=== PATIENT | female | born 1925 | race Caucasian/White ===

== ENCOUNTER 2016-09-08 17:18 | Inpatient (IN) | payer OTHER ==
[~2016-09-08] VITALS: Ht 149.9 cm; Wt 59.0 kg
[2016-09-08] MEDS ORDERED: SODIUM CHLORIDE 0.9% 1000ML 1,000 ML IV ONE (17:34)
--- NOTE | 2016-09-08 17:42 | EMERGENCY ROOM VISIT NOTE ---
History Report prepared by [place]: Karlo Alfonso Under the Supervision of: Dr. Bruce Min D.O. First contact with patient: 17:26 Chief Complaint: HYPOTENSION Stated Complaint: LOW BP, FEVER- PHYSICIAN REFERRED History of Present Illness The patient is an 89 year old female who presents to the Emergency Room with complaints of persistent hypotension that was detected prior to arrival today. She states that she saw her primary care physician prior to arrival today, and she was found to have a fever of 102 in addition to the hypotension. She was then referred here for evaluation. For the past few weeks, the patient states that she has had multiple episodes at night where she gets very cold and needs more covers. She then wakes up in the middle of the night, hot and diaphoretic. She says that she has never had anything like that before. The patient notes that she has had a mild headache recently as well as low left-sided back pain. She has been feeling nauseous and had dry heaves occasionally. She denies vomiting, urinary symptoms, or leg swelling. The patient sees a oracle database manager regularly. She is an ex-smoker and does not drink alcohol. Her medical problems include hypertension and acid reflux. She takes medication for her hypertension and acid reflux. She also takes a baby aspirin regularly. The patient has had a hysterectomy. Source of History: patient, family Onset: Detected prior to arrival today Position: other (global - hypotension) Timing: other (persistent) Associated Symptoms: + back pain, + diaphoresis, + fevers, + headache, + nausea, No urinary symptoms, No vomiting Note: Associated symptoms: Episodes of being cold at night. Denies leg swelling. Review of Systems See HPI for pertinent positives & negatives. A total of 10 systems reviewed and were otherwise negative. Past Medical & Surgical Medical Problems: (1) Acid reflux (2) Complicated UTI (urinary tract infection) (3) HTN (hypertension) Surgical Problems: (1) History of hysterectomy Family History Family history omitted secondary to advanced age. Social History Smoking Status: Former Smoker Alcohol Use: none Marital Status: Occupation Status: retired Current/Historical Medications Scheduled Aspirin (Aspirin Chewable), 81 MG PO DAILY Furosemide (Lasix), 20 MG PO DAILY Lisinopril (Zestril), 40 MG PO DAILY Multiple Vitamins W/ Minerals (Centrum Silver Adult 50+), 1 TAB PO DAILY Omeprazole (Prilosec), 20 MG PO DAILY Potassium Chloride (Klor-Con M20), 20 MEQ PO DAILY Allergies Coded Allergies: Aspirin (Unverified Allergy, Unknown, unknown, 09/08/16) Codeine (Unverified Allergy, Unknown, unknown, 09/08/16) Physical Exam Vital Signs Date Time Temp Pulse Resp B/P Pulse Ox O2 Delivery O2 Flow Rate FiO2 09/08/16 19:31 77 20 122/55 97 Room Air 09/08/16 17:44 97 Room Air 09/08/16 17:34 90 09/08/16 17:21 37.4 93 18 113/62 97 Room Air Physical Exam GENERAL: Patient is awake, alert, and in no acute distress. Patient is resting comfortably and showing no signs of anxiety EYES: The conjunctivae are clear. The pupils are round and reactive. EARS, NOSE, MOUTH AND THROAT: The nose is without any evidence of any deformity. Mucous membranes are dry tongue is midline NECK: The neck is nontender and supple. RESPIRATORY: Lung sounds diminished at both bases, faint rales noted at both bases. CARDIOVASCULAR: Regular rate and rhythm noted there no murmurs rubs or gallops normal S1 normal S2 GASTROINTESTINAL: The abdomen is mildly distended but soft, no specific tenderness, guarding, or rigidity noted. BACK: No midline tenderness or or step-off noted range of motion in flexion extension as well as rotation no signs of muscle spasm noted MUSCULOSKELETAL/EXTREMITIES: There is no evidence of gross deformity full range of motion is noted in the hips and shoulders SKIN: There is no obvious evidence of any rash. There are no petechiae, pallor or cyanosis noted. NEUROLOGIC: Patient is awake alert and oriented x3. Medical Decision & Procedures ER Provider Diagnostic Interpretation: Radiology results as stated below per my review and radiologist interpretation: CHEST ONE VIEW PORTABLE CLINICAL HISTORY: Sepsis fever COMPARISON STUDY: None FINDINGS: Moderate cardiomegaly. Infiltrate left base. Lungs otherwise appear clear. IMPRESSION: Infiltrate left base. Moderate cardiomegaly. Electronically signed by: Neal Obrien M.D. 09/08/2016 6:20 PM Dictated Date/Time: 09/08/2016 6:19 PM ABDOMEN AND PELVIS CT WITHOUT CONTRAST CT DOSE: 273.63 mGy.cm HISTORY: Flank pain left flank pain TECHNIQUE: Multiaxial CT images of the abdomen and pelvis were performed without contrast. COMPARISON STUDY: None. FINDINGS: Focal infiltrate left base. Small left effusion. Small fixed hernia. Right base is clear. Moderate cortical scarring right kidney. Liver is unremarkable. Left renal hydronephrosis. Mild left renal perinephric fat stranding. 5 mm obstructing calculus distal left ureter. Bladder is midline. Chronic colonic diverticulosis. Nonobstructive bowel pattern. IMPRESSION: 1. 5 mm obstructing calculus distal left ureter. 2. Left renal hydroureteronephrosis. 3. Small parenchymal infiltrate left base combined with a small left effusion. Electronically signed by: Neal Obrien M.D. 09/08/2016 6:29 PM Dictated Date/Time: 09/08/2016 6:27 PM Laboratory Results Test 09/08/16 00:00 09/08/16 17:39 09/08/16 17:44 09/08/16 19:15 Stool Occult Blood NEGATIVE (NEGATIVE) Erythrocyte Sedimentation Rate > 90 mm/hr (0-21) Prothrombin Time 11.6 SECONDS (9.0-12.0) Prothromb Time International Ratio 1.1 (0.9-1.1) Activated Partial Thromboplast Time 27.3 SECONDS (21.0-31.0) Partial Thromboplastin Ratio 1.1 Magnesium Level 2.2 mg/dl (1.8-2.4) Total Bilirubin 0.6 mg/dl (0.2-1) Aspartate Amino Transf (AST/SGOT) 28 U/L (15-37) Alanine Aminotransferase (ALT/SGPT) 35 U/L (12-78) Alkaline Phosphatase 76 U/L (45-117) Total Creatine Kinase 74 U/L (26-192) Creatine Kinase MB < 0.5 ng/ml (0.5-3.6) Creatine Kinase MB Ratio (0-3.0) Troponin I < 0.015 ng/ml (0-0.045) C-Reactive Protein 21.50 mg/dl (0-0.29) Pro-B-Type Natriuretic Peptide 1417 pg/ml (0-1800) Total Protein 7.3 gm/dl (6.4-8.2) Albumin 2.5 gm/dl (3.4-5.0) Globulin 4.8 gm/dl (2.5-4.0) Albumin/Globulin Ratio 0.5 (0.9-2) Lipase 129 U/L (73-393) Thyroid Stimulating Hormone (TSH) 1.510 uIu/ml (0.300-4.500) Bedside Lactic Acid Venous 1.11 mmol/L (0.90-1.70) Urine Color DK YELLOW Urine Appearance CLOUDY (CLEAR) Urine pH 5.0 (4.5-7.5) Urine Specific [place] 1.016 (1.000-1.030) Urine Protein 2+ (NEG) Urine Glucose (UA) NEG (NEG) Urine Ketones NEG (NEG) Urine Occult Blood 1+ (NEG) Urine Nitrite NEG (NEG) Urine Bilirubin NEG (NEG) Urine Urobilinogen NEG (NEG) Urine Leukocyte Esterase LARGE (NEG) Urine WBC (Auto) >30 /hpf (0-5) Urine RBC (Auto) 0-4 /hpf (0-4) Urine Hyaline Casts (Auto) 1-5 /lpf (0-5) Urine Epithelial Cells (Auto) 0-5 /lpf (0-5) Urine Bacteria (Auto) 4+ (NEG) Date/Time Source Procedure Growth Status 09/08/16 00:00 Stool C.difficile Toxin B Gene (PCR) - Final No C. difficile toxin B gene detected Complete Laboratory results per my review. Medications Administered Medications (Trade) Dose Ordered Sig/Rissa Route Start Time Stop Time Status Last Admin Dose Admin Sodium Chloride (Nss 1000ml) 1,000 ml @ 999 mls/hr Q1H1M ONCE IV 09/08/16 17:34 09/08/16 18:34 DC 09/08/16 17:58 999 MLS/HR Acetaminophen (Tylenol Tab) 650 mg ONE ONCE PO 09/08/16 17:45 09/08/16 17:46 DC 09/08/16 17:59 650 MG Levofloxacin (Levaquin / D5W) 750 mg NOW STAT IV 09/08/16 18:46 09/08/16 18:47 DC 09/08/16 20:11 750 MG Piperacillin Sod/ Tazobactam Sod 3.375 gm 3.375 gm NOW STAT IV 09/08/16 18:46 09/08/16 18:47 DC 09/08/16 18:46 3.375 GM Sodium Chloride (Nss 1000ml) 1,000 ml @ 250 mls/hr Q4H STAT IV 4/19/17 19:16 09/08/16 21:42 DC 09/08/16 19:29 250 MLS/HR Tamsulosin HCl (Flomax Cap) 0.4 mg NOW STAT PO 09/08/16 20:00 09/08/16 20:01 DC 09/08/16 20:00 0.4 MG ECG Indication: nausea Rate (beats per minute): 83 Rhythm: normal sinus Findings: no ectopy, other (no acute ST segment abnormalities) Comparison ECG Date: no prior available ED Course 172: The patient was evaluated in room B2. A complete history and physical examination were performed. 173: Ordered NSS 1000 ml @ 999 mls/hr IV. 174: Ordered Tylenol Tab 650 mg PO. 1849: I reevaluated the patient and she is resting comfortably. The patient verbally expressed understanding and agreement with the treatment plan. The patient will be evaluated for further treatment. 1915: Ordered NSS 1000 ml @ 250 mls/hr IV. 1916: I discussed the patient with Dr. Jazz Macias inspector bullet slugs. He will evaluate the patient for further treatment. Medical Decision Triage Nursing notes reviewed. Additional history obtained from family. Differential diagnosis: Etiologies such as viral syndrome, otitis, pharyngitis, pneumonia, influenza, meningitis, urinary tract infection, sepsis, bacteremia, as well as others were entertained. The patient is an 89-year-old female who presented to the emergency department for fever and weakness. The patient was seen her primary care physician's office and was sent to the emergency department for hypotension and fever. The patient also had left flank pain. I was unsure if her symptoms were secondary to pyelonephritis but degree of pain prompting a CAT scan the abdomen and pelvis. This did reveal signs of a distal left ureteral calculus with hydronephrosis. Her urinalysis appeared to be consistent with urinary tract infection. The patient was given IV fluids and IV antibiotics in the emergency department. She was reevaluated multiple times. I discussed the patient's laboratory and radiographic studies with her and her family members. I also discussed his case with the on-call [facility] hospitalist. They've agreed to evaluate the patient in the emergency department for further management and disposition. Consults Time Called: 1914 Consulting Physician: Dr. Jazz Macias inspector [employer] Returned Call: 1916 I discussed the patient with Dr. Jazz Macias inspector bullet slugs. He will evaluate the patient for further treatment. Impression Primary Impression: Pneumonia involving left lung Additional Impressions: Left ureteral calculus Hydronephrosis, left Pyelonephritis Scribe Attestation The scribe's documentation has been prepared under my direction and personally reviewed by me in its entirety. I confirm that the note above accurately reflects all work, treatment, procedures, and medical decision making performed by me. Departure Information Dispostion Being Evaluated By Hospitalist Vira Casey M.D. (PCP) Patient Instructions My [facility] Problem Qualifiers Primary Impression: Pneumonia involving left lung Pneumonia type: due to unspecified organism Lung location: lower lobe of lung Qualified Codes: J18.1 - Lobar pneumonia, unspecified organism
[2016-09-08] MEDS ORDERED: ACETAMINOPHEN 325 MG TAB PO ONE (17:45)
[2016-09-08 18:04] LABS: MEAN CELL VOLUME 88.7 fL (80-100); MEAN CORPUSCULAR HEMOGLOBIN 30.1 pg (25-34); MEAN CORPUSCULAR HGB CONC 33.9 g/dl (32-36); PLATELET COUNT 373 K/uL (130-400); RED BLOOD COUNT 3.72 M/uL (4.2-5.4); WHITE BLOOD COUNT 14.57 K/uL (4.8-10.8)
[2016-09-08] MEDS ORDERED: MCRK20 PO (18:08)
[2016-09-08] MEDS ORDERED: ASPCH81X PO (18:08)
[2016-09-08] MEDS ORDERED: PRLSR20 PO (18:08)
[2016-09-08] MEDS ORDERED: MULT-845 PO (18:08)
[2016-09-08] MEDS ORDERED: FURO-85 PO (18:08)
[2016-09-08] MEDS ORDERED: LISI40TA PO (18:08)
[2016-09-08 18:15] LABS: INR 1.1 (0.9-1.1); PARTIAL THROMBOPLASTIN RATIO 1.1; PROTHROMBIN TIME (PATIENT) 11.6 SECONDS (9.0-12.0)
--- NOTE | 2016-09-08 18:22 | DIAGNOSTIC IMAGING REPORT ---
CHEST ONE VIEW PORTABLE CLINICAL HISTORY: Sepsis fever COMPARISON STUDY: None FINDINGS: Moderate cardiomegaly. Infiltrate left base. Lungs otherwise appear clear. IMPRESSION: Infiltrate left base. Moderate cardiomegaly. Electronically signed by: Neal Obrien M.D. 09/08/2016 6:20 PM Dictated Date/Time: 09/08/2016 6:19 PM
[2016-09-08 18:23] LABS: ALT/SGPT 35 U/L (12-78); AST/SGOT 28 U/L (15-37); BLOOD UREA NITROGEN 35 mg/dl (7-18); BUN/CREATININE RATIO 17.5 (10-20); CALCIUM 8.4 mg/dl (8.5-10.1); CARBON DIOXIDE 21 mmol/L (21-32); CHLORIDE 102 mmol/L (98-107); GLUCOSE 128 mg/dl (70-99); MAGNESIUM 2.2 mg/dl (1.8-2.4); POTASSIUM 4.3 mmol/L (3.5-5.1); SODIUM 133 mmol/L (136-145)
[2016-09-08 18:28] LABS: BASO % 0.1 %; BASO ABS # 0.02 K/uL (0-0.2); COMPLETE YES; EOS % 0.1 %; IG% 0.2 %; LYMPH % 6.5 %; LYMPH ABS # 0.94 K/uL (1.2-3.4); MONO % 5.3 %; NEUT % 87.8 %
[2016-09-08 18:32] LABS: ALB/GLOB RATIO 0.5 (0.9-2); ALKALINE PHOSPHATASE 76 U/L (45-117); PHOSPHORUS 2.4 mg/dl (2.5-4.9)
--- NOTE | 2016-09-08 18:32 | DIAGNOSTIC IMAGING REPORT ---
ABDOMEN AND PELVIS CT WITHOUT CONTRAST CT DOSE: 273.63 mGy.cm HISTORY: Flank pain left flank pain TECHNIQUE: Multiaxial CT images of the abdomen and pelvis were performed without contrast. COMPARISON STUDY: None. FINDINGS: Focal infiltrate left base. Small left effusion. Small fixed hernia. Right base is clear. Moderate cortical scarring right kidney. Liver is unremarkable. Left renal hydronephrosis. Mild left renal perinephric fat stranding. 5 mm obstructing calculus distal left ureter. Bladder is midline. Chronic colonic diverticulosis. Nonobstructive bowel pattern. IMPRESSION: 1. 5 mm obstructing calculus distal left ureter. 2. Left renal hydroureteronephrosis. 3. Small parenchymal infiltrate left base combined with a small left effusion. Electronically signed by: Neal Obrien M.D. 09/08/2016 6:29 PM Dictated Date/Time: 09/08/2016 6:27 PM
[2016-09-08] MEDS ORDERED: LEVAQUIN 750MG / 150ML D5W IV STA (18:46)
[2016-09-08] MEDS ORDERED: PIPERACILLIN/TAZOBACTAM 3.375 GM/100ML D5W IV STA (18:46)
[2016-09-08] MEDS ORDERED: SODIUM CHLORIDE 0.9% 1000ML 1,000 ML IV STA (19:16)
[2016-09-08 19:47] LABS: URINE APPEARANCE CLOUDY (CLEAR); URINE BILIRUBIN NEG (NEG); URINE COLOR DK YELLOW; URINE EPITHELIAL CELL AUTO 0-5 /lpf (0-5); URINE NITRITE NEG (NEG); URINE SPECIFIC GRAVITY 1.016 (1.000-1.030); UROBILINOGEN NEG (NEG); ZZURINE CULT IF INDIC CATH YES
[2016-09-08 19:53] LABS: MANUAL MICROSCOPIC REQUIRED? NO; REVIEW REQ? NO
[2016-09-08] MEDS ORDERED: TAMSULOSIN HCL 0.4 MG CAP PO STA (20:00)
[2016-09-08] MEDS ORDERED: ACETAMINOPHEN 325 MG TAB PO PRN (20:30)
[2016-09-08] MEDS ORDERED: ONDANSETRON INJ 2 MG/ML 2 ML VIAL IV PRN (20:30)
[2016-09-08] MEDS ORDERED: SODIUM PHOSPHATE 3 MMOL/1 ML INFUSION IV ONE (20:30)
[2016-09-08] MEDS ORDERED: TRAMADOL HCL 50 MG TAB PO PRN (20:30)
[2016-09-08] MEDS ORDERED: HYDROmorphone INJ 0.5 MG/0.5 ML SYR IV PRN (20:30)
[2016-09-08] MEDS ORDERED: SODIUM PHOSPHATE INJ 15 MMOL in SODIUM CHLORIDE 0.9% 250ML 250 ML IV STA (21:21)
[2016-09-08] MEDS: SODIUM CHLORIDE 0.9% 1000ML 1,000 ML IV SCH (21:55)
[2016-09-08 22:04] VITALS: BP 148/74; PULSE 82; TEMP 36.4; O2SAT 98; Ht 149.9 cm; Wt 59.0 kg
--- NOTE | 2016-09-08 22:16 | HISTORY & PHYSICAL EXAMINATION ---
DATE OF ADMISSION: 09/08/2016 PRIMARY CARE PHYSICIAN: Dr. Norah Betts obtained from px and records. CHIEF COMPLAINT: Left flank pain, low blood pressure. HISTORY OF PRESENT ILLNESS: Medical history significant for hypertension, past tobacco abuse, chronic renal insufficiency (baseline creatinine of 1.3-1.5), hx mixed urinary incontinence as per records. hx GERD, diverticulosis, colonic polyps, internal hemorrhoids, Hypothyroidism. Few days' history of achy left flank pain. No chest pain, no shortness of breath. Denies cough, aspiration. Fever 102 at home, chills. Diarrhea, which she has from time to time. non-bloody. No recent antibiotics. No known sick contacts. Patient seen at PCP's office. Blood pressure noted to be on the low side, 100s. Patient sent to the Emergency Room. Given Levaquin and Zosyn for possible UTI. MEDICAL HISTORY: As above. Colonoscopy in 2011 showed polyps, diverticulosis, internal hemorrhoids. SURGICAL HISTORY: She has had hysterectomy, cholecystectomy, cystoscopy, gynecologic procedures. HOME MEDICATIONS: Include lisinopril, furosemide, omeprazole, potassium chloride, aspirin, multivitamins. ALLERGIES: CODEINE, NSAIDS. FAMILY HISTORY: Heart disease, liver cancer. PERSONAL AND SOCIAL HISTORY: Past tobacco abuse. No chronic intake of alcoholic beverages. Retired from factory work. REVIEW OF SYSTEMS: As per HPI. All other ROS negative. PHYSICAL EXAMINATION: VITAL SIGNS: Blood pressure was noted to be 113/62, pulse rate 92, RR 18 T 36.6 , sats 98 on room air. GENERAL: Noted to be comfortable. Looks younger for stated age. SKIN: Pallor. HEENT: Pale palpebral conjunctivae. Dry mucosa. NECK: Short. LUNGS: Decreased breath sounds. HEART: Regular rate and rhythm. ABDOMEN: Left abdominal tenderness. EXTREMITIES: No edema. no tenderness NEUROLOGIC: No gross focality. LABORATORY DATA: Hemoglobin was noted to be 11.3, hematocrit 30, white count 14.5, platelets 373. Sodium 133, potassium 4.3, chloride 102, BUN 35, creatinine 2, glucose of 128. Chest x-ray, infiltrate in the left base, moderate cardiomegaly. CT abdomen and pelvis, a 5-mm obstructing calculus, distal left ureter, left renal hydronephrosis. UA, WBC esterase positive, occult blood. ASSESSMENT: 1. Complicated urinary tract infection possible sepsis. 2. Hypertension, stable 3. ARF on CRI poss from obstructive uropathy. 4. Diarrhea, possible irritable bowel syndrome, seems to be chronic. 5. Anemia. Hemoglobin drop from patient's baseline this month possibly from microscopic hematuria, renal disease ro occult GI bleed 6. hx past tobacco abuse. PLAN: GMF Cultures, IV Ceftriaxone monitor crea response to IV fluids. Hold home diuretics, MADISYN inhibitor until creatinine at baseline strain urine, Flomax trial. Urology consult RE obstructive uropathy. Anemia workup. DVT prophylaxis SCDs RE anemia. Full code. MTDD
[2016-09-08 23:20] VITALS: BP 159/77; PULSE 79; TEMP 36.6; O2SAT 99
[2016-09-09] MEDS ORDERED: LOPERAMIDE HCL 2 MG CAP PO PRN (01:15)
[2016-09-09] MEDS ORDERED: LORAZEPAM 0.5 MG TAB PO STA (03:09)
[2016-09-09 05:41] LABS: HEMATOCRIT 27.1 % (37-47); MEAN CELL VOLUME 88.9 fL (80-100); MEAN CORPUSCULAR HEMOGLOBIN 30.5 pg (25-34); MEAN CORPUSCULAR HGB CONC 34.3 g/dl (32-36); MEAN PLATELET VOLUME 8.3 fL (7.4-10.4); PLATELET COUNT 270 K/uL (130-400); RED BLOOD COUNT 3.05 M/uL (4.2-5.4); WHITE BLOOD COUNT 11.61 K/uL (4.8-10.8)
[2016-09-09 06:03] LABS: BASO % 0.2 %; BASO ABS # 0.02 K/uL (0-0.2); COMPLETE YES; ECHINOCYTES 1+; EOS % 0.4 %; IG% 0.4 %; LYMPH % 6.4 %; LYMPH ABS # 0.74 K/uL (1.2-3.4); MONO % 5.1 %; NEUT % 87.5 %
[2016-09-09 06:20] LABS: BUN/CREATININE RATIO 16.2 (10-20); CREATININE 1.8 mg/dl (0.60-1.20); FERRITIN 495.5 ng/ml (8.0-388.0); PHOSPHORUS 4.1 mg/dl (2.5-4.9); POTASSIUM 3.6 mmol/L (3.5-5.1)
[2016-09-09 07:16] VITALS: BP 125/73; PULSE 87; TEMP 36.7; O2SAT 94
[2016-09-09] MEDS: TAMSULOSIN HCL 0.4 MG CAP PO SCH (07:47)
[2016-09-09] MEDS: PANTOprazole SOD 40 MG TAB PO SCH (07:48)
[2016-09-09] MEDS: CEROVITE ADV FORMULA TAB PO SCH (07:48)
[2016-09-09 08:00] VITALS: O2SAT 94
[2016-09-09] MEDS ORDERED: CEFTRIAXONE SOD INJ 1 GM in DEXTROSE 5% ADD-VANTAGE 50ML 50 ML IV SCH (08:00)
--- NOTE | 2016-09-09 09:51 | Clinical Documentation Query ---
QUERY 1 OF [address] SAUCEDA, In your clinical opinion is this patient being managed for: ( ) Pneumonia ( ) Other explanation of clinical findings (Please Explain) ( ) Unable to determine (Please Define) ( ) Need to Discuss ( + ) Not Agree Clinically has no signs of pneumonia. IV Rocephin is for complicated UTI, not for pneumonia The medical record reflects the following clinical findings, treatment, and risk factors. Clinical Indicators: 89 yo female presenting with fever, hypotension. CXR showed Infiltrate left base. Lung sounds diminished with faint rales bibasilar. WBC 14.54. ER impression suggests L lung pneumonia. Treatment: IV fluids, IV rocephin, APAP, IV levaquin, IV zosyn, Risk Factors: age, chronic kidney disease QUERY 2 OF 3 In your clinical opinion is this patient being managed for: (+ ) L ureteral calculus with L renal hydronephrosis ( ) Other explanation of clinical findings (Please Explain) ( ) Unable to determine (Please Define) ( ) Need to Discuss ( ) Not Agree The medical record reflects the following clinical findings, treatment, and risk factors. Clinical Indicators: CT abdomen and pelvis showed a 5-mm obstructing calculus, distal left ureter, left renal hydronephrosis. Treatment: IV fluids, IV levaquin, IV zosyn, IV rocephin, Urology consult Risk Factors: age, gender, several weeks of symptoms, UTI QUERY 3 OF 3 In your clinical opinion is this patient being managed for: ( + ) Chronic kidney disease, stage 3 ( ) Chronic kidney disease, stage 4 ( ) Other explanation of clinical findings (Please Explain) ( ) Unable to determine (Please Define) ( ) Need to Discuss ( ) Not Agree The medical record reflects the following clinical findings, treatment, and risk factors. Clinical Indicators: H/P reflects pt with chronic renal insufficiency (baseline Cr 1.3-1.5). Documenting the stage of CKD will improve data integrity and will help clarify vague terms such as "chronic renal insufficiency". GFR during this acute renal failure is 21.5-24.5. No available historical data in [employer]. Treatment: monitor PRP's, treat acute renal failure, and manage HTN Risk Factors: age, HTN Please clarify and document your clinical opinion in the progress notes and discharge summary. Terms such as "probable", "suspected", "likely", "questionable", "possible", or "still to be ruled out" are acceptable. IF IN AGREEMENT, YOU MUST DOCUMENT ABOVE DIAGNOSTIC STATEMENT IN DAILY PROGRESS NOTES AND DISCHARGE SUMMARY. This document is not part of the patient's record. Thank You, Debbie Babb RN [phone]
[2016-09-09] MEDS: SODIUM CHLORIDE 0.9% 1000ML 1,000 ML IV SCH (11:05)
[2016-09-09 14:44] VITALS: BP 122/70; PULSE 95; TEMP 36.6; O2SAT 97
--- NOTE | 2016-09-09 15:29 | Progress Note ---
Internal Med Progress Note Date of Service: Sep 09, 2016. Provider Documentation: SUBJECTIVE: Patient is doing better Left flank pain has improved No nausea, vomiting, fever, abdominal pain, chills since in hospital OBJECTIVE: Vital Signs-as noted below Exam: General-AAOX3, no distress Neck-Supple, NO JVD Lungs-AEBE, no wheezing Heart-S1, S2 normal, no murmurs Abdomen-Soft, non tender, non distended, BS present, Left flank tenderness + Extremities-No edema Lab data as noted below. ASSESSMENT & PLAN: ASSESSMENT AND PLAN: COMPLICATED UTI: CT scan shows 5 mm stone in left ureteral calculus -Afebrile here, leucocytosis trending down -IV Rocephin (Day 1) -IV Fluids. Hold diuretics -CT abd/pelvis- 5 mm left distal ureter stone, left hydroureteronephrosis, small parenchymal infiltrate left base MANE ON CKD-III -Obstructive ? -IV Fluids -Hold home MADISYN-1 LEFT URETERAL CALCULUS (5 MM) WITH LEFT HYDROURETERONEPHROSIS - -Per ct scan -IV Fluids, Flomax trial -Urology consulted ABNORMAL CXR Shows left lower base infiltrate, however, clinically has no signs of pneumonia - No cough, fever, chills, chest pain, hypoxia, SOB. HTN-Stable ANEMIA-Stable HX OF TOBACCO ABUSE DVT PROPHYLAXIS- SCDS DISPOSITION Home when stable Full code. Vital Signs: Date Time Temp Pulse Resp B/P Pulse Ox O2 Delivery O2 Flow Rate FiO2 09/09/16 16:00 96 Room Air 09/09/16 14:44 36.6 95 18 122/70 97 Room Air 09/09/16 08:00 94 Room Air 09/09/16 07:16 36.7 87 20 125/73 94 Room Air 09/09/16 00:00 Room Air 09/08/16 23:20 36.6 79 16 159/77 99 Room Air 09/08/16 22:04 36.4 82 18 148/74 98 Room Air 09/08/16 21:26 80 20 138/70 98 09/08/16 21:21 80 20 138/70 98 Room Air 09/08/16 19:31 77 20 122/55 97 Room Air 09/08/16 17:44 97 Room Air 09/08/16 17:34 90 09/08/16 17:21 37.4 93 18 113/62 97 Room Air Lab Results: Results Past 24 Hours Test 09/08/16 17:39 09/08/16 17:44 09/08/16 19:15 09/09/16 05:10 Range/Units White Blood Count 14.57 11.61 4.8-10.8 K/uL Red Blood Count 3.72 3.05 4.2-5.4 M/uL Hemoglobin 11.2 9.3 12.0-16.0 g/dL Hematocrit 33.0 27.1 37-47 % Mean Corpuscular Volume 88.7 88.9 80-100 fL Mean Corpuscular Hemoglobin 30.1 30.5 25-34 pg Mean Corpuscular Hemoglobin Concent 33.9 34.3 32-36 g/dl Platelet Count 373 270 130-400 K/uL Mean Platelet Volume 9.0 8.3 7.4-10.4 fL Neutrophils (%) (Auto) 87.8 87.5 % Lymphocytes (%) (Auto) 6.5 6.4 % Monocytes (%) (Auto) 5.3 5.1 % Eosinophils (%) (Auto) 0.1 0.4 % Basophils (%) (Auto) 0.1 0.2 % Neutrophils # (Auto) 12.80 10.16 1.4-6.5 K/uL Lymphocytes # (Auto) 0.94 0.74 1.2-3.4 K/uL Monocytes # (Auto) 0.77 0.59 0.11-0.59 K/uL Eosinophils # (Auto) 0.01 0.05 0-0.5 K/uL Basophils # (Auto) 0.02 0.02 0-0.2 K/uL RDW Standard Deviation 42.9 43.6 36.4-46.3 fL RDW Coefficient of Variation 13.1 13.3 11.5-14.5 % Immature Granulocyte % (Auto) 0.2 0.4 % Immature Granulocyte # (Auto) 0.03 0.05 0.00-0.02 K/uL Erythrocyte Sedimentation Rate > 90 0-21 mm/hr Prothrombin Time 11.6 9.0-12.0 SECONDS Prothromb Time International Ratio 1.1 0.9-1.1 Activated Partial Thromboplast Time 27.3 21.0-31.0 SECONDS Partial Thromboplastin Ratio 1.1 Sodium Level 133 139 136-145 mmol/L Potassium Level 4.3 3.6 3.5-5.1 mmol/L Chloride Level 102 109 98-107 mmol/L Carbon Dioxide Level 21 20 21-32 mmol/L Anion Gap 10.0 10.0 3-11 mmol/L Blood Urea Nitrogen 35 29 7-18 mg/dl Creatinine 2.00 1.80 0.60-1.20 mg/dl Estimated GFR () 25.0 28.4 Estimated GFR (Non- 21.6 24.5 BUN/Creatinine Ratio 17.5 16.2 10-20 Random Glucose 128 108 70-99 mg/dl Calcium Level 8.4 7.0 8.5-10.1 mg/dl Phosphorus Level 2.4 4.1 2.5-4.9 mg/dl Magnesium Level 2.2 1.8-2.4 mg/dl Total Bilirubin 0.6 0.2-1 mg/dl Aspartate Amino Transf (AST/SGOT) 28 15-37 U/L Alanine Aminotransferase (ALT/SGPT) 35 12-78 U/L Alkaline Phosphatase 76 45-117 U/L Total Creatine Kinase 74 26-192 U/L Creatine Kinase MB < 0.5 0.5-3.6 ng/ml Creatine Kinase MB Ratio 0-3.0 Troponin I < 0.015 0-0.045 ng/ml C-Reactive Protein 21.50 0-0.29 mg/dl Pro-B-Type Natriuretic Peptide 1417 0-1800 pg/ml Total Protein 7.3 6.4-8.2 gm/dl Albumin 2.5 3.4-5.0 gm/dl Globulin 4.8 2.5-4.0 gm/dl Albumin/Globulin Ratio 0.5 0.9-2 Lipase 129 73-393 U/L Thyroid Stimulating Hormone (TSH) 1.510 0.300-4.500 uIu/ml Bedside Lactic Acid Venous 1.11 0.90-1.70 mmol/L Urine Color DK YELLOW Urine Appearance CLOUDY CLEAR Urine pH 5.0 4.5-7.5 Urine Specific [place] 1.016 1.000-1.030 Urine Protein 2+ NEG Urine Glucose (UA) NEG NEG Urine Ketones NEG NEG Urine Occult Blood 1+ NEG Urine Nitrite NEG NEG Urine Bilirubin NEG NEG Urine Urobilinogen NEG NEG Urine Leukocyte Esterase LARGE NEG Urine WBC (Auto) >30 0-5 /hpf Urine RBC (Auto) 0-4 0-4 /hpf Urine Hyaline Casts (Auto) 1-5 0-5 /lpf Urine Epithelial Cells (Auto) 0-5 0-5 /lpf Urine Bacteria (Auto) 4+ NEG Echinocytes 1+ Absolute Reticulocyte Count 0.02 0.02-0.10 10^6/uL Percent Reticulocyte Count 0.6 0.5-2.0 % Est Creatinine Clear Calc Drug Dose 16.6 ml/min Iron Level 28 35-150 mcg/dl Total Iron Binding Capacity 157 250-450 mcg/dl Transferrin 131 200-360 mg/dl Transferrin % Saturation 15 15-50 % Ferritin 495.5 8.0-388.0 ng/ml Vitamin B12 Level 1251 211-911 pg/mL Folate > 24.00 >5.38 ng/mL Microbiology Results 09/08/16 Blood Culture, Received Pending 09/08/16 Blood Culture, Received Pending 09/08/16 Urine Culture - Preliminary, Resulted Gram Negative Bacilli Gram Negative Bacilli#2
[2016-09-09 16:00] VITALS: O2SAT 96
--- NOTE | 2016-09-09 19:55 | Urology Consultation ---
History General Date of Service: Sep 09, 2016. Chief Complaint: uti Primary Care Physician: Vira Almazan M.D. Pt seen a urologist before?: No History of Present Illness I am asked by Dr hernandez to evaluate and treat patient for uti. She is admitted from ER. She came in with fever and left back pain. She was found to have dirty urine leukocytosis and elevated creatinine. She did not have nausea or emesis at home. She has never had kidney stones before. The ct shows mild left hydro, some inflammatory changes around kidney and the report calls a 5mm distal left ureteral stone. She is improving on iv antibiotics. no fevers and white count and creatinine improved with fluids. She says she has a dropped bladder. Imaging Imaging: CT Laboratory Results Past 24 Hours Test 09/09/16 05:10 Range/Units White Blood Count 11.61 4.8-10.8 K/uL Red Blood Count 3.05 4.2-5.4 M/uL Hemoglobin 9.3 12.0-16.0 g/dL Hematocrit 27.1 37-47 % Mean Corpuscular Volume 88.9 80-100 fL Mean Corpuscular Hemoglobin 30.5 25-34 pg Mean Corpuscular Hemoglobin Concent 34.3 32-36 g/dl Platelet Count 270 130-400 K/uL Mean Platelet Volume 8.3 7.4-10.4 fL Neutrophils (%) (Auto) 87.5 % Lymphocytes (%) (Auto) 6.4 % Monocytes (%) (Auto) 5.1 % Eosinophils (%) (Auto) 0.4 % Basophils (%) (Auto) 0.2 % Neutrophils # (Auto) 10.16 1.4-6.5 K/uL Lymphocytes # (Auto) 0.74 1.2-3.4 K/uL Monocytes # (Auto) 0.59 0.11-0.59 K/uL Eosinophils # (Auto) 0.05 0-0.5 K/uL Basophils # (Auto) 0.02 0-0.2 K/uL RDW Standard Deviation 43.6 36.4-46.3 fL RDW Coefficient of Variation 13.3 11.5-14.5 % Immature Granulocyte % (Auto) 0.4 % Immature Granulocyte # (Auto) 0.05 0.00-0.02 K/uL Echinocytes 1+ Absolute Reticulocyte Count 0.02 0.02-0.10 10^6/uL Percent Reticulocyte Count 0.6 0.5-2.0 % Sodium Level 139 136-145 mmol/L Potassium Level 3.6 3.5-5.1 mmol/L Chloride Level 109 98-107 mmol/L Carbon Dioxide Level 20 21-32 mmol/L Anion Gap 10.0 3-11 mmol/L Blood Urea Nitrogen 29 7-18 mg/dl Creatinine 1.80 0.60-1.20 mg/dl Est Creatinine Clear Calc Drug Dose 16.6 ml/min Estimated GFR () 28.4 Estimated GFR (Non- 24.5 BUN/Creatinine Ratio 16.2 10-20 Random Glucose 108 70-99 mg/dl Calcium Level 7.0 8.5-10.1 mg/dl Phosphorus Level 4.1 2.5-4.9 mg/dl Iron Level 28 35-150 mcg/dl Total Iron Binding Capacity 157 250-450 mcg/dl Transferrin 131 200-360 mg/dl Transferrin % Saturation 15 15-50 % Ferritin 495.5 8.0-388.0 ng/ml Vitamin B12 Level 1251 211-911 pg/mL Folate > 24.00 >5.38 ng/mL Labs were reviewed and are within normal limits unless listed below. Labs are available in the chart and at [facility] Problem List Medical Problems: (1) Hydronephrosis, left Status: Acute (2) Left ureteral calculus Status: Acute (3) Pneumonia involving left lung Status: Acute Past History hypertension, hypothyroidism, other (thyroid nodule) Past Surgical History: appendectomy, cholecystectomy, hysterectomy, oophorectomy Family History not relevant at her age Social History Hx Tobacco Use In Past Year?: No Smoking: quit greater than 1 year, other (smoked into her 70's lightly) Alcohol: never Marital status: Housing status: lives with family Occupation status: retired Allergies Coded Allergies: Aspirin (Unverified Allergy, Unknown, unknown, 09/08/16) Codeine (Unverified Allergy, Unknown, unknown, 09/08/16) Medications Home Medications: Home Meds and Scripts Medications Dose Route/Sig Max Daily Dose Days Date Category Aspirin Chewable (Aspirin) 81 Mg Chew 81 Mg PO DAILY 09/08/16 Reported Centrum Silver Adult 50+ (Multiple Vitamins W/ Minerals) 1 Tab Tab 1 Tab PO DAILY 09/08/16 Reported Klor-Con M20 (Potassium Chloride) 20 Meq Tabcr 20 Meq PO DAILY 09/08/16 Reported Lasix (Furosemide) 20 Mg Tab 20 Mg PO DAILY 09/08/16 Reported Zestril (Lisinopril) 40 Mg Tab 40 Mg PO DAILY 09/08/16 Reported Prilosec (Omeprazole) 20 Mg Capcr 20 Mg PO DAILY 09/08/16 Reported Inpatient Medications: Current Inpatient Medications Medications (Trade) Dose Ordered Sig/Rissa Route Start Time Stop Time Status Last Admin Dose Admin Tamsulosin HCl 0.4 mg 0.4 mg QAM PO 09/09/16 08:00 10/09/16 08:59 09/09/16 07:47 0.4 MG Ceftriaxone Sodium/Dextrose (Rocephin Inj/ Dextrose Add-[place] 50ML) 50 ml @ 100 mls/hr Q24H IV 09/09/16 08:00 09/19/16 07:59 09/09/16 07:45 100 MLS/HR Acetaminophen (Tylenol Tab) 650 mg Q4H PRN PO 09/08/16 20:30 10/08/16 20:29 Hydromorphone HCl (Dilaudid Inj) 0.5 mg Q3H PRN IV 09/08/16 20:30 09/22/16 20:29 09/09/16 02:35 0.5 MG Tramadol HCl (Ultram Tab) 25 mg Q6H PRN PO 09/08/16 20:30 10/08/16 20:29 Ondansetron HCl (Zofran Inj) 4 mg Q6H PRN IV 09/08/16 20:30 10/08/16 20:29 Multivitamins/ Minerals (Multivitamin W/ Minerals Tab) 1 tab DAILY PO 09/09/16 08:00 10/09/16 08:59 09/09/16 07:48 1 TAB Pantoprazole Sodium 40 mg 40 mg DAILY PO 09/09/16 08:00 10/09/16 08:59 09/09/16 07:48 40 MG Sodium Chloride (Nss 1000ml) 1,000 ml @ 75 mls/hr [id number] IV 09/08/16 21:45 10/08/16 21:44 4/20/17 11:05 75 MLS/HR Loperamide HCl (Imodium Cap) 2 mg UD PRN PO 09/09/16 01:15 10/09/16 01:14 09/09/16 01:15 2 MG Review of Systems Review of Systems Constitutional: + chills, + fever, + problem reported (always feels cold) Neurological: No dizzy Endocrine: + too cold, No tired/sluggish Gastrointestinal: + abdominal pain, + diarrhea Cardiovascular: No chest pain, No palpitations, No swelling ankles/feet Respiratory: No chronic cough, No shortness of breath Female : + infections, No blood in urine, No frequent urination, No kidney stones, No weak stream Physical Exam Vital Signs: Vital Signs Past 12 Hours Date Time Temp Pulse Resp B/P Pulse Ox O2 Delivery O2 Flow Rate FiO2 09/09/16 16:00 96 Room Air 09/09/16 14:44 36.6 95 18 122/70 97 Room Air 09/09/16 08:00 94 Room Air Physical Exam: General Appearance: WD/WN, no apparent distress, + obese, + pertinent finding ( appears much younger than her stated age) ENT: hearing grossly normal Neck: no adenopathy, no JVD, trachea midline Respiratory/Chest: normal breath sounds, no respiratory distress, no accessory muscle use Gastrointestinal: Abdomen: normal abdomen Bladder: normal bladder Renal: normal renal, pertinent finding (her back pain is low near the posterior iliac crest) Hernia: absent hernia Liver: normal liver Extremities: non-tender, normal inspection, no pedal edema, no calf tenderness Neurologic/Psychiatric: alert, normal mood/affect, oriented x 3 Skin: normal color, warm/dry, no rash Lymphatic: no adenopathy Assessment & Plan Assessment & Plan uti might even be left pyelonephritis. she seems to be improving with fluids and ceftriaxone. I am not in agreement that the calcification in the distal ureter area is a ureteral stone. It looks more like a phlebolith to me. She also did not have the severe nausea and emesis most people have with obstructing stones. Her pain also seems too low to be kidney in the back. I favor a non operative approach. Iv antibiotics until sensitivities return then switch to orals. I will see her again tomorrow evening. If she has a clinical change we can consider a stent at a later date.
[2016-09-09 23:18] VITALS: BP 165/76; PULSE 102; TEMP 36.8; O2SAT 97
[2016-09-10] MEDS: SODIUM CHLORIDE 0.9% 1000ML 1,000 ML IV SCH ×2 (02:38→13:35)
[2016-09-10 07:10] VITALS: BP 152/73; PULSE 90; TEMP 36.9; O2SAT 98
[2016-09-10 07:47] LABS: BASO % 0.2 %; BASO ABS # 0.02 K/uL (0-0.2); COMPLETE YES; EOS % 0.7 %; HEMATOCRIT 30.5 % (37-47); IG% 0.4 %; LYMPH % 14.9 %; LYMPH ABS # 1.68 K/uL (1.2-3.4); MEAN CELL VOLUME 88.9 fL (80-100); MEAN CORPUSCULAR HGB CONC 33.8 g/dl (32-36); MEAN PLATELET VOLUME 8.5 fL (7.4-10.4); MONO % 6.3 %; NEUT % 77.5 %; PLATELET COUNT 348 K/uL (130-400); RED BLOOD COUNT 3.43 M/uL (4.2-5.4); WHITE BLOOD COUNT 11.26 K/uL (4.8-10.8)
[2016-09-10 08:32] LABS: BUN/CREATININE RATIO 12.9 (10-20); CREATININE 1.5 mg/dl (0.60-1.20); POTASSIUM 3.4 mmol/L (3.5-5.1)
[2016-09-10 08:55] LABS: CALCIUM 8.2 mg/dl (8.5-10.1)
[2016-09-10] MEDS: TAMSULOSIN HCL 0.4 MG CAP PO SCH (09:11)
[2016-09-10] MEDS: PANTOprazole SOD 40 MG TAB PO SCH (09:11)
[2016-09-10] MEDS: CEROVITE ADV FORMULA TAB PO SCH (09:11)
[2016-09-10] MEDS ORDERED: LEVOFLOXACIN CONSULT ACTIVE PRN (09:30)
[2016-09-10] MEDS ORDERED: [UNRECOGNIZED DRUG - OTHER] PRN (09:45)
[2016-09-10] MEDS: ERTAPENEM IV 500 MG in SODIUM CHLORIDE 0.9% 50 ML IV SCH (10:00)
[2016-09-10] MEDS ORDERED: LEVOFLOXACIN / D5W 750 MG in PREMIXED IN D5W 150 ML IV ONE (10:00)
--- NOTE | 2016-09-10 12:13 | Progress Note ---
Internal Med Progress Note Date of Service: Sep 10, 2016. Provider Documentation: SUBJECTIVE: Patient is doing better. Left flank pain has improved. Frustrated that she didnt get anything to eat. No nausea, vomiting, fever, abdominal pain, chills since in hospital. OBJECTIVE: Vital Signs-as noted below Exam: General-AAOX3, no distress Neck-Supple, NO JVD Lungs-AEBE, no wheezing Heart-S1, S2 normal, no murmurs Abdomen-Soft, non tender, non distended, BS present, Left flank tenderness + Extremities-No edema Lab data as noted below. ASSESSMENT & PLAN: ASSESSMENT AND PLAN: COMPLICATED UTI (ESBL KLEBSIELLA): CT scan shows ?? 5 mm stone in left ureteral calculus -Afebrile here, leucocytosis trending down -IV Rocephin (Day 1)--> Change to IV Invanz for ESBL- Klebsiella -IV Fluids. Hold diuretics -CT abd/pelvis- 5 mm left distal ureter stone, left hydroureteronephrosis, small parenchymal infiltrate left base -Urine c/s - Klebsiella- Multi drug resistant MANE ON CKD-III - Improving -Obstructive ? vs pre renal -IV Fluids -Hold home MADISYN-1 -Monitor QUESTIONABLE LEFT URETERAL CALCULUS (5 MM) WITH LEFT HYDROURETERONEPHROSIS - -Per ct scan, but per urology- less likely to be stone, but mostly phlebolith -IV Fluids, Flomax trial -Per urology plan is for IV antibiotics, conservative approach. If worsens, may consider stent but for now no intervention indicated -Appreciate inputs ABNORMAL CXR Shows left lower base infiltrate, however, clinically has no signs of pneumonia - No cough, fever, chills, chest pain, hypoxia, SOB. HTN-Stable ANEMIA-Stable HX OF TOBACCO ABUSE DVT PROPHYLAXIS- SCDS DISPOSITION Home when stable Full code. Vital Signs: Date Time Temp Pulse Resp B/P Pulse Ox O2 Delivery O2 Flow Rate FiO2 09/10/16 08:00 Room Air 09/10/16 07:10 36.9 90 16 152/73 98 Room Air 09/10/16 00:00 Room Air 09/09/16 23:18 36.8 102 18 165/76 97 Room Air 09/09/16 20:00 Room Air 09/09/16 16:00 96 Room Air 09/09/16 14:44 36.6 95 18 122/70 97 Room Air Lab Results: Results Past 24 Hours Test 09/10/16 07:10 Range/Units White Blood Count 11.26 4.8-10.8 K/uL Red Blood Count 3.43 4.2-5.4 M/uL Hemoglobin 10.3 12.0-16.0 g/dL Hematocrit 30.5 37-47 % Mean Corpuscular Volume 88.9 80-100 fL Mean Corpuscular Hemoglobin 30.0 25-34 pg Mean Corpuscular Hemoglobin Concent 33.8 32-36 g/dl Platelet Count 348 130-400 K/uL Mean Platelet Volume 8.5 7.4-10.4 fL Neutrophils (%) (Auto) 77.5 % Lymphocytes (%) (Auto) 14.9 % Monocytes (%) (Auto) 6.3 % Eosinophils (%) (Auto) 0.7 % Basophils (%) (Auto) 0.2 % Neutrophils # (Auto) 8.72 1.4-6.5 K/uL Lymphocytes # (Auto) 1.68 1.2-3.4 K/uL Monocytes # (Auto) 0.71 0.11-0.59 K/uL Eosinophils # (Auto) 0.08 0-0.5 K/uL Basophils # (Auto) 0.02 0-0.2 K/uL RDW Standard Deviation 44.8 36.4-46.3 fL RDW Coefficient of Variation 13.6 11.5-14.5 % Immature Granulocyte % (Auto) 0.4 % Immature Granulocyte # (Auto) 0.05 0.00-0.02 K/uL Sodium Level 142 136-145 mmol/L Potassium Level 3.4 3.5-5.1 mmol/L Chloride Level 110 98-107 mmol/L Carbon Dioxide Level 20 21-32 mmol/L Anion Gap 12.0 3-11 mmol/L Blood Urea Nitrogen 19 7-18 mg/dl Creatinine 1.50 0.60-1.20 mg/dl Est Creatinine Clear Calc Drug Dose 19.9 ml/min Estimated GFR () 35.4 Estimated GFR (Non- 30.6 BUN/Creatinine Ratio 12.9 10-20 Random Glucose 101 70-99 mg/dl Calcium Level 8.2 8.5-10.1 mg/dl
[2016-09-10] MEDS ORDERED: POTASSIUM CHLORIDE 10 MEQ TABCR PO ONE (12:45)
[2016-09-10 14:45] VITALS: BP 138/72; PULSE 88; TEMP 36.7; O2SAT 96
--- NOTE | 2016-09-10 18:14 | Progress Note ---
Subjective Date of Service: Sep 10, 2016. Subjective Pt evaluation today including: conversation w/ patient, chart review, lab review, conversation w/ method consultant Voiding: no voiding problems, incontinence (as per her baseline) Patient improving daily. Back pain is not gone but much better. She slept better last night on a special mattress. Bowels are less liquid. Her urine culture shows an extended spectrum klebsiella resistant to most antibiotics. She is now on Invanz. This will delay her discharge. She is disappointed to hear this. Eating solid food, enjoyed tender beef and mashed potatoes for dinner. No nausea no emesis. Her creatinine is improving daily. Problem List Medical Problems: (1) Hydronephrosis, left Status: Acute (2) Left ureteral calculus Status: Acute (3) Pneumonia involving left lung Status: Acute Review of Systems Constitutional: No chills, No fever Respiratory: No cough Cardiac: No chest pain, No orthopnea Abdomen: + diarrhea Female : + incontinence, + urinary frequency, No dysuria Endo: + fatigue Objective Vital Signs Date Time Temp Pulse Resp B/P Pulse Ox O2 Delivery O2 Flow Rate FiO2 09/10/16 16:10 Room Air 09/10/16 14:45 36.7 88 16 138/72 96 Room Air 09/10/16 08:00 Room Air 09/10/16 07:10 36.9 90 16 152/73 98 Room Air 09/10/16 00:00 Room Air 09/09/16 23:18 36.8 102 18 165/76 97 Room Air 09/09/16 20:00 Room Air Physical Exam General Appearance: WD/WN, no apparent distress ENT: hearing grossly normal Neurologic/Psychiatric: alert, normal mood/affect, oriented x 3 Laboratory Results Last 24 Hours Test 09/10/16 07:10 White Blood Count 11.26 K/uL Red Blood Count 3.43 M/uL Hemoglobin 10.3 g/dL Hematocrit 30.5 % Mean Corpuscular Volume 88.9 fL Mean Corpuscular Hemoglobin 30.0 pg Mean Corpuscular Hemoglobin Concent 33.8 g/dl Platelet Count 348 K/uL Mean Platelet Volume 8.5 fL Neutrophils (%) (Auto) 77.5 % Lymphocytes (%) (Auto) 14.9 % Monocytes (%) (Auto) 6.3 % Eosinophils (%) (Auto) 0.7 % Basophils (%) (Auto) 0.2 % Neutrophils # (Auto) 8.72 K/uL Lymphocytes # (Auto) 1.68 K/uL Monocytes # (Auto) 0.71 K/uL Eosinophils # (Auto) 0.08 K/uL Basophils # (Auto) 0.02 K/uL RDW Standard Deviation 44.8 fL RDW Coefficient of Variation 13.6 % Immature Granulocyte % (Auto) 0.4 % Immature Granulocyte # (Auto) 0.05 K/uL Sodium Level 142 mmol/L Potassium Level 3.4 mmol/L Chloride Level 110 mmol/L Carbon Dioxide Level 20 mmol/L Anion Gap 12.0 mmol/L Blood Urea Nitrogen 19 mg/dl Creatinine 1.50 mg/dl Est Creatinine Clear Calc Drug Dose 19.9 ml/min Estimated GFR () 35.4 Estimated GFR (Non- 30.6 BUN/Creatinine Ratio 12.9 Random Glucose 101 mg/dl Calcium Level 8.2 mg/dl Assessment and Plan uti highly resistant klebsiella invanz now being given. White count should improve then. I still favor a non operative approach as she is not clinically behaving like she has an obstructing stone. I suspect it may be a phlebolith next to the distal ureter rather than a stone in the ureter.
[2016-09-10] MEDS ORDERED: LEVOFLOXACIN 500MG / D5W IV SCH (20:00)
[2016-09-11] VITALS: BP 160/77; PULSE 91; TEMP 36.6; O2SAT 98
[2016-09-11] MEDS: SODIUM CHLORIDE 0.9% 1000ML 1,000 ML IV SCH ×2 (03:19→15:53)
[2016-09-11 07:26] VITALS: BP 134/70; PULSE 95; TEMP 36.5; O2SAT 98
[2016-09-11 07:56] LABS: BASO % 0.2 %; BASO ABS # 0.02 K/uL (0-0.2); COMPLETE YES; EOS % 1.3 %; IG% 0.7 %; LYMPH % 12.6 %; LYMPH ABS # 1.26 K/uL (1.2-3.4); MEAN CELL VOLUME 89.5 fL (80-100); MEAN CORPUSCULAR HGB CONC 33.6 g/dl (32-36); MEAN PLATELET VOLUME 8.8 fL (7.4-10.4); MONO % 5.7 %; NEUT % 79.5 %; PLATELET COUNT 366 K/uL (130-400); RED BLOOD COUNT 3.13 M/uL (4.2-5.4); WHITE BLOOD COUNT 10.01 K/uL (4.8-10.8)
[2016-09-11] MEDS: CEROVITE ADV FORMULA TAB PO SCH (07:58)
[2016-09-11] MEDS: PANTOprazole SOD 40 MG TAB PO SCH (07:58)
[2016-09-11] MEDS: TAMSULOSIN HCL 0.4 MG CAP PO SCH (07:58)
[2016-09-11 08:21] LABS: BUN/CREATININE RATIO 13.1 (10-20); CREATININE 1.4 mg/dl (0.60-1.20); POTASSIUM 3.9 mmol/L (3.5-5.1)
[2016-09-11 08:53] LABS: CALCIUM 7.9 mg/dl (8.5-10.1)
[2016-09-11] MEDS: ERTAPENEM IV 500 MG in SODIUM CHLORIDE 0.9% 50 ML IV SCH (10:21)
--- NOTE | 2016-09-11 11:48 | Progress Note ---
Internal Med Progress Note Date of Service: Sep 11, 2016. Provider Documentation: SUBJECTIVE: Patient is doing better. Left flank pain has improved. No nausea, vomiting, fever, abdominal pain, chills since in hospital. Tolerating diet well OBJECTIVE: Vital Signs-as noted below Exam: General-AAOX3, no distress Neck-Supple, NO JVD Lungs-AEBE, no wheezing Heart-S1, S2 normal, no murmurs Abdomen-Soft, non tender, non distended, BS present, Left flank tenderness + Extremities-No edema Lab data as noted below. ASSESSMENT & PLAN: ASSESSMENT AND PLAN: COMPLICATED UTI (ESBL KLEBSIELLA): Improving clinically CT scan shows ?? 5 mm stone in left ureteral calculus, but per urology likely phlebolith -Afebrile here, leucocytosis trending down -S/P IV Rocephin (Day 1) --> Changed to IV Invanz for ESBL- Klebsiella -IV Fluids- ok to discontinue as tolerating PO well and holding home diuretics. -CT abd/pelvis- 5 mm left distal ureter stone, left hydroureteronephrosis, small parenchymal infiltrate left base -Urine c/s - Klebsiella- Multi drug resistant -Will consult ID to help guide the rx /duration MANE ON CKD-III - Improving -Obstructive ? vs pre renal -IV Fluids -Hold home MADISYN-1 -Monitor QUESTIONABLE LEFT URETERAL CALCULUS (5 MM) WITH LEFT HYDROURETERONEPHROSIS - -Per ct scan, but per urology- less likely to be stone, but mostly phlebolith -IV Fluids-dc , Flomax trial -Per urology plan is for IV antibiotics, conservative approach. If worsens, may consider stent but for now no intervention indicated -Appreciate inputs ABNORMAL CXR Shows left lower base infiltrate, however, clinically has no signs of pneumonia - No cough, fever, chills, chest pain, hypoxia, SOB. HTN-Stable ANEMIA-Stable HX OF TOBACCO ABUSE DVT PROPHYLAXIS- SCDS DISPOSITION Home when stable Awaiting ID inputs on antibx/duration Full code. Vital Signs: Date Time Temp Pulse Resp B/P Pulse Ox O2 Delivery O2 Flow Rate FiO2 09/11/16 08:00 Room Air 09/11/16 07:26 36.5 95 16 134/70 98 09/11/16 00:00 36.6 91 18 160/77 98 Room Air 09/11/16 00:00 Room Air 09/10/16 16:10 Room Air 09/10/16 14:45 36.7 88 16 138/72 96 Room Air Lab Results: Results Past 24 Hours Test 09/11/16 07:03 Range/Units White Blood Count 10.01 4.8-10.8 K/uL Red Blood Count 3.13 4.2-5.4 M/uL Hemoglobin 9.4 12.0-16.0 g/dL Hematocrit 28.0 37-47 % Mean Corpuscular Volume 89.5 80-100 fL Mean Corpuscular Hemoglobin 30.0 25-34 pg Mean Corpuscular Hemoglobin Concent 33.6 32-36 g/dl Platelet Count 366 130-400 K/uL Mean Platelet Volume 8.8 7.4-10.4 fL Neutrophils (%) (Auto) 79.5 % Lymphocytes (%) (Auto) 12.6 % Monocytes (%) (Auto) 5.7 % Eosinophils (%) (Auto) 1.3 % Basophils (%) (Auto) 0.2 % Neutrophils # (Auto) 7.96 1.4-6.5 K/uL Lymphocytes # (Auto) 1.26 1.2-3.4 K/uL Monocytes # (Auto) 0.57 0.11-0.59 K/uL Eosinophils # (Auto) 0.13 0-0.5 K/uL Basophils # (Auto) 0.02 0-0.2 K/uL RDW Standard Deviation 45.7 36.4-46.3 fL RDW Coefficient of Variation 13.9 11.5-14.5 % Immature Granulocyte % (Auto) 0.7 % Immature Granulocyte # (Auto) 0.07 0.00-0.02 K/uL Sodium Level 144 136-145 mmol/L Potassium Level 3.9 3.5-5.1 mmol/L Chloride Level 114 98-107 mmol/L Carbon Dioxide Level 20 21-32 mmol/L Anion Gap 10.0 3-11 mmol/L Blood Urea Nitrogen 18 7-18 mg/dl Creatinine 1.40 0.60-1.20 mg/dl Est Creatinine Clear Calc Drug Dose 21.3 ml/min Estimated GFR () 38.5 Estimated GFR (Non- 33.2 BUN/Creatinine Ratio 13.1 10-20 Random Glucose 115 70-99 mg/dl Calcium Level 7.9 8.5-10.1 mg/dl
[2016-09-11 15:21] VITALS: BP 148/76; PULSE 77; TEMP 36.8; O2SAT 96
[2016-09-11 23:39] VITALS: BP 165/79; PULSE 84; TEMP 36.5; O2SAT 98
[2016-09-12] MEDS: SODIUM CHLORIDE 0.9% 1000ML 1,000 ML IV SCH (06:03)
[2016-09-12 06:18] LABS: BASO % 0.3 %; BASO ABS # 0.03 K/uL (0-0.2); COMPLETE YES; EOS % 1.3 %; HEMATOCRIT 27.7 % (37-47); IG% 0.7 %; LYMPH % 12.9 %; LYMPH ABS # 1.29 K/uL (1.2-3.4); MEAN CELL VOLUME 89.9 fL (80-100); MEAN CORPUSCULAR HEMOGLOBIN 29.2 pg (25-34); MEAN CORPUSCULAR HGB CONC 32.5 g/dl (32-36); MEAN PLATELET VOLUME 8.5 fL (7.4-10.4); MONO % 5.4 %; NEUT % 79.4 %; PLATELET COUNT 388 K/uL (130-400); RED BLOOD COUNT 3.08 M/uL (4.2-5.4); WHITE BLOOD COUNT 9.99 K/uL (4.8-10.8)
[2016-09-12 06:46] LABS: BUN/CREATININE RATIO 11.5 (10-20); CALCIUM 7.5 mg/dl (8.5-10.1); CREATININE 1.2 mg/dl (0.60-1.20); POTASSIUM 3.7 mmol/L (3.5-5.1)
[2016-09-12 07:30] VITALS: BP 163/79; PULSE 77; TEMP 36.7; O2SAT 96
[2016-09-12] MEDS: CEROVITE ADV FORMULA TAB PO SCH (07:39)
[2016-09-12] MEDS: TAMSULOSIN HCL 0.4 MG CAP PO SCH (07:39)
[2016-09-12] MEDS: PANTOprazole SOD 40 MG TAB PO SCH (07:39)
[2016-09-12] MEDS: ERTAPENEM IV 500 MG in SODIUM CHLORIDE 0.9% 50 ML IV SCH (10:33)
--- NOTE | 2016-09-12 10:57 | Progress Note ---
Internal Med Progress Note Date of Service: Sep 12, 2016. Provider Documentation: SUBJECTIVE: Patient is doing better and eager to be discharged. Left flank pain has almost resolved. No nausea, vomiting, fever, abdominal pain, chills since in hospital. Tolerating diet well. Had a PICC line placed yesterday OBJECTIVE: Vital Signs-as noted below Exam: General-AAOX3, no distress Neck-Supple, NO JVD Lungs-AEBE, no wheezing Heart-S1, S2 normal, no murmurs Abdomen-Soft, non tender, non distended, BS present, Left flank tenderness + Extremities-No edema; Right Upper Extremity- PICC line placed Lab data as noted below. ASSESSMENT & PLAN: ASSESSMENT AND PLAN: COMPLICATED UTI (ESBL KLEBSIELLA): Improved clinically CT scan shows ?? 5 mm stone in left ureteral calculus, but per urology likely phlebolith -Afebrile here, leucocytosis resolved -S/P IV Rocephin (Day 1) --> Changed to IV Invanz for ESBL- Klebsiella ( Day 3 7 today) -IV Fluids- discontinued today -CT abd/pelvis- 5 mm left distal ureter stone, left hydroureteronephrosis, small parenchymal infiltrate left base -Urine c/s - Klebsiella- Multi drug resistant -Discussed with ID over phone - for ESBL Klebsiella --> will give IV Invanz for 7 days PLAN: PICC line placed on 09/11/16. Will complete course of IV Invanz for 7 days for ESBL Klebsiella, UTI (TILL 09/16/16) MANE ON CKD-III - Resolved -Obstructive ? vs pre renal -IV Fluids- discontinued -Held home MADISYN-1--> Ok to restart it as BP going up and creatinine stabilized. -Monitor outpatient QUESTIONABLE LEFT URETERAL CALCULUS (5 MM) WITH LEFT HYDROURETERONEPHROSIS - -Per ct scan, but per urology- less likely to be stone, but mostly phlebolith -IV Fluids-dc , Flomax trial -Per urology plan is for IV antibiotics, conservative approach. If worsens, may consider stent but for now no intervention indicated -Appreciate inputs ABNORMAL CXR Shows left lower base infiltrate, however, clinically has no signs of pneumonia - No cough, fever, chills, chest pain, hypoxia, SOB. HTN-Stable ANEMIA-Stable HX OF TOBACCO ABUSE DVT PROPHYLAXIS- SCDS FULL CODE DISPOSITION OK to discharge home today with IV Invanz arrangements to be made by CM. Eager to be discharged Vital Signs: Date Time Temp Pulse Resp B/P Pulse Ox O2 Delivery O2 Flow Rate FiO2 09/12/16 08:00 Room Air 09/12/16 07:30 36.7 77 18 163/79 96 Room Air 09/12/16 00:00 Room Air 09/11/16 23:39 36.5 84 18 165/79 98 Room Air 09/11/16 16:20 Room Air 09/11/16 15:21 36.8 77 16 148/76 96 Room Air Lab Results: Results Past 24 Hours Test 09/12/16 05:35 Range/Units White Blood Count 9.99 4.8-10.8 K/uL Red Blood Count 3.08 4.2-5.4 M/uL Hemoglobin 9.0 12.0-16.0 g/dL Hematocrit 27.7 37-47 % Mean Corpuscular Volume 89.9 80-100 fL Mean Corpuscular Hemoglobin 29.2 25-34 pg Mean Corpuscular Hemoglobin Concent 32.5 32-36 g/dl Platelet Count 388 130-400 K/uL Mean Platelet Volume 8.5 7.4-10.4 fL Neutrophils (%) (Auto) 79.4 % Lymphocytes (%) (Auto) 12.9 % Monocytes (%) (Auto) 5.4 % Eosinophils (%) (Auto) 1.3 % Basophils (%) (Auto) 0.3 % Neutrophils # (Auto) 7.93 1.4-6.5 K/uL Lymphocytes # (Auto) 1.29 1.2-3.4 K/uL Monocytes # (Auto) 0.54 0.11-0.59 K/uL Eosinophils # (Auto) 0.13 0-0.5 K/uL Basophils # (Auto) 0.03 0-0.2 K/uL RDW Standard Deviation 45.9 36.4-46.3 fL RDW Coefficient of Variation 13.9 11.5-14.5 % Immature Granulocyte % (Auto) 0.7 % Immature Granulocyte # (Auto) 0.07 0.00-0.02 K/uL Sodium Level 145 136-145 mmol/L Potassium Level 3.7 3.5-5.1 mmol/L Chloride Level 115 98-107 mmol/L Carbon Dioxide Level 21 21-32 mmol/L Anion Gap 9.0 3-11 mmol/L Blood Urea Nitrogen 14 7-18 mg/dl Creatinine 1.20 0.60-1.20 mg/dl Est Creatinine Clear Calc Drug Dose 24.9 ml/min Estimated GFR () 46.4 Estimated GFR (Non- 40.0 BUN/Creatinine Ratio 11.5 10-20 Random Glucose 103 70-99 mg/dl Calcium Level 7.5 8.5-10.1 mg/dl
[2016-09-12] MEDS: LISINOPRIL 40 MG TAB PO SCH (11:55)
--- NOTE | 2016-09-12 11:55 | Progress Note ---
Subjective Date of Service: Sep 12, 2016. Subjective Pt evaluation today including: conversation w/ patient, chart review, lab review, conversation w/ fashion consultant sales Voiding: no voiding problems, incontinence feels well wants to go home. back pain is not at baseline for her arthritis. no fever on invanz day #3 Problem List Medical Problems: (1) Hydronephrosis, left Status: Acute (2) Left ureteral calculus Status: Acute (3) Pneumonia involving left lung Status: Acute Review of Systems Constitutional: + fatigue, No chills, No fever Female : + urinary frequency Objective Vital Signs Date Time Temp Pulse Resp B/P Pulse Ox O2 Delivery O2 Flow Rate FiO2 09/12/16 08:00 Room Air 09/12/16 07:30 36.7 77 18 163/79 96 Room Air 09/12/16 00:00 Room Air 09/11/16 23:39 36.5 84 18 165/79 98 Room Air 09/11/16 16:20 Room Air 09/11/16 15:21 36.8 77 16 148/76 96 Room Air Physical Exam General Appearance: WD/WN, no apparent distress Neurologic/Psychiatric: alert, normal mood/affect, oriented x 3 Laboratory Results Last 24 Hours Test 09/12/16 05:35 White Blood Count 9.99 K/uL Red Blood Count 3.08 M/uL Hemoglobin 9.0 g/dL Hematocrit 27.7 % Mean Corpuscular Volume 89.9 fL Mean Corpuscular Hemoglobin 29.2 pg Mean Corpuscular Hemoglobin Concent 32.5 g/dl Platelet Count 388 K/uL Mean Platelet Volume 8.5 fL Neutrophils (%) (Auto) 79.4 % Lymphocytes (%) (Auto) 12.9 % Monocytes (%) (Auto) 5.4 % Eosinophils (%) (Auto) 1.3 % Basophils (%) (Auto) 0.3 % Neutrophils # (Auto) 7.93 K/uL Lymphocytes # (Auto) 1.29 K/uL Monocytes # (Auto) 0.54 K/uL Eosinophils # (Auto) 0.13 K/uL Basophils # (Auto) 0.03 K/uL RDW Standard Deviation 45.9 fL RDW Coefficient of Variation 13.9 % Immature Granulocyte % (Auto) 0.7 % Immature Granulocyte # (Auto) 0.07 K/uL Sodium Level 145 mmol/L Potassium Level 3.7 mmol/L Chloride Level 115 mmol/L Carbon Dioxide Level 21 mmol/L Anion Gap 9.0 mmol/L Blood Urea Nitrogen 14 mg/dl Creatinine 1.20 mg/dl Est Creatinine Clear Calc Drug Dose 24.9 ml/min Estimated GFR () 46.4 Estimated GFR (Non- 40.0 BUN/Creatinine Ratio 11.5 Random Glucose 103 mg/dl Calcium Level 7.5 mg/dl Assessment and Plan uti highly resistant klebsiella (ESBL) invanz now being given. White count improved. I still favor a non operative approach as she is not clinically behaving like she has an obstructing stone. I suspect it may be a phlebolith next to the distal ureter rather than a stone in the ureter. I will see her in 3 weeks at [facility].
[2016-09-12 15:31] VITALS: BP 169/78; PULSE 91; TEMP 36.6; O2SAT 96
[2016-09-12 23:10] VITALS: BP 167/77; PULSE 90; TEMP 36.6; O2SAT 96
[2016-09-13 07:16] VITALS: BP 171/87; PULSE 91; TEMP 36.7; O2SAT 97
[2016-09-13] MEDS: LISINOPRIL 40 MG TAB PO SCH (08:08)
[2016-09-13] MEDS: TAMSULOSIN HCL 0.4 MG CAP PO SCH (08:08)
[2016-09-13] MEDS: CEROVITE ADV FORMULA TAB PO SCH (08:08)
[2016-09-13] MEDS: PANTOprazole SOD 40 MG TAB PO SCH (08:08)
[2016-09-13] MEDS: ERTAPENEM IV 500 MG in SODIUM CHLORIDE 0.9% 50 ML IV SCH (09:58)
--- NOTE | 2016-09-13 12:21 | Progress Note ---
Internal Med Progress Note Date of Service: Sep 13, 2016. Provider Documentation: SUBJECTIVE: Patient is doing better and eager to be discharged. Left flank pain has almost resolved. No nausea, vomiting, fever, abdominal pain, chills since in hospital. Tolerating diet well. Had a PICC line placed on 09/11/16 OBJECTIVE: Vital Signs-as noted below Exam: General-AAOX3, no distress Neck-Supple, NO JVD Lungs-AEBE, no wheezing Heart-S1, S2 normal, no murmurs Abdomen-Soft, non tender, non distended, BS present, Left flank tenderness + Extremities-No edema; Right Upper Extremity- PICC line placed Lab data as noted below. ASSESSMENT & PLAN: ASSESSMENT AND PLAN: COMPLICATED UTI (ESBL KLEBSIELLA): Improved clinically CT scan shows ?? 5 mm stone in left ureteral calculus, but per urology likely phlebolith -Afebrile here, leucocytosis resolved -S/P IV Rocephin (Day 1) --> Changed to IV Invanz for ESBL- Klebsiella ( Day 08/27 today) -S/P IVF -CT abd/pelvis- 5 mm left distal ureter stone, left hydroureteronephrosis, small parenchymal infiltrate left base -Urine c/s - Klebsiella- Multi drug resistant -Discussed with ID over phone - for ESBL Klebsiella --> will give IV Invanz for 7 days PLAN: PICC line placed on 09/11/16. Will complete course of IV Invanz for 7 days for ESBL Klebsiella, UTI (TILL 09/16/16). Ok to discontinue PICC line after that. Will go to [facility], [place] for daily dose of Invanz per instructions,. MANE ON CKD-III - Resolved -Obstructive ? vs pre renal -S/P IVF -On ACEI - restarted after holding it as creatinine stabilized -Monitor outpatient QUESTIONABLE LEFT URETERAL CALCULUS (5 MM) WITH LEFT HYDROURETERONEPHROSIS - -Per ct scan, but per urology- less likely to be stone, but mostly phlebolith -IV Fluids-dc , Flomax trial -Per urology plan is for IV antibiotics, conservative approach. If worsens, may consider stent but for now no intervention indicated. Will follow up outpatient -Appreciate inputs ABNORMAL CXR Shows left lower base infiltrate, however, clinically has no signs of pneumonia - No cough, fever, chills, chest pain, hypoxia, SOB. HTN-Stable ANEMIA-Stable HX OF TOBACCO ABUSE DVT PROPHYLAXIS- SCDS FULL CODE DISPOSITION OK to discharge home today with IV Invanz arrangements to be made by CM. Vital Signs: Date Time Temp Pulse Resp B/P Pulse Ox O2 Delivery O2 Flow Rate FiO2 09/13/16 08:00 Room Air 09/13/16 07:16 36.7 91 18 171/87 97 Room Air 09/12/16 23:30 Room Air 09/12/16 23:10 36.6 90 18 167/77 96 Room Air 09/12/16 16:20 Room Air 09/12/16 15:31 36.6 91 18 169/78 96 Room Air
[2016-09-13] MEDS ORDERED: ULT50X PO (12:22)
--- NOTE | 2016-09-13 12:25 | Discharge Summary ---
Discharge Summary Date of Service Sep 13, 2016. Discharge Summary Admission Date: Sep 08, 2016 at 20:21 Discharge Date: Sep 13, 2016 Discharge Disposition: Home Principal Diagnosis: 1. Complicated UTI (ESBL Klebsiella) 2. MANE 3. Hypokalemia Secondary Diagnoses/Problems: 1. HTN 2. Anemia 3. Hx of tobacco abuse Procedures: IV fluids IV Antibiotics CT abd/pelvis CXR Consultations: Urology, Dr Briggs Pending Studies/Follow-Up: . Instructions / Follow-Up Instructions / Follow-Up MEDICATION CHANGES: 1. IV Invanz 500 mg daily till 09/16/16 to complete course of 7 days of antibiotics for ESBL Klebsiella Complicated UTI. To be given through PICC line and okay to discontinue PICC line after the last dose of antibiotic FOLLOW UP 1. Follow up with Dr Johnson (PCP) on 09/14/16 at 3:25 PM 2. Follow up with Dr Briggs (Urology) in 3 weeks at [facility] Medication Reconciliation New Medications: Tramadol HCl (Tramadol HCl) 50 Mg Tab 25 MG PO Q6H PRN for Pain for 10 Days, #20 TAB Continued Medications: Aspirin (Aspirin Chewable) 81 Mg Chew 81 MG PO DAILY Furosemide (Lasix) 20 Mg Tab 20 MG PO DAILY, TAB Lisinopril (Zestril) 40 Mg Tab 40 MG PO DAILY, TAB Multiple Vitamins W/ Minerals (Centrum Silver Adult 50+) 1 Tab Tab 1 TAB PO DAILY Omeprazole (Prilosec) 20 Mg Capcr 20 MG PO DAILY, CAP Potassium Chloride (Klor-Con M20) 20 Meq Tabcr 20 MEQ PO DAILY Admission Information HPI (per Admitting provider): HISTORY OF PRESENT ILLNESS: Medical history significant for hypertension, past tobacco abuse, chronic renal insufficiency (baseline creatinine of 1.3-1.5), hx mixed urinary incontinence as per records. hx GERD, diverticulosis, colonic polyps, internal hemorrhoids, Hypothyroidism. Few days' history of achy left flank pain. No chest pain, no shortness of breath. Denies cough, aspiration. Fever 102 at home, chills. Diarrhea, which she has from time to time. non-bloody. No recent antibiotics. No known sick contacts. Patient seen at PCP's office. Blood pressure noted to be on the low side, 100s. Patient sent to the Emergency Room. Given Levaquin and Zosyn for possible UTI. Hospital Course ASSESSMENT AND PLAN: COMPLICATED UTI (ESBL KLEBSIELLA): Improved clinically CT scan shows ?? 5 mm stone in left ureteral calculus, but per urology likely phlebolith -Afebrile here, leucocytosis resolved -S/P IV Rocephin (Day 1) --> Changed to IV Invanz for ESBL- Klebsiella ( Day 4/ 7 today) -S/P IVF -CT abd/pelvis- 5 mm left distal ureter stone, left hydroureteronephrosis, small parenchymal infiltrate left base -Urine c/s - Klebsiella- Multi drug resistant -Discussed with ID over phone - for ESBL Klebsiella --> will give IV Invanz for 7 days PLAN: PICC line placed on 09/11/16. Will complete course of IV Invanz for 7 days for ESBL Klebsiella, UTI (TILL 09/16/16). Ok to discontinue PICC line after that. Will go to [facility], [place] for daily dose of Invanz per instructions,. MANE ON CKD-III - Resolved -Obstructive ? vs pre renal -S/P IVF -On ACEI - restarted after holding it as creatinine stabilized -Monitor outpatient QUESTIONABLE LEFT URETERAL CALCULUS (5 MM) WITH LEFT HYDROURETERONEPHROSIS - -Per ct scan, but per urology- less likely to be stone, but mostly phlebolith -IV Fluids-dc , Flomax trial -Per urology plan is for IV antibiotics, conservative approach. If worsens, may consider stent but for now no intervention indicated. Will follow up outpatient -Appreciate inputs ABNORMAL CXR Shows left lower base infiltrate, however, clinically has no signs of pneumonia - No cough, fever, chills, chest pain, hypoxia, SOB. -No issues noted throughout hospitalization HTN-Stable ANEMIA-Stable HX OF TOBACCO ABUSE DVT PROPHYLAXIS- SCDS FULL CODE DISPOSITION OK to discharge home today with IV Invanz arrangements to be made by CM. Total time spent on discharge = 32 MINUTES This includes examination of the patient, discharge planning, medication reconciliation, and communication with other providers. Discharge Instructions Activity Recommendations Activity Limitations: resume your previous activity (as tolerated prior to admission) . Instructions / Follow-Up Instructions / Follow-Up MEDICATION CHANGES: 1. IV Invanz 500 mg daily till 09/16/16 to complete course of 7 days of antibiotics for ESBL Klebsiella Complicated UTI. To be given through PICC line and okay to discontinue PICC line after the last dose of antibiotic FOLLOW UP 1. Follow up with Dr Johnson (PCP) on 09/14/16 at 3:25 PM 2. Follow up with Dr Briggs (Urology) in 3 weeks at [facility] Diet Patient's current hospital diet: Low Sodium Diet (2gm Na) Discharge Diet Recommended Diet: Low Sodium Diet (2gm Na) Pending Studies Studies pending at discharge: no Medical Emergencies . Who to Call and When: Medical Emergencies: If at any time you feel your situation is an emergency, please call 911 immediately. . Non-Emergent Contact Non-Emergency issues call your: Primary Care Provider, Urologist . . "Provider Documentation" section prepared by Veronica Quiñonez. . VTE Core Measure Inpt VTE Proph given/why not?: Karly Edgar, SCD's
[2016-09-13 12:43] VITALS: BP 171/87; PULSE 91; TEMP 36.7; O2SAT 97
[2016-10-20] MEDS ORDERED: CMD2 PO ×2 (13:24→13:46)
[2016-10-20] MEDS ORDERED: OXYGEN ×2 (13:24→13:43)
== END 2016-09-13 14:05 | disposition home or self-care (01) | DRG 689 ==
LOC: ENRESERVTM → CANRESERV → ENRESERVDT → EDBD 17:20 → C.EDB 17:20 → EDBD 20:21 → C.MS4W 20:21
PROVIDERS: ADMIT Internal Medicine; ATTEND Internal Medicine
PROC: 02HV33Z Insertion of Infusion Device into Superior Vena Cava, Percutaneous Approach (ICD-10-PCS; principal; 2016-09-12)
DX: N39.0 Urinary tract infection, site not specified (principal); J18.9 Pneumonia, unspecified organism; N13.1 Hydronephrosis with ureteral stricture, not elsewhere classified; I12.9 Hypertensive chronic kidney disease with stage 1 through stage 4 chronic kidney disease, or unspecified chronic kidney disease; K21.9 Gastro-esophageal reflux disease without esophagitis; E03.9 Hypothyroidism, unspecified; K58.9 Irritable bowel syndrome, unspecified; B96.1 Klebsiella pneumoniae [K. pneumoniae] as the cause of diseases classified elsewhere; E87.6 Hypokalemia; N18.3 Chronic kidney disease, stage 3 (moderate); D64.9 Anemia, unspecified; Z87.448 Personal history of other diseases of urinary system; Z87.891 Personal history of nicotine dependence

== ENCOUNTER 2016-10-14 15:38 | Inpatient (IN) | payer OTHER ==
[~2016-10-14] VITALS: Ht 149.9 cm; Wt 58.4 kg
[~2016-10-14 15:38] MED LIST: ASPCH81X PO; FURO-85 PO; LISI40TA PO; MCRK20 PO; MULT-845 PO; PRLSR20 PO; ULT50X PO
[2016-10-14 18:40] VITALS: BP 102/71; PULSE 105; TEMP 36.7; O2SAT 94; Ht 149.9 cm; Wt 58.4 kg
[2016-10-14] MEDS ORDERED: ACETAMINOPHEN 325 MG TAB PO PRN (18:45)
[2016-10-14 19:21] LABS: BASO % 0.4 %; BASO ABS # 0.05 K/uL (0-0.2); COMPLETE YES; EOS % 0.4 %; HEMATOCRIT 32.3 % (37-47); IG% 0.4 %; LYMPH % 22.9 %; LYMPH ABS # 3.06 K/uL (1.2-3.4); MEAN CELL VOLUME 89.7 fL (80-100); MEAN CORPUSCULAR HEMOGLOBIN 29.2 pg (25-34); MEAN CORPUSCULAR HGB CONC 32.5 g/dl (32-36); MEAN PLATELET VOLUME 9.4 fL (7.4-10.4); MONO % 6.1 %; NEUT % 69.8 %; PLATELET COUNT 262 K/uL (130-400); WHITE BLOOD COUNT 13.36 K/uL (4.8-10.8)
[2016-10-14 19:38] LABS: BUN/CREATININE RATIO 15.2 (10-20); CALCIUM 8.1 mg/dl (8.5-10.1); CREATININE 2.1 mg/dl (0.60-1.20)
[2016-10-14 19:52] LABS: INR 1.2 (0.9-1.1); PARTIAL THROMBOPLASTIN RATIO 1.9; PROTHROMBIN TIME (PATIENT) 12.4 SECONDS (9.0-12.0)
[2016-10-14 19:57] VITALS: BP 114/75; PULSE 104; TEMP 36.6; O2SAT 93
[2016-10-14] MEDS: HEPARIN 25,000 UNIT/500ML D5W 500 ML IV PRN (20:13)
[2016-10-14] MEDS ORDERED: IMIPENEM/CILASTATIN CONSULT ACTIVE PRN (20:20)
[2016-10-14] MEDS: SODIUM CHLORIDE 0.9% 1000ML 1,000 ML IV SCH (20:43)
[2016-10-14] MEDS: IMIPENEM/CILASTATIN IV 500 MG in D5W 100ML IV SCH (21:00)
--- NOTE | 2016-10-14 22:06 | HISTORY & PHYSICAL EXAMINATION ---
DATE OF ADMISSION: 10/14/2016 TIME: 08:24 p.m. The patient follows with Dr. Almazan for primary care. HISTORY OF PRESENT ILLNESS: The patient is an 89-year-old female with a history of hypertension, CKD stage 4 and anemia presenting from [facility] for transfer per family request. The patient was recently admitted to [facility] on last September 08 for urinary tract infection caused by ESBL Klebsiella and the patient completed 7 days of IV Invanz as an outpatient. The patient was apparently doing fine after that except for about a week and half ago when she started to have dizziness and shortness of breath with minimal exertion. Per [place] report, there are episodes of "passing out," but per the patient she has never passed out. She denies having any fever, chills, cough, sputum production, abdominal pain and changes with urination, but does report some diarrhea after taking the IV antibiotics. She then presented to the ER from [facility] yesterday for further evaluation and management. The patient's initial lab tests did show that the patient was meeting SIRS criteria with elevation of lactic acid to 5. For this, urine and blood cultures were obtained and the patient was started on meropenem and Flagyl for C. difficile. Also, her D-dimer was elevated at 15 and apparently the VQ scan reports are pending right now did reveal PE and echocardiogram also did revealed some RV dilatation and hence the patient was started on heparin over there. Also, BNP was elevated at 78,000 although chest x-ray was clear. The patient was given IV Lasix. Her creatinine on admission was 1.8 and today is 2.1. CT of the head over there also did reveal a lytic lesion 2 cm anterior on left frontal bone. The patient has been transferred to [facility] for further evaluation and management per family request. On my exam, the patient is resting in bed, comfortable, smiling, pleasant, awake, alert and oriented x3. She is on 2 liters nasal cannula. She says that she feels fine when she is resting. She is conversant and answered all questions. She denies active shortness of breath, chest pain, headache, nausea, vomiting, abdominal pain and changes with urination. The patient had 2 bowel movements today which was soft. No other symptoms were noted. PAST MEDICAL HISTORY: As per above; hypertension, anemia, CKD stage 4, mixed urinary incontinence, GERD, diverticulosis, colonic polyps, internal hemorrhoids, hypothyroidism and past tobacco use. MEDICATIONS: Include; lisinopril, Lasix, omeprazole, potassium, multivitamins. ALLERGIES: TO CODEINE AND NSAIDS. FAMILY HISTORY: Heart disease and liver cancer. No clotting disorders. PERSONAL AND SOCIAL HISTORY: Past tobacco use. No chronic intake of alcoholic beverages. Retired from factory work. REVIEW OF SYSTEMS: All 10 systems were reviewed and negative except for the ones mentioned above. PHYSICAL EXAMINATION: VITAL SIGNS: Blood pressure is 102/71 pulse rate of 105, respiratory rate of 14, temperature 36.7 and saturating 94% on room air. GENERAL: The patient is awake, alert, oriented x3, not in distress, speaks in sentences. No accessory muscle use. HEAD AND NECK: Atraumatic and normocephalic. Normal pupils. Full EOMs. No icterus. [place] conjunctivae. ENT: Dry oral mucosa. NECK: No JVD, no lymphadenopathy, no thyromegaly. HEART: Normal rate. Regular rhythm with S1, S2. No murmurs. LUNGS: Clear breath sounds bilaterally. No rales or wheezes. ABDOMEN: Nondistended, normal bowel sounds, soft, nontender. EXTREMITIES: No bipedal edema noted. No rashes. NEUROLOGIC: No gross focal motor or sensory deficits. LABORATORIES: White count 13, hemoglobin 10.5 and platelet count is 262. Sodium 142 potassium 5.0, chloride is 113, carbon dioxide 18, anion gap 12, BUN is 32, creatinine is 2.1. Lactic acid 3.0, calcium 8.1. INR is 1.2, PTT 49.6. Blood cultures and C. diff is pending. ASSESSMENT AND PLAN: This is a very pleasant 89-year-old female, with a history of hypertension, anemia and chronic kidney disease stage 4, recent admission last month in [facility] for urinary tract infection extended-spectrum beta-lactamase Klebsiella presenting with dizziness and shortness of breath from [facility]. 1. High probability of pulmonary embolism. As per hospitalist signing out the case to our PA, Eva Britt the patient has VQ scan report, we will obtain formal documentation of that report. Also a lower extremity Doppler has been performed over there and is negative for deep vein thrombosis. Currently the patient is on heparin standard with no bolus here at the hospital. A repeat echo will be performed secondary to poor acoustic window we will repeat that here. Also, hypercoagulable workup will be performed, but partial because the patient already had heparin. this seems to be a provoked pulmonary embolism because of the patient's emergent hospitalization last month; but interestingly, the patient has a lytic lesion at the left frontal bone in her skull, 2 cm and may need workup for multiple myeloma or underlying malignancy as a risk factor for her pulmonary embolism. 2. Systemic inflammatory response syndrome with elevation of lactic acid. The patient currently does not exhibit any clear focus of infection. Her blood culture and urine culture are pending from [facility]. Also, blood cultures have been repeated here as well as Clostridium difficile. A initial chest x-ray in outside hospital is negative for acute process and also CT abdomen and pelvis did not reveal any focus of infection. For the meantime, we will cover her with imipenem given her history of extended-spectrum beta-lactamase Klebsiella last month and also follow up Clostridium difficile report. 3. Acute renal failure on chronic kidney disease stage 4, likely prerenal from poor oral intake of Lasix and diarrhea. Baseline creatinine from last month is 1.2, now it is 2.1. We will give IV fluids. The patient does not exhibit any signs of fluid overload. Hold Lasix. Hold lisinopril. Monitor creatinine daily. 4. Elevated BNP with clear chest x-ray. We will repeat an echocardiogram to rule out underlying chronic heart failure. Currently the patient appears to be dehydrated and will be given gentle IV fluids. 5. Lytic lesions; left frontal bone lytic lesion seen on CT Head at [facility] 2 cm,may need multiple myeloma or underlying malignancy workup. 6. History of hypertension. Blood pressure is marginal right now. Hold lisinopril. 7. History of anemia, hemoglobin is stable. 8. History of smoking. 9. History of incontinence. 10. Deep venous thrombosis prophylaxis, on heparin drip. 11. Code status; full code per patient. 12. Disposition: Pending. Lives at home with her daughter, needs rehabilitation, needs to establish with Coumadin clinic. 13. Follows with Dr. Almazan for primary care. [facility] HOSPITALCecilia
[2016-10-15] VITALS (11 sets, daily range): BP systolic 90–113; BP diastolic 59–75; PULSE 97–104; TEMP 36.4–37.1; O2SAT 92–96
[2016-10-15 02:32] LABS: PARTIAL THROMBOPLASTIN RATIO 2.4
[2016-10-15] MEDS: IMIPENEM/CILASTATIN IV 500 MG in D5W 100ML IV SCH (04:22)
[2016-10-15 04:37] LABS: BASO % 0.3 %; BASO ABS # 0.03 K/uL (0-0.2); COMPLETE YES; EOS % 0.5 %; HEMATOCRIT 30.4 % (37-47); IG% 0.4 %; LYMPH % 20.6 %; LYMPH ABS # 2.11 K/uL (1.2-3.4); MEAN CELL VOLUME 88.9 fL (80-100); MEAN CORPUSCULAR HEMOGLOBIN 28.1 pg (25-34); MEAN CORPUSCULAR HGB CONC 31.6 g/dl (32-36); MEAN PLATELET VOLUME 9.1 fL (7.4-10.4); MONO % 5.7 %; NEUT % 72.5 %; PLATELET COUNT 235 K/uL (130-400); RED BLOOD COUNT 3.42 M/uL (4.2-5.4); WHITE BLOOD COUNT 10.22 K/uL (4.8-10.8)
[2016-10-15 04:56] LABS: BUN/CREATININE RATIO 16.9 (10-20); CALCIUM 7.2 mg/dl (8.5-10.1)
[2016-10-15 04:58] LABS: INR 1.3 (0.9-1.1); PARTIAL THROMBOPLASTIN RATIO 2.6; PROTHROMBIN TIME (PATIENT) 13.5 SECONDS (9.0-12.0)
[2016-10-15] MEDS: PANTOprazole SOD 40 MG TAB PO SCH (08:34)
[2016-10-15] MEDS: ONDANSETRON INJ 2 MG/ML 2 ML VIAL IV PRN (08:34)
--- NOTE | 2016-10-15 08:50 | ECHOCARDIOGRAM REPORT ---
*NOTICE TO RECEIVING REPUBLICAN AGENCY This information is strictly Confidential and protected under [place] law. [place] law prohibits you from making any further disclosure of this information unless further disclosure is expressly permitted by the written consent of the person to whom it pertains or is authorized by law. A general authorization for the release of medical or other information is not sufficient for this purpose. Hospital accepts no responsibility if the information is made available to any other person, INCLUDING THE PATIENT. Interpretation Summary * Name: Melva CALDERÓN Study Date: 10/15/2016 06:57 AM BP: 98/66 mmHg * Patient Location: C.2T\S\S229\S\2 HR: 99 * : 1925 (M/d/y) Gender: Female Height: 59 in * Age: 89 yrs Ethnicity: [place] Weight: 129 lb * Ordering Physician: Rian Toth * Referring Physician: Self, Referred * Performed By: Jailene Julio RDCS * * Reason For Study: Pulmonary embolism * BSA: 1.5 m2 * -- Conclusions -- * Small, underfilled, LV chamber with mild concentric LVH. * Hyperdynamic LV systolic function, EF >70%. * No segmental left ventricular wall motion abnormalities are noted. * Grade I diastolic dysfunction. * The right ventricle is moderately dilated. * The right ventricular systolic function is reduced as assessed by tricuspid annular plane systolic excursion (TAPSE) (TAPSE <1.6 cm). * Lateral wall akinesis with normal apical wall motion consistent with pulmonary embolism (aka Salinas's sign). * Mild right atrial dilation. * Aortic valve sclerosis mild, without significant aortic valvular stenosis. * Mild tricuspid regurgitation. * Small, loculated apical pericardial effusion. Procedure Details * A complete two-dimensional transthoracic echocardiogram was performed (2D, M-mode, Doppler and color flow Doppler). * The study was technically difficult. * There were technical limitations due to patient'spoor positioning * Definity not utilized due to patient's inability to tollerate extending the study duration. Left Ventricle * The left ventricular cavity is small. * There is mild concentric left ventricular hypertrophy. * The left ventricle is hyperdynamic. * Ejection Fraction = >70 %. * No segmental left ventricular wall motion abnormalities are noted. * The left ventricular wall motion is normal. Right Ventricle * The right ventricle is moderately dilated. * The right ventricular systolic function is reduced as assessed by tricuspid annular plane systolic excursion (TAPSE) (TAPSE <1.6 cm). Atria * The left atrial size is normal. * The right atrium is mildly dilated. * No ASD detected; PFO is not assessed. Mitral Valve * The mitral valve is normal in structure and function. Tricuspid Valve * The tricuspid valve anatomy is normal. * There is no tricuspid stenosis. * There is mild tricuspid regurgitation. Aortic Valve * The aortic valve is trileaflet. * Aortic valve sclerosis mild, without significant aortic valvular stenosis. * There is no significant aortic regurgitation. Pulmonic Valve * The pulmonary valve is not well seen, but the Doppler examination is normal without significant regurgitation or stenosis. Great Vessels * The aortic root is normal size. Pericardium/Pleural * Small pericardial effusion. * A loculated pericardial effusion is noted. Right Ventricle * Lateral wall akinesis with normal apical wall motion consistent with pulmonary embolism (aka Salinas's sign). Left Ventricular Diastolic Function * Grade I diastolic dysfunction, (abnormal relaxation pattern). MMode 2D Measurements and Calculations IVSd 1.2 cm LVIDd 2.7 cm LVIDs 1.7 cm LVPWd 1.4 cm IVS/LVPW 0.84 FS 35.9 % EDV(Teich) 27.6 ml ESV(Teich) 9.0 ml EF(Teich) 67.4 % EDV(cubed) 20.2 ml ESV(cubed) 5.3 ml EF(cubed) 73.6 % LV mass(C)d 112.0 grams LV mass(C)dI 73.2 grams/m\S\2 SV(Teich) 18.6 ml SI(Teich) 12.1 ml/m\S\2 SV(cubed) 14.8 ml SI(cubed) 9.7 ml/m\S\2 Ao root diam 3.0 cm Ao root area 6.9 cm\S\2 LA dimension 2.3 cm asc Aorta Diam 2.6 cm LA/Ao 0.78 LVOT diam 1.8 cm LVOT area 2.6 cm\S\2 Doppler Measurements and Calculations MV E max jose 51.8 cm/sec MV A max jose 91.7 cm/sec MV E/A 0.56 MV dec time 0.27 sec Ao V2 max 115.6 cm/sec Ao max PG 5.3 mmHg Ao max PG (full) 3.6 mmHg PINKY(V,A) 1.5 cm\S\2 PINKY(V,D) 1.5 cm\S\2 LV V1 max PG 1.8 mmHg LV V1 max 66.9 cm/sec PA V2 max 43.7 cm/sec PA max PG 0.76 mmHg PA acc slope 636.7 cm/sec\S\2 PA acc time 0.07 sec TR max jose 207.7 cm/sec PA pr(Accel) 47.8 mmHg
--- NOTE | 2016-10-15 09:49 | Medical Consult ---
Consultation Date of Consultation: October 15, 2016. Attending Physician: Bertin Sheriff MD Reason for Consultation: ESBL UTI hx History of Present Illness Patient is an 89-year-old female who presented as a transfer from [facility] for concern of ESBL producing Klebsiella urinary tract infection. The patient had previously been diagnosed with Klebsiella UTI in August at which time she was noted to have sensitivity to amikacin, ertapenem, imipenem, Levaquin, and Zosyn only. Unasyn had intermediate sensitivity. Upon current admission, the patient had noticed increasing shortness of breath for approximately 1-2 weeks. She states that she had also been very dizzy at home and had episodes where she fell like she was going to pass out. She had not been experience in any urinary symptoms, fever, sweats, chills, or abdominal pain. She states that she has had some nausea since admission to the hospital, but attributes this to antibiotic therapy. Since her admission, the patient's white blood cell count was 13.36 on admission. Her lactic acid was 3.0. Her creatinine was 2.10. Blood cultures are pending. C diff toxin is pending. No new imaging studies have been completed. The patient did have an echocardiogram that showed probable pulmonary embolism. The patient was placed on IV imipenem for concerns of recurrent urinary tract infection. No urinalysis or urine culture has been completed at this time. Past Medical/Surgical History Medical Problems: (1) Hydronephrosis, left Status: Acute (2) Left ureteral calculus Status: Acute (3) Pneumonia involving left lung Status: Acute Medical Problems: (1) Acid reflux (2) Complicated UTI (urinary tract infection) (3) HTN (hypertension) (4) Pulmonary embolism (5) Sepsis Surgical Problems: (1) History of hysterectomy Family History Noncontributory Social History Smoking Status: Never Smoker Marital Status: Occupation Status: retired Allergies Coded Allergies: Aspirin (Unverified Allergy, Unknown, unknown, 09/08/16) Codeine (Unverified Allergy, Unknown, unknown, 09/08/16) Home Medications Reported Home Medications Medications Dose Route/Sig Max Daily Dose Days Date Category Tramadol HCl 50 Mg Tab 25 Mg PO Q6H PRN 10 09/13/16 Rx Aspirin Chewable (Aspirin) 81 Mg Chew 81 Mg PO DAILY 09/08/16 Reported Centrum Silver Adult 50+ (Multiple Vitamins W/ Minerals) 1 Tab Tab 1 Tab PO DAILY 09/08/16 Reported Klor-Con M20 (Potassium Chloride) 20 Meq Tabcr 20 Meq PO DAILY 09/08/16 Reported Lasix (Furosemide) 20 Mg Tab 20 Mg PO DAILY 09/08/16 Reported Zestril (Lisinopril) 40 Mg Tab 40 Mg PO DAILY 09/08/16 Reported Prilosec (Omeprazole) 20 Mg Capcr 20 Mg PO DAILY 09/08/16 Reported Current Inpatient Medications Current Inpatient Medications Medications (Trade) Dose Ordered Sig/Rissa Route Start Time Stop Time Status Last Admin Dose Admin Acetaminophen (Tylenol Tab) 650 mg Q4H PRN PO 10/14/16 18:45 11/13/16 18:44 Ondansetron HCl 4 mg 4 mg Q6H PRN IV 10/14/16 18:45 11/13/16 18:44 10/15/16 08:34 4 MG Heparin Sodium/ Dextrose (Heparin 25,000 Unit/500ml D5W) 500 ml @ 18 mls/hr Q24H PRN IV 10/14/16 19:45 11/13/16 19:44 10/14/16 20:13 18 MLS/HR Imipenem/ Cilastatin Sodium 1 ea 1 ea UD PRN N/A 10/14/16 20:20 11/13/16 20:19 Sodium Chloride (Nss 1000ml) 1,000 ml @ 75 mls/hr [id number] IV 10/14/16 20:15 11/13/16 20:14 10/14/16 20:43 75 MLS/HR Pantoprazole Sodium 40 mg 40 mg DAILY PO 10/15/16 09:00 11/14/16 08:59 10/15/16 08:34 40 MG Imipenem/ Cilastatin Sodium/ Dextrose (Primaxin Iv/D5 100ml) 110 ml @ 110 mls/hr Q8H IV 10/14/16 21:00 10/24/16 20:59 10/15/16 04:22 110 MLS/HR Review of Systems Constitutional: + sweats (at night recently), No chills, No fever Eyes: No worsening of vision ENT: No hearing loss Respiratory: + cough (chronic on and off-mild), + dyspnea on exertion, No sputum Cardiovascular: No chest pain Abdomen: + diarrhea (since started on abx), + nausea, No pain, No vomiting Musculoskeletal: No joint pain, No muscle pain Genitourinary - Female: + problem reported (catheter in place now) Neurologic: No numbness/tingling Integumentary: + new/changing skin lesions (sacral decubitus skin breakdown), No itch, No rash Physical Exam Date Time Temp Pulse Resp B/P Pulse Ox O2 Delivery O2 Flow Rate FiO2 10/15/16 07:45 36.7 99 18 105/71 92 Nasal Cannula 1.0 10/15/16 04:00 93 Nasal Cannula 2.0 10/15/16 03:24 36.4 99 20 98/66 93 Nasal Cannula 1.0 10/15/16 00:14 36.7 104 20 94/59 94 Nasal Cannula 2.0 10/15/16 00:01 94 Nasal Cannula 2.0 10/14/16 20:00 Nasal Cannula 2.0 10/14/16 19:57 36.6 104 16 114/75 93 Nasal Cannula 1.5 10/14/16 18:40 36.7 105 19 102/71 94 Room Air General Appearance: WD/WN, no apparent distress Head: normocephalic, atraumatic Eyes: normal inspection, sclerae normal ENT: hearing grossly normal Neck: supple, trachea midline Respiratory/Chest: chest non-tender, lungs clear, no respiratory distress, no accessory muscle use, + decreased breath sounds (bases) Cardiovascular: + tachycardia Abdomen/GI: normal bowel sounds, soft, + tenderness (mild generalized) Extremities/Musculoskelatal: normal inspection, no pedal edema Neurologic/Psych: alert, normal mood/affect Skin: normal color, warm/dry, no rash Laboratory Results Item Value Date Time C.difficile Toxin B Gene (PCR) Ordered 10/14/162012 Stool Pending Blood Culture Received 10/14/161909 Blood Pending Blood Culture Received 10/14/16 190 Blood Pending Last 24 Hours Test 10/14/16 19:10 10/15/16 02:04 10/15/16 04:25 10/15/16 09:29 White Blood Count 13.36 K/uL 10.22 K/uL Red Blood Count 3.60 M/uL 3.42 M/uL Hemoglobin 10.5 g/dL 9.6 g/dL Hematocrit 32.3 % 30.4 % Mean Corpuscular Volume 89.7 fL 88.9 fL Mean Corpuscular Hemoglobin 29.2 pg 28.1 pg Mean Corpuscular Hemoglobin Concent 32.5 g/dl 31.6 g/dl Platelet Count 262 K/uL 235 K/uL Mean Platelet Volume 9.4 fL 9.1 fL Neutrophils (%) (Auto) 69.8 % 72.5 % Lymphocytes (%) (Auto) 22.9 % 20.6 % Monocytes (%) (Auto) 6.1 % 5.7 % Eosinophils (%) (Auto) 0.4 % 0.5 % Basophils (%) (Auto) 0.4 % 0.3 % Neutrophils # (Auto) 9.34 K/uL 7.41 K/uL Lymphocytes # (Auto) 3.06 K/uL 2.11 K/uL Monocytes # (Auto) 0.81 K/uL 0.58 K/uL Eosinophils # (Auto) 0.05 K/uL 0.05 K/uL Basophils # (Auto) 0.05 K/uL 0.03 K/uL RDW Standard Deviation 51.6 fL 51.0 fL RDW Coefficient of Variation 15.9 % 16.1 % Immature Granulocyte % (Auto) 0.4 % 0.4 % Immature Granulocyte # (Auto) 0.05 K/uL 0.04 K/uL Prothrombin Time 12.4 SECONDS 13.5 SECONDS Prothromb Time International Ratio 1.2 1.3 Activated Partial Thromboplast Time 49.6 SECONDS 63.0 SECONDS 67.9 SECONDS Partial Thromboplastin Ratio 1.9 2.4 2.6 Sodium Level 143 mmol/L 146 mmol/L Potassium Level 5.0 mmol/L 5.0 mmol/L Chloride Level 113 mmol/L 116 mmol/L Carbon Dioxide Level 18 mmol/L 18 mmol/L Anion Gap 12.0 mmol/L 12.0 mmol/L Blood Urea Nitrogen 32 mg/dl 34 mg/dl Creatinine 2.10 mg/dl 2.00 mg/dl Est Creatinine Clear Calc Drug Dose 14.2 ml/min 14.9 ml/min Estimated GFR () 23.6 25.0 Estimated GFR (Non- 20.4 21.6 BUN/Creatinine Ratio 15.2 16.9 Random Glucose 119 mg/dl 123 mg/dl Lactic Acid Level 3.0 mmol/L Calcium Level 8.1 mg/dl 7.2 mg/dl Assessment & Plan Patient with dyspnea on exertion and possible acute PE. She does have history of ESBL producing Klebsiella and is currently having diarrhea as well. No urine completed yet- will order UA and Urine C&S. C. Diff is pending. She is currently on IV Imipenem. Will narrow to IV Ertapenem but continue abx therapy pending VQ scan and urine studies. If her urinalysis/urine C & S are negative, can D/C abx therapy. She also would not let me roll her to look at her sacral area- asked nurse to update when able to view sacral skin breakdown. We will follow PROVIDER ADDENDUM: Patient examined and reviewed with Ms. Valentine. Agree with above assessment.
[2016-10-15] MEDS ORDERED: ERTAPENEM IV 1 GM in SODIUM CHLOR 0.9% AD-VAN 50ML 50 ML IV SCH (12:00)
[2016-10-15] MEDS ORDERED: RANITIDINE IV 50 MG in DEXTROSE 5% 100ML 100 ML IV ONE (12:30)
[2016-10-15] MEDS: SODIUM CHLORIDE 0.9% 1000ML 1,000 ML IV SCH (12:58)
[2016-10-15] MEDS ORDERED: [UNRECOGNIZED DRUG - OTHER] PRN (13:15)
--- NOTE | 2016-10-15 18:10 | Progress Note ---
Internal Med Progress Note Date of Service: October 15, 2016. Provider Documentation: SUBJECTIVE: patient says sob is going for a week now says minimal exertion causing sob saturating ok on 2lts denies chest pain no nausea afebrile hemodynamics stable currently OBJECTIVE: Vital Signs-as noted below Exam: General-alert and awake and oriented ENT-normal hearing Neck-no neck masses Lungs-cta b/l no wheezing or crackles Heart-s1 and s2 heard irregular no murmurs Abdomen-soft bowel sounds present non tender no distension Extremities- no edema no erythema Neuro-alert and awake moves extremities Lab data as noted below. ASSESSMENT & PLAN: High probability of PE on v/q scan at [facility] lower extremity Doppler negative echo done here consistent with PE sob for a week says sob on minimal exertion on iv heparin will consult pulmonary in am for any further recommendation as echo shows right ventricular strain currently hemodynamics stable Sepsis possible uti recently had esbl on iv Invanz lactic acid 3.o on presentation which is resolved now. 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 will f/u labs Lytic lesions left frontal lytic lesion on ct scan at [facility] needs workup Hx of anemia 'will f/u labs Hx of smoking advice for cessation Hx of incontinence DVT PROPHYLAXIS iv heparin DISPOSITION monitor in tele Vital Signs: Date Time Temp Pulse Resp B/P Pulse Ox O2 Delivery O2 Flow Rate FiO2 10/15/16 16:00 94 Nasal Cannula 2.0 10/15/16 16:00 36.9 98 20 113/75 94 Nasal Cannula 2.0 10/15/16 12:00 37.1 100 26 112/63 96 Nasal Cannula 2.0 10/15/16 12:00 96 Nasal Cannula 2.0 10/15/16 08:00 96 Nasal Cannula 2.0 10/15/16 07:45 36.7 99 18 105/71 92 Nasal Cannula 1.0 10/15/16 04:00 93 Nasal Cannula 2.0 10/15/16 03:24 36.4 99 20 98/66 93 Nasal Cannula 1.0 10/15/16 00:14 36.7 104 20 94/59 94 Nasal Cannula 2.0 10/15/16 00:01 94 Nasal Cannula 2.0 10/14/16 20:00 Nasal Cannula 2.0 10/14/16 19:57 36.6 104 16 114/75 93 Nasal Cannula 1.5 10/14/16 18:40 36.7 105 19 102/71 94 Room Air Lab Results: Results Past 24 Hours Test 10/14/16 19:10 10/15/16 02:04 10/15/16 04:25 10/15/16 09:29 Range/Units White Blood Count 13.36 10.22 4.8-10.8 K/uL Red Blood Count 3.60 3.42 4.2-5.4 M/uL Hemoglobin 10.5 9.6 12.0-16.0 g/dL Hematocrit 32.3 30.4 37-47 % Mean Corpuscular Volume 89.7 88.9 80-100 fL Mean Corpuscular Hemoglobin 29.2 28.1 25-34 pg Mean Corpuscular Hemoglobin Concent 32.5 31.6 32-36 g/dl Platelet Count 262 235 130-400 K/uL Mean Platelet Volume 9.4 9.1 7.4-10.4 fL Neutrophils (%) (Auto) 69.8 72.5 % Lymphocytes (%) (Auto) 22.9 20.6 % Monocytes (%) (Auto) 6.1 5.7 % Eosinophils (%) (Auto) 0.4 0.5 % Basophils (%) (Auto) 0.4 0.3 % Neutrophils # (Auto) 9.34 7.41 1.4-6.5 K/uL Lymphocytes # (Auto) 3.06 2.11 1.2-3.4 K/uL Monocytes # (Auto) 0.81 0.58 0.11-0.59 K/uL Eosinophils # (Auto) 0.05 0.05 0-0.5 K/uL Basophils # (Auto) 0.05 0.03 0-0.2 K/uL RDW Standard Deviation 51.6 51.0 36.4-46.3 fL RDW Coefficient of Variation 15.9 16.1 11.5-14.5 % Immature Granulocyte % (Auto) 0.4 0.4 % Immature Granulocyte # (Auto) 0.05 0.04 0.00-0.02 K/uL Prothrombin Time 12.4 13.5 9.0-12.0 SECONDS Prothromb Time International Ratio 1.2 1.3 0.9-1.1 Activated Partial Thromboplast Time 49.6 63.0 67.9 21.0-31.0 SECONDS Partial Thromboplastin Ratio 1.9 2.4 2.6 Sodium Level 143 146 136-145 mmol/L Potassium Level 5.0 5.0 3.5-5.1 mmol/L Chloride Level 113 116 98-107 mmol/L Carbon Dioxide Level 18 18 21-32 mmol/L Anion Gap 12.0 12.0 3-11 mmol/L Blood Urea Nitrogen 32 34 7-18 mg/dl Creatinine 2.10 2.00 0.60-1.20 mg/dl Est Creatinine Clear Calc Drug Dose 14.2 14.9 ml/min Estimated GFR () 23.6 25.0 Estimated GFR (Non- 20.4 21.6 BUN/Creatinine Ratio 15.2 16.9 10-20 Random Glucose 119 123 70-99 mg/dl Lactic Acid Level 3.0 0.4-2.0 mmol/L Calcium Level 8.1 7.2 8.5-10.1 mg/dl Test 10/15/16 10:57 Range/Units Lactic Acid Level 1.4 0.4-2.0 mmol/L Microbiology Results 10/14/16 Blood Culture, Received Pending 10/14/16 Blood Culture, Received Pending 10/15/16 Urine Culture, Ordered Pending
[2016-10-15 19:06] LABS: URINE APPEARANCE CLEAR (CLEAR); URINE BILIRUBIN NEG (NEG); URINE COLOR DK YELLOW; URINE EPITHELIAL CELL AUTO 20-30 /lpf (0-5); URINE NITRITE NEG (NEG); URINE SPECIFIC GRAVITY 1.027 (1.000-1.030); UROBILINOGEN NEG (NEG)
[2016-10-15 19:11] LABS: MANUAL MICROSCOPIC REQUIRED? NO; REVIEW REQ? YES
[2016-10-16] VITALS (8 sets, daily range): BP systolic 97–115; BP diastolic 57–68; PULSE 96–104; TEMP 36.6–36.7; O2SAT 90–94
[2016-10-16] MEDS: SODIUM CHLORIDE 0.9% 1000ML 1,000 ML IV SCH ×2 (01:20→14:24)
[2016-10-16 04:43] LABS: BASO % 0.4 %; BASO ABS # 0.04 K/uL (0-0.2); HEMATOCRIT 30.4 % (37-47); IG% 0.5 %; LYMPH % 19.6 %; MEAN CELL VOLUME 91.8 fL (80-100); MEAN CORPUSCULAR HEMOGLOBIN 29.6 pg (25-34); MEAN PLATELET VOLUME 9.3 fL (7.4-10.4); MONO % 8.2 %; NEUT % 70.3 %; PLATELET COUNT 247 K/uL (130-400); RED BLOOD COUNT 3.31 M/uL (4.2-5.4); WHITE BLOOD COUNT 10.23 K/uL (4.8-10.8)
[2016-10-16 05:01] LABS: BUN/CREATININE RATIO 18.2 (10-20); CALCIUM 7.4 mg/dl (8.5-10.1); CREATININE 1.9 mg/dl (0.60-1.20); POTASSIUM 4.6 mmol/L (3.5-5.1)
[2016-10-16 05:04] LABS: INR 1.3 (0.9-1.1); PARTIAL THROMBOPLASTIN RATIO 3.6; PROTHROMBIN TIME (PATIENT) 14.1 SECONDS (9.0-12.0)
[2016-10-16 05:09] LABS: COMPLETE YES; MEAN CORPUSCULAR HGB CONC 32.2 g/dl (32-36)
[2016-10-16] MEDS: ONDANSETRON INJ 2 MG/ML 2 ML VIAL IV PRN (05:17)
[2016-10-16] MEDS: HEPARIN 25,000 UNIT/500ML D5W 500 ML IV PRN (06:13)
[2016-10-16] MEDS: PANTOprazole SOD 40 MG TAB PO SCH (07:55)
[2016-10-16 10:59] LABS: ARTERIAL BLD GAS O2 SATURATION 90.7 % (90-95); ARTERIAL BLOOD GAS BASE EXCESS -9.6 mEq/L (-9-1.8); ARTERIAL BLOOD GAS HCO3 14 mmol/L (19-24); ARTERIAL BLOOD GAS PO2 68 mm/Hg (80-95); ARTERIAL BLOOD GAS pH 7.39 (7.35-7.45)
[2016-10-16 11:00] LABS: ALLEN TEST POS (POS); O2 ADMINISTRATION 3L
[2016-10-16] MEDS: ERTAPENEM IV 500 MG in SODIUM CHLORIDE 0.9% 50 ML IV SCH (11:28)
--- NOTE | 2016-10-16 12:29 | Pulmonary Consultation ---
History General Date of Service: October 16, 2016. Stated Complaint: Sepsis HPI The patient is a 89 year old female who presents to [facility] as a transfer from [facility], for further management of pulmonary embolism. I reviewed her records, prior admission, interviewed the patient. She had a recent admission at [facility] September 08- September 13 for UTI, was treated with Invanz. Also found to have left hydroureteronephrosis , there was a stone, but believed to be phlebolith and not causing the obstruction. She improved without any surgical management. On 10/11 she suddenly became short of breath, without cough, fever, chills, without chest pain or palpitations, but had near syncopal event. On 10/13 went to [facility], workup revealed no stroke but lytic skull lesions. VQ scan on 10/14 showed severe b/l ventilation perfusion mismatches, was started on heparin drip same day. An Echo showed RV dilation. he family requested transfer to our hospital Currently, she is comfortable, no shortness of breath, on 2 liters nasal cannula Denies weight loss, denies recent travel. On last admission, she was on SCDs for DVT prophylaxis, here concern about giving her heparin secondary to anemia Denies family history of blood clots or sudden . ABG at [place]: 7.44/21/96.5% on oxygen, flow unknown Initially, her lactic acid was 5.7, normalized later. A CT scan of the abdomen did not show hydronephrosis Blood cultures 10/13 - no growth x 2 Urine culture 10/13 - no growth Pro-BNP - 41321 Troponin - 0.031, 0.053, 0.051 Lower extremities venous Doppler - negative CT chest - subsegmental basilar atelectasis, no pneumonia Historian: patient Review of Systems Constitutional: reports: no symptoms Eyes: reports: no symptoms ENT: reports: no symptoms Cardiovascular: reports: no symptoms Respiratory: reports: HERNANDEZ, shortness of breath, denies: cough, hemoptysis, sputum production, wheezing Gastrointestinal: reports: no symptoms Genitourinary - Female: reports: no symptoms Musculoskeletal: reports: no symptoms Neurologic: reports: no symptoms Psychiatric: reports: no symptoms Hematologic / Lymphatic: no symptoms Past Medical History Past Medical History: hypertension, hypothyroidism, renal disease (CKD), other (UTI) Past Surgical History: appendectomy, cholecystectomy, hysterectomy, oophorectomy Social History Hx Tobacco Use In Past Year?: No Smoking Status: Former Smoker (Smoked for aprx 60 years, quit 10 years ago. States she was a "light" smoker) Alcohol: never Marital status: Housing status: lives with family Occupational Status: retired Allergies Coded Allergies: Aspirin (Unverified Allergy, Unknown, unknown, 09/08/16) Codeine (Unverified Allergy, Unknown, unknown, 09/08/16) Current Medications Reported Home Medications Medications Dose Route/Sig Max Daily Dose Days Date Category Tramadol HCl 50 Mg Tab 25 Mg PO Q6H PRN 10 09/13/16 Rx Aspirin Chewable (Aspirin) 81 Mg Chew 81 Mg PO DAILY 09/08/16 Reported Centrum Silver Adult 50+ (Multiple Vitamins W/ Minerals) 1 Tab Tab 1 Tab PO DAILY 09/08/16 Reported Klor-Con M20 (Potassium Chloride) 20 Meq Tabcr 20 Meq PO DAILY 09/08/16 Reported Lasix (Furosemide) 20 Mg Tab 20 Mg PO DAILY 09/08/16 Reported Zestril (Lisinopril) 40 Mg Tab 40 Mg PO DAILY 09/08/16 Reported Prilosec (Omeprazole) 20 Mg Capcr 20 Mg PO DAILY 09/08/16 Reported Physical Physical Exam Vital Signs: Date Time Temp Pulse Resp B/P Pulse Ox O2 Delivery O2 Flow Rate FiO2 10/16/16 08:00 Nasal Cannula 3.0 10/16/16 08:00 36.6 96 18 110/68 90 Nasal Cannula 3.0 10/16/16 04:44 36.6 96 18 102/60 91 Nasal Cannula 2.0 10/16/16 04:00 94 Nasal Cannula 2.0 10/15/16 23:59 94 Nasal Cannula 2.0 10/15/16 23:26 36.5 97 18 90/66 92 Nasal Cannula 2.0 10/15/16 20:00 94 Nasal Cannula 2.0 10/15/16 16:00 94 Nasal Cannula 2.0 10/15/16 16:00 36.9 98 20 113/75 94 Nasal Cannula 2.0 10/15/16 12:00 37.1 100 26 112/63 96 Nasal Cannula 2.0 10/15/16 12:00 96 Nasal Cannula 2.0 General Appearance: WELL-APPEARING, WD/WN, NO APPARENT DISTRESS Head: NORMOCEPHALIC, ATRAUMATIC Neck: NORMAL RANGE OF MOTION, NO TENDERNESS, TRACHEA MIDLINE, NO STRIDOR Respiratory: BREATH SOUNDS NORMAL, CLEAR TO AUSCULTATION, NO RESPIRATORY DISTRESS Cardiovasular: REGULAR RATE/RHYTHM, NORMAL S1S2, NO MURMUR Abdomen: NON TENDER, NO REBOUND Upper Extremities: NO EDEMA Lower Extremities: NO EDEMA Neuro: ALERT, ORIENTED x 3, NORMAL MOTOR EXAM Diagnostics Labs Results Past 24 Hours Test 10/15/16 18:15 10/16/16 04:24 10/16/16 10:46 Range/Units Urine Color DK YELLOW Urine Appearance CLEAR CLEAR Urine pH 5.0 4.5-7.5 Urine Specific [place] 1.027 1.000-1.030 Urine Protein 1+ NEG Urine Glucose (UA) NEG NEG Urine Ketones TRACE NEG Urine Occult Blood NEG NEG Urine Nitrite NEG NEG Urine Bilirubin NEG NEG Urine Urobilinogen NEG NEG Urine Leukocyte Esterase TRACE NEG Urine WBC (Auto) 10-30 0-5 /hpf Urine RBC (Auto) 0-4 0-4 /hpf Urine Hyaline Casts (Auto) 5-10 0-5 /lpf Urine Epithelial Cells (Auto) 20-30 0-5 /lpf Urine Bacteria (Auto) NEG NEG Urine Yeast (Auto) NONE PRSENT White Blood Count 10.23 4.8-10.8 K/uL Red Blood Count 3.31 4.2-5.4 M/uL Hemoglobin 9.8 12.0-16.0 g/dL Hematocrit 30.4 37-47 % Mean Corpuscular Volume 91.8 80-100 fL Mean Corpuscular Hemoglobin 29.6 25-34 pg Mean Corpuscular Hemoglobin Concent 32.2 32-36 g/dl Platelet Count 247 130-400 K/uL Mean Platelet Volume 9.3 7.4-10.4 fL Neutrophils (%) (Auto) 70.3 % Lymphocytes (%) (Auto) 19.6 % Monocytes (%) (Auto) 8.2 % Eosinophils (%) (Auto) 1.0 % Basophils (%) (Auto) 0.4 % Neutrophils # (Auto) 7.20 1.4-6.5 K/uL Lymphocytes # (Auto) 2.00 1.2-3.4 K/uL Monocytes # (Auto) 0.84 0.11-0.59 K/uL Eosinophils # (Auto) 0.10 0-0.5 K/uL Basophils # (Auto) 0.04 0-0.2 K/uL RDW Standard Deviation 53.4 36.4-46.3 fL RDW Coefficient of Variation 16.3 11.5-14.5 % Immature Granulocyte % (Auto) 0.5 % Immature Granulocyte # (Auto) 0.05 0.00-0.02 K/uL Nucleated RBC Absolute Count (auto) 0.08 0-0 K/uL Nucleated Red Blood Cells % 0.8 % Prothrombin Time 14.1 9.0-12.0 SECONDS Prothromb Time International Ratio 1.3 0.9-1.1 Activated Partial Thromboplast Time 92.4 21.0-31.0 SECONDS Partial Thromboplastin Ratio 3.6 Sodium Level 145 136-145 mmol/L Potassium Level 4.6 3.5-5.1 mmol/L Chloride Level 115 98-107 mmol/L Carbon Dioxide Level 19 21-32 mmol/L Anion Gap 11.0 3-11 mmol/L Blood Urea Nitrogen 35 7-18 mg/dl Creatinine 1.90 0.60-1.20 mg/dl Est Creatinine Clear Calc Drug Dose 15.6 ml/min Estimated GFR () 26.6 Estimated GFR (Non- 23.0 BUN/Creatinine Ratio 18.2 10-20 Random Glucose 105 70-99 mg/dl Calcium Level 7.4 8.5-10.1 mg/dl Arterial Blood pH 7.39 7.35-7.45 Arterial Blood Partial Pressure CO2 23 35-46 mmHg Arterial Blood Partial Pressure O2 68 80-95 mm/Hg Arterial Blood HCO3 14 19-24 mmol/L Arterial Blood Oxygen Saturation 90.7 90-95 % Arterial Blood Base Excess -9.6 -9-1.8 mEq/L Arterial Blood Gas Delivery 3L Jacinto Test POS POS Microbiology Results 10/15/16 Urine Culture, Received Pending Diagnostic Radiology VQ scan 10/14 (see scanned report) - 2 defects on the right and 2 defects on the left Echo 10/15 done here: * Small, underfilled, LV chamber with mild concentric LVH. * Hyperdynamic LV systolic function, EF >70%. * No segmental left ventricular wall motion abnormalities are noted. * Grade I diastolic dysfunction. * The right ventricle is moderately dilated. * The right ventricular systolic function is reduced as assessed by tricuspid annular plane systolic excursion (TAPSE) (TAPSE <1.6 cm). * Lateral wall akinesis with normal apical wall motion consistent with pulmonary embolism (aka Salinas's sign). * Mild right atrial dilation. * Aortic valve sclerosis mild, without significant aortic valvular stenosis. * Mild tricuspid regurgitation. * Small, loculated apical pericardial effusion. Impression Assessment and Plan This is a 89 year old female with recent admission for UTI with ESBL Klebsiella , CKD, now developed b/l pulmonary embolism. It is likley provoked, however, given CT brain appearance, there may be a neoplastic component leading to a hypercoagulable state Problems: Acute respiratory failure secondary to bilateral pulmonary embolism Right ventricular strain CKD Recent ESBL UTI Plan: Has been on heparin since 10/14. I agree to continue. I entertained the idea of thrombolysis of course, given elevated BNP, elevated troponin, near syncopal events. However, she is not profoundly hypoxic, she is 89 years old (over 65 years old the risk of bleeding triples according to some studies), has been treated for 2 days already, and she also has some concerning lytic lesions in her skull. I weighted all these arguments, and I believe that the risk of thrombolysis is not justified. May start oral anticoagulation in the form of Coumadin today. Once INR above 2, overlap with heparin for another 24 hours. Supplement O2 Some hypercoagulable workup ordered. Also recommend looking for multiple myeloma. No susupicion of cancer based on the current CT scans. Continue tele monitoring. Note Total Time (mins): 60
[2016-10-16 12:47] LABS: PARTIAL THROMBOPLASTIN RATIO 2.2
[2016-10-16] MEDS: WARFARIN SOD 5 MG TAB PO SCH (16:50)
--- NOTE | 2016-10-16 18:07 | Progress Note ---
Internal Med Progress Note Date of Service: October 16, 2016. Provider Documentation: SUBJECTIVE: says when lying down no sob afebrile no chest pain no nausea worried she may become breath if starts walking OBJECTIVE: Vital Signs-as noted below Exam: General-alert and awake and oriented ENT-normal hearing Neck-no neck masses Lungs-cta b/l no wheezing or crackles Heart-s1 and s2 heard irregular no murmurs Abdomen-soft bowel sounds present non tender no distension Extremities- no edema no erythema Neuro-alert and awake moves extremities Lab data as noted below. ASSESSMENT & PLAN: High probability of PE on v/q scan at [facility] lower extremity Doppler negative echo done here consistent with PE sob for a week says sob on minimal exertion on iv heparin Consulted pulmonary as echo shows right ventricular strain no plan for TPA considering age and as patient doing fine currently as per pulmonary currently hemodynamics stable started Coumadin f/u inr Sepsis possible uti recently had esbl on iv Invanz lactic acid 3.o on presentation which is resolved now. cx no growth so far 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 will f/u labs cr 1.9 baseline Lytic lesions left frontal lytic lesion on ct scan at [facility] needs workup ordered spep and upep Hx of anemia 'will f/u labs hb 9.8 Hx of smoking advice for cessation Hx of incontinence DVT PROPHYLAXIS iv heparin and Coumadin. DISPOSITION monitor in tele Vital Signs: Date Time Temp Pulse Resp B/P Pulse Ox O2 Delivery O2 Flow Rate FiO2 10/16/16 16:00 Nasal Cannula 3.0 10/16/16 15:54 36.6 100 24 108/57 93 Nasal Cannula 3.0 10/16/16 12:00 Nasal Cannula 3.0 10/16/16 12:00 36.7 99 22 115/65 90 Nasal Cannula 3.0 10/16/16 08:00 Nasal Cannula 3.0 10/16/16 08:00 36.6 96 18 110/68 90 Nasal Cannula 3.0 10/16/16 04:44 36.6 96 18 102/60 91 Nasal Cannula 2.0 10/16/16 04:00 94 Nasal Cannula 2.0 10/15/16 23:59 94 Nasal Cannula 2.0 10/15/16 23:26 36.5 97 18 90/66 92 Nasal Cannula 2.0 10/15/16 20:00 94 Nasal Cannula 2.0 Lab Results: Results Past 24 Hours Test 10/15/16 18:15 10/16/16 04:24 10/16/16 10:46 10/16/16 11:57 Range/Units Urine Color DK YELLOW Urine Appearance CLEAR CLEAR Urine pH 5.0 4.5-7.5 Urine Specific [place] 1.027 1.000-1.030 Urine Protein 1+ NEG Urine Glucose (UA) NEG NEG Urine Ketones TRACE NEG Urine Occult Blood NEG NEG Urine Nitrite NEG NEG Urine Bilirubin NEG NEG Urine Urobilinogen NEG NEG Urine Leukocyte Esterase TRACE NEG Urine WBC (Auto) 10-30 0-5 /hpf Urine RBC (Auto) 0-4 0-4 /hpf Urine Hyaline Casts (Auto) 5-10 0-5 /lpf Urine Epithelial Cells (Auto) 20-30 0-5 /lpf Urine Bacteria (Auto) NEG NEG Urine Yeast (Auto) NONE PRSENT White Blood Count 10.23 4.8-10.8 K/uL Red Blood Count 3.31 4.2-5.4 M/uL Hemoglobin 9.8 12.0-16.0 g/dL Hematocrit 30.4 37-47 % Mean Corpuscular Volume 91.8 80-100 fL Mean Corpuscular Hemoglobin 29.6 25-34 pg Mean Corpuscular Hemoglobin Concent 32.2 32-36 g/dl Platelet Count 247 130-400 K/uL Mean Platelet Volume 9.3 7.4-10.4 fL Neutrophils (%) (Auto) 70.3 % Lymphocytes (%) (Auto) 19.6 % Monocytes (%) (Auto) 8.2 % Eosinophils (%) (Auto) 1.0 % Basophils (%) (Auto) 0.4 % Neutrophils # (Auto) 7.20 1.4-6.5 K/uL Lymphocytes # (Auto) 2.00 1.2-3.4 K/uL Monocytes # (Auto) 0.84 0.11-0.59 K/uL Eosinophils # (Auto) 0.10 0-0.5 K/uL Basophils # (Auto) 0.04 0-0.2 K/uL RDW Standard Deviation 53.4 36.4-46.3 fL RDW Coefficient of Variation 16.3 11.5-14.5 % Immature Granulocyte % (Auto) 0.5 % Immature Granulocyte # (Auto) 0.05 0.00-0.02 K/uL Nucleated RBC Absolute Count (auto) 0.08 0-0 K/uL Nucleated Red Blood Cells % 0.8 % Prothrombin Time 14.1 9.0-12.0 SECONDS Prothromb Time International Ratio 1.3 0.9-1.1 Activated Partial Thromboplast Time 92.4 56.3 21.0-31.0 SECONDS Partial Thromboplastin Ratio 3.6 2.2 Sodium Level 145 136-145 mmol/L Potassium Level 4.6 3.5-5.1 mmol/L Chloride Level 115 98-107 mmol/L Carbon Dioxide Level 19 21-32 mmol/L Anion Gap 11.0 3-11 mmol/L Blood Urea Nitrogen 35 7-18 mg/dl Creatinine 1.90 0.60-1.20 mg/dl Est Creatinine Clear Calc Drug Dose 15.6 ml/min Estimated GFR () 26.6 Estimated GFR (Non- 23.0 BUN/Creatinine Ratio 18.2 10-20 Random Glucose 105 70-99 mg/dl Calcium Level 7.4 8.5-10.1 mg/dl Arterial Blood pH 7.39 7.35-7.45 Arterial Blood Partial Pressure CO2 23 35-46 mmHg Arterial Blood Partial Pressure O2 68 80-95 mm/Hg Arterial Blood HCO3 14 19-24 mmol/L Arterial Blood Oxygen Saturation 90.7 90-95 % Arterial Blood Base Excess -9.6 -9-1.8 mEq/L Arterial Blood Gas Delivery 3L [place] Test POS POS Test 10/16/16 18:01 Range/Units Microbiology Results 10/15/16 Urine Culture - Preliminary, Resulted NO GROWTH - LESS THAN 1,000 COLONIES/...
[2016-10-17] VITALS (10 sets, daily range): BP systolic 98–120; BP diastolic 60–67; PULSE 92–100; TEMP 36.3–36.6; O2SAT 90–94
[2016-10-17] MEDS: SODIUM CHLORIDE 0.9% 1000ML 1,000 ML IV SCH ×2 (03:31→16:14)
[2016-10-17 05:17] LABS: BASO % 0.5 %; BASO ABS # 0.05 K/uL (0-0.2); COMPLETE YES; HEMATOCRIT 31.6 % (37-47); IG% 0.4 %; LYMPH % 15.8 %; LYMPH ABS # 1.73 K/uL (1.2-3.4); MEAN CELL VOLUME 91.6 fL (80-100); MEAN CORPUSCULAR HEMOGLOBIN 28.4 pg (25-34); MEAN PLATELET VOLUME 9.1 fL (7.4-10.4); MONO % 7.6 %; NEUT % 74.7 %; PLATELET COUNT 251 K/uL (130-400); RED BLOOD COUNT 3.45 M/uL (4.2-5.4); WHITE BLOOD COUNT 10.97 K/uL (4.8-10.8)
[2016-10-17 05:33] LABS: INR 1.4 (0.9-1.1); PROTHROMBIN TIME (PATIENT) 15.7 SECONDS (9.0-12.0)
[2016-10-17 05:42] LABS: BUN/CREATININE RATIO 18.7 (10-20); CALCIUM 7.4 mg/dl (8.5-10.1); CREATININE 1.8 mg/dl (0.60-1.20); POTASSIUM 4.6 mmol/L (3.5-5.1)
[2016-10-17] MEDS: PANTOprazole SOD 40 MG TAB PO SCH (08:19)
--- NOTE | 2016-10-17 10:53 | Pulmonology Progress Note ---
Pulmonary Progress Note Date of Service October 17, 2016. Attending Dr. Cosme Subjective Feels ok, no dyspnea at rest. Objective General Appearance: WELL-APPEARING, WD/WN, NO APPARENT DISTRESS Head: NORMOCEPHALIC, ATRAUMATIC Neck: NORMAL RANGE OF MOTION, NO TENDERNESS, TRACHEA MIDLINE, NO STRIDOR Respiratory: BREATH SOUNDS NORMAL, CLEAR TO AUSCULTATION, NO RESPIRATORY DISTRESS Cardiovasular: REGULAR RATE/RHYTHM, NORMAL S1S2, NO MURMUR Abdomen: NON TENDER, NO REBOUND Upper Extremities: NO EDEMA Lower Extremities: NO EDEMA Neuro: ALERT, ORIENTED x 3, NORMAL MOTOR EXAM VQ scan 10/14 (see scanned report) - 2 defects on the right and 2 defects on the left Echo 10/15 done here: * Small, underfilled, LV chamber with mild concentric LVH. * Hyperdynamic LV systolic function, EF >70%. * No segmental left ventricular wall motion abnormalities are noted. * Grade I diastolic dysfunction. * The right ventricle is moderately dilated. * The right ventricular systolic function is reduced as assessed by tricuspid annular plane systolic excursion (TAPSE) (TAPSE <1.6 cm). * Lateral wall akinesis with normal apical wall motion consistent with pulmonary embolism (aka Salinas's sign). * Mild right atrial dilation. * Aortic valve sclerosis mild, without significant aortic valvular stenosis. * Mild tricuspid regurgitation. * Small, loculated apical pericardial effusion. ABG at [place]: 7.44/21/96.5% on oxygen, flow unknown Initially, her lactic acid was 5.7, normalized later. A CT scan of the abdomen did not show hydronephrosis Blood cultures 10/13 - no growth x 2 Urine culture 10/13 - no growth Pro-BNP - 00242 Troponin - 0.031, 0.053, 0.051 Lower extremities venous Doppler - negative CT chest - subsegmental basilar atelectasis, no pneumonia Assessment & Plan This is a 89 year old female with recent admission for UTI with ESBL Klebsiella , CKD, now developed b/l pulmonary embolism. It is likely provoked, however, given CT brain appearance, there may be a neoplastic component leading to a hypercoagulable state Problems: Acute respiratory failure secondary to bilateral pulmonary embolism Right ventricular strain CKD Skull lytic lesions Recent ESBL UTI Plan: Has been on heparin since 10/14, started at [facility]. Continue to maintain therapeutic levels, monitor PTT. Continue daily Coumadin, once INR above 2, overlap with heparin for another 24 hours. I entertained the idea of thrombolysis of course, given elevated BNP, elevated troponin, near syncopal events. However, she is not profoundly hypoxic, she is 89 years old (over 65 years old the risk of bleeding triples according to some studies), has been treated for 2 days already, and she also has some concerning lytic lesions in her skull. I weighed all these arguments, and I believe that the risk of thrombolysis is not justified. May start oral anticoagulation in the form of Coumadin today. Supplement O2 Some hypercoagulable workup ordered. Also recommend looking for multiple myeloma. No susupicion of cancer based on the current CT scans. Continue tele monitoring. Data Medications: Current Inpatient Medications Medications (Trade) Dose Ordered Sig/Rissa Route Start Time Stop Time Status Last Admin Dose Admin Acetaminophen (Tylenol Tab) 650 mg Q4H PRN PO 10/14/16 18:45 11/13/16 18:44 Ondansetron HCl 4 mg 4 mg Q6H PRN IV 10/14/16 18:45 11/13/16 18:44 10/16/16 05:17 4 MG Heparin Sodium/ Dextrose 500 ml @ 16 mls/hr Q24H PRN IV 10/14/16 19:45 11/13/16 19:44 10/16/16 06:13 16 MLS/HR Sodium Chloride (Nss 1000ml) 1,000 ml @ 75 mls/hr [id number] IV 10/14/16 20:15 11/13/16 20:14 10/17/16 03:31 75 MLS/HR Pantoprazole Sodium (Protonix Tab) 40 mg DAILY PO 10/15/16 09:00 11/14/16 08:59 10/17/16 08:19 40 MG Miscellaneous Information 1 ea 1 ea UD PRN N/A 10/15/16 13:15 11/14/16 13:14 Ertapenem/Sodium Chloride (Invanz Iv/Nss 50ml) 55 ml @ 110 mls/hr Q24H IV 10/16/16 12:00 10/24/16 12:29 10/16/16 11:28 110 MLS/HR Warfarin Sodium (Coumadin Tab) 5 mg DAILY@16 PO 10/16/16 16:00 11/15/16 15:59 10/16/16 16:50 5 MG Enteral Nutritional Formula (Boost) 1 can TIDM PO 10/17/16 11:30 11/16/16 11:29 UNV I & O: 24-Hour Column 10/17/16 07:59 Intake Total 2771 ml Output Total 325 ml Balance 2446 ml Vital Signs: Date Time Temp Pulse Resp B/P Pulse Ox O2 Delivery O2 Flow Rate FiO2 10/17/16 08:03 36.6 96 20 115/66 91 Nasal Cannula 3.0 10/17/16 08:00 Nasal Cannula 3.0 10/17/16 04:00 94 Nasal Cannula 3.0 10/17/16 03:48 36.3 93 18 107/66 91 Nasal Cannula 2.0 10/17/16 00:16 36.3 94 18 98/63 93 Nasal Cannula 2.0 10/16/16 23:59 94 Nasal Cannula 3.0 10/16/16 20:00 94 Nasal Cannula 3.0 10/16/16 19:46 36.6 104 16 97/63 94 Nasal Cannula 3.0 10/16/16 16:00 Nasal Cannula 3.0 10/16/16 15:54 36.6 100 24 108/57 93 Nasal Cannula 3.0 10/16/16 12:00 Nasal Cannula 3.0 10/16/16 12:00 36.7 99 22 115/65 90 Nasal Cannula 3.0 Laboratory Results: Last 24 Hours Test 10/16/16 10:46 10/16/16 11:57 10/17/16 04:55 Arterial Blood pH 7.39 Arterial Blood Partial Pressure CO2 23 mmHg Arterial Blood Partial Pressure O2 68 mm/Hg Arterial Blood HCO3 14 mmol/L Arterial Blood Oxygen Saturation 90.7 % Arterial Blood Base Excess -9.6 mEq/L Arterial Blood Gas Delivery 3L [place] Test POS Activated Partial Thromboplast Time 56.3 SECONDS 52.0 SECONDS Partial Thromboplastin Ratio 2.2 2.0 White Blood Count 10.97 K/uL Red Blood Count 3.45 M/uL Hemoglobin 9.8 g/dL Hematocrit 31.6 % Mean Corpuscular Volume 91.6 fL Mean Corpuscular Hemoglobin 28.4 pg Mean Corpuscular Hemoglobin Concent 31.0 g/dl Platelet Count 251 K/uL Mean Platelet Volume 9.1 fL Neutrophils (%) (Auto) 74.7 % Lymphocytes (%) (Auto) 15.8 % Monocytes (%) (Auto) 7.6 % Eosinophils (%) (Auto) 1.0 % Basophils (%) (Auto) 0.5 % Neutrophils # (Auto) 8.21 K/uL Lymphocytes # (Auto) 1.73 K/uL Monocytes # (Auto) 0.83 K/uL Eosinophils # (Auto) 0.11 K/uL Basophils # (Auto) 0.05 K/uL RDW Standard Deviation 52.5 fL RDW Coefficient of Variation 16.3 % Immature Granulocyte % (Auto) 0.4 % Immature Granulocyte # (Auto) 0.04 K/uL Nucleated RBC Absolute Count (auto) 0.11 K/uL Nucleated Red Blood Cells % 1.0 % Prothrombin Time 15.7 SECONDS Prothromb Time International Ratio 1.4 Sodium Level 146 mmol/L Potassium Level 4.6 mmol/L Chloride Level 115 mmol/L Carbon Dioxide Level 21 mmol/L Anion Gap 10.0 mmol/L Blood Urea Nitrogen 34 mg/dl Creatinine 1.80 mg/dl Est Creatinine Clear Calc Drug Dose 16.5 ml/min Estimated GFR () 28.4 Estimated GFR (Non- 24.5 BUN/Creatinine Ratio 18.7 Random Glucose 100 mg/dl Calcium Level 7.4 mg/dl
[2016-10-17] MEDS: BOOST VANILLA PO SCH ×4 (11:38→17:09)
[2016-10-17] MEDS: ERTAPENEM IV 500 MG in SODIUM CHLORIDE 0.9% 50 ML IV SCH (11:39)
[2016-10-17] MEDS: WARFARIN SOD 5 MG TAB PO SCH (16:14)
--- NOTE | 2016-10-17 16:41 | Progress Note ---
Internal Med Progress Note Date of Service: October 17, 2016. Provider Documentation: SUBJECTIVE: says she was to roll in bed without getting sob hemodynamics stable no chest pain worried how she is going to do in PT OBJECTIVE: Vital Signs-as noted below Exam: General-alert and awake and oriented ENT-normal hearing Neck-no neck masses Lungs-cta b/l no wheezing or crackles Heart-s1 and s2 heard irregular no murmurs Abdomen-soft bowel sounds present non tender no distension Extremities- no edema no erythema Neuro-alert and awake moves extremities Lab data as noted below. ASSESSMENT & PLAN: High probability of PE on v/q scan at [facility] lower extremity Doppler negative echo done here consistent with PE sob for a week says sob on minimal exertion on iv heparin Consulted pulmonary as echo shows right ventricular strain no plan for TPA considering age and as patient doing fine currently as per pulmonary currently hemodynamics stable started Coumadin will f/u inr continue same Sepsis possible uti recently had esbl on iv Invanz lactic acid 3.o on presentation which is resolved now. cx no growth so far ID on board and appreciate inputs cx negative so far will stop abx and monitor Arf on ckd stage 4 will f/u labs cr 1.9 baseline Lytic lesions left frontal lytic lesion on ct scan at [facility] needs workup ordered spep and upep Hx of anemia 'will f/u labs hb 9.8 Hx of smoking advice for cessation Hx of incontinence DVT PROPHYLAXIS iv heparin and Coumadin. DISPOSITION monitor in tele pt/ot Vital Signs: Date Time Temp Pulse Resp B/P Pulse Ox O2 Delivery O2 Flow Rate FiO2 10/17/16 12:00 Nasal Cannula 3.0 10/17/16 12:00 36.6 97 22 107/60 90 Nasal Cannula 3.0 10/17/16 08:03 36.6 96 20 115/66 91 Nasal Cannula 3.0 10/17/16 08:00 Nasal Cannula 3.0 10/17/16 04:00 94 Nasal Cannula 3.0 10/17/16 03:48 36.3 93 18 107/66 91 Nasal Cannula 2.0 10/17/16 00:16 36.3 94 18 98/63 93 Nasal Cannula 2.0 10/16/16 23:59 94 Nasal Cannula 3.0 10/16/16 20:00 94 Nasal Cannula 3.0 10/16/16 19:46 36.6 104 16 97/63 94 Nasal Cannula 3.0 Lab Results: Results Past 24 Hours Test 10/17/16 04:55 Range/Units White Blood Count 10.97 4.8-10.8 K/uL Red Blood Count 3.45 4.2-5.4 M/uL Hemoglobin 9.8 12.0-16.0 g/dL Hematocrit 31.6 37-47 % Mean Corpuscular Volume 91.6 80-100 fL Mean Corpuscular Hemoglobin 28.4 25-34 pg Mean Corpuscular Hemoglobin Concent 31.0 32-36 g/dl Platelet Count 251 130-400 K/uL Mean Platelet Volume 9.1 7.4-10.4 fL Neutrophils (%) (Auto) 74.7 % Lymphocytes (%) (Auto) 15.8 % Monocytes (%) (Auto) 7.6 % Eosinophils (%) (Auto) 1.0 % Basophils (%) (Auto) 0.5 % Neutrophils # (Auto) 8.21 1.4-6.5 K/uL Lymphocytes # (Auto) 1.73 1.2-3.4 K/uL Monocytes # (Auto) 0.83 0.11-0.59 K/uL Eosinophils # (Auto) 0.11 0-0.5 K/uL Basophils # (Auto) 0.05 0-0.2 K/uL RDW Standard Deviation 52.5 36.4-46.3 fL RDW Coefficient of Variation 16.3 11.5-14.5 % Immature Granulocyte % (Auto) 0.4 % Immature Granulocyte # (Auto) 0.04 0.00-0.02 K/uL Nucleated RBC Absolute Count (auto) 0.11 0-0 K/uL Nucleated Red Blood Cells % 1.0 % Prothrombin Time 15.7 9.0-12.0 SECONDS Prothromb Time International Ratio 1.4 0.9-1.1 Activated Partial Thromboplast Time 52.0 21.0-31.0 SECONDS Partial Thromboplastin Ratio 2.0 Sodium Level 146 136-145 mmol/L Potassium Level 4.6 3.5-5.1 mmol/L Chloride Level 115 98-107 mmol/L Carbon Dioxide Level 21 21-32 mmol/L Anion Gap 10.0 3-11 mmol/L Blood Urea Nitrogen 34 7-18 mg/dl Creatinine 1.80 0.60-1.20 mg/dl Est Creatinine Clear Calc Drug Dose 16.5 ml/min Estimated GFR () 28.4 Estimated GFR (Non- 24.5 BUN/Creatinine Ratio 18.7 10-20 Random Glucose 100 70-99 mg/dl Calcium Level 7.4 8.5-10.1 mg/dl Microbiology Results 10/17/16 C.difficile Toxin B Gene (PCR) - Final, Complete No C. difficile toxin B gene detected
[2016-10-18] VITALS (10 sets, daily range): BP systolic 94–123; BP diastolic 63–75; PULSE 90–99; TEMP 36.3–36.6; O2SAT 92–96
[2016-10-18 05:24] LABS: BASO % 0.2 %; BASO ABS # 0.02 K/uL (0-0.2); COMPLETE YES; EOS % 2.2 %; HEMATOCRIT 30.4 % (37-47); IG% 0.4 %; LYMPH % 16.8 %; LYMPH ABS # 1.76 K/uL (1.2-3.4); MEAN CELL VOLUME 93.5 fL (80-100); MEAN CORPUSCULAR HEMOGLOBIN 30.2 pg (25-34); MEAN CORPUSCULAR HGB CONC 32.2 g/dl (32-36); MEAN PLATELET VOLUME 8.6 fL (7.4-10.4); MONO % 7.1 %; NEUT % 73.3 %; PLATELET COUNT 225 K/uL (130-400); RED BLOOD COUNT 3.25 M/uL (4.2-5.4); WHITE BLOOD COUNT 10.45 K/uL (4.8-10.8)
[2016-10-18 05:49] LABS: PARTIAL THROMBOPLASTIN RATIO 2.4; PROTHROMBIN TIME (PATIENT) 42.5 SECONDS (9.0-12.0)
[2016-10-18 05:53] LABS: INR 3.8 (0.9-1.1)
[2016-10-18 06:01] LABS: BUN/CREATININE RATIO 19.3 (10-20); CALCIUM 7.4 mg/dl (8.5-10.1); CREATININE 1.6 mg/dl (0.60-1.20); POTASSIUM 4.3 mmol/L (3.5-5.1)
[2016-10-18] MEDS: BOOST VANILLA PO SCH ×6 (07:35→16:30)
[2016-10-18] MEDS: PANTOprazole SOD 40 MG TAB PO SCH (07:35)
--- NOTE | 2016-10-18 11:09 | Pulmonology Progress Note ---
Pulmonary Progress Note Date of Service October 18, 2016. Attending Subjective resting comfortably says she is feeling weak and tired Objective General Appearance: WELL-APPEARING, WD/WN, NO APPARENT DISTRESS Head: NORMOCEPHALIC, ATRAUMATIC Neck: NORMAL RANGE OF MOTION, NO TENDERNESS, TRACHEA MIDLINE, NO STRIDOR Respiratory: BREATH SOUNDS NORMAL, CLEAR TO AUSCULTATION, NO RESPIRATORY DISTRESS Cardiovasular: REGULAR RATE/RHYTHM, NORMAL S1S2, NO MURMUR Abdomen: NON TENDER, NO REBOUND Upper Extremities: NO EDEMA Lower Extremities: NO EDEMA Neuro: ALERT, ORIENTED x 3, NORMAL MOTOR EXAM VQ scan 10/14 (see scanned report) - 2 defects on the right and 2 defects on the left Echo 10/15 done here: * Small, underfilled, LV chamber with mild concentric LVH. * Hyperdynamic LV systolic function, EF >70%. * No segmental left ventricular wall motion abnormalities are noted. * Grade I diastolic dysfunction. * The right ventricle is moderately dilated. * The right ventricular systolic function is reduced as assessed by tricuspid annular plane systolic excursion (TAPSE) (TAPSE <1.6 cm). * Lateral wall akinesis with normal apical wall motion consistent with pulmonary embolism (aka Salinas's sign). * Mild right atrial dilation. * Aortic valve sclerosis mild, without significant aortic valvular stenosis. * Mild tricuspid regurgitation. * Small, loculated apical pericardial effusion. ABG at [place]: 7.44/21/96.5% on oxygen, flow unknown Initially, her lactic acid was 5.7, normalized later. A CT scan of the abdomen did not show hydronephrosis Blood cultures 10/13 - no growth x 2 Urine culture 10/13 - no growth Pro-BNP - 19448 Troponin - 0.031, 0.053, 0.051 Lower extremities venous Doppler - negative CT chest - subsegmental basilar atelectasis, no pneumonia Assessment & Plan This is a 89 year old female with recent admission for UTI with ESBL Klebsiella , CKD, now developed b/l pulmonary embolism. It is likely provoked, however, given CT brain appearance, there may be a neoplastic component leading to a hypercoagulable state Problems: Acute respiratory failure secondary to bilateral pulmonary embolism Right ventricular strain CKD Skull lytic lesions Recent ESBL UTI Plan: Has been on heparin since 10/14, started at [facility]. Continue to maintain therapeutic levels, monitor PTT. Continue daily Coumadin, once INR above 2, overlap with heparin for another 24 hours. pt/ot assess for home o2 prior to d/c recommend to d/c viera Needs repeat echo in 6-9 months to assess for pulmonary hypertension Data Medications: Current Inpatient Medications Medications (Trade) Dose Ordered Sig/Rissa Route Start Time Stop Time Status Last Admin Dose Admin Acetaminophen (Tylenol Tab) 650 mg Q4H PRN PO 10/14/16 18:45 11/13/16 18:44 Ondansetron HCl 4 mg 4 mg Q6H PRN IV 10/14/16 18:45 11/13/16 18:44 10/16/16 05:17 4 MG Heparin Sodium/ Dextrose (Heparin 25,000 Unit/500ml D5W) 500 ml @ 16 mls/hr Q24H PRN IV 10/14/16 19:45 11/13/16 19:44 10/16/16 06:13 16 MLS/HR Pantoprazole Sodium (Protonix Tab) 40 mg DAILY PO 10/15/16 09:00 11/14/16 08:59 10/18/16 07:35 40 MG Miscellaneous Information 1 ea UD PRN N/A 10/15/16 13:15 11/14/16 13:14 Warfarin Sodium (Coumadin Tab) 5 mg DAILY@16 PO 10/16/16 16:00 11/15/16 15:59 Future Hold 10/17/16 16:14 5 MG Enteral Nutritional Formula (Boost) 1 can TIDM PO 10/17/16 11:30 11/16/16 11:29 10/18/16 07:35 1 CAN I & O: 24-Hour Column 10/18/16 08:00 Intake Total 1442 ml Output Total 350 ml Balance 1092 ml Vital Signs: Date Time Temp Pulse Resp B/P Pulse Ox O2 Delivery O2 Flow Rate FiO2 10/18/16 08:00 96 Nasal Cannula 3.0 10/18/16 07:54 36.6 95 19 116/75 96 Nasal Cannula 3.0 10/18/16 04:00 94 Nasal Cannula 3.0 10/18/16 03:50 36.4 90 20 94/72 92 Nasal Cannula 3.0 10/17/16 23:59 94 Nasal Cannula 3.0 10/17/16 22:57 36.4 92 17 115/65 94 Nasal Cannula 3.0 10/17/16 20:00 94 Nasal Cannula 3.0 10/17/16 19:09 36.5 100 20 120/62 94 Nasal Cannula 3.0 10/17/16 16:00 Nasal Cannula 3.0 10/17/16 15:04 36.6 98 20 114/67 92 Nasal Cannula 2.0 10/17/16 12:00 Nasal Cannula 3.0 10/17/16 12:00 36.6 97 22 107/60 90 Nasal Cannula 3.0 Laboratory Results: Last 24 Hours Test 10/18/16 05:14 White Blood Count 10.45 K/uL Red Blood Count 3.25 M/uL Hemoglobin 9.8 g/dL Hematocrit 30.4 % Mean Corpuscular Volume 93.5 fL Mean Corpuscular Hemoglobin 30.2 pg Mean Corpuscular Hemoglobin Concent 32.2 g/dl Platelet Count 225 K/uL Mean Platelet Volume 8.6 fL Neutrophils (%) (Auto) 73.3 % Lymphocytes (%) (Auto) 16.8 % Monocytes (%) (Auto) 7.1 % Eosinophils (%) (Auto) 2.2 % Basophils (%) (Auto) 0.2 % Neutrophils # (Auto) 7.66 K/uL Lymphocytes # (Auto) 1.76 K/uL Monocytes # (Auto) 0.74 K/uL Eosinophils # (Auto) 0.23 K/uL Basophils # (Auto) 0.02 K/uL RDW Standard Deviation 53.7 fL RDW Coefficient of Variation 16.7 % Immature Granulocyte % (Auto) 0.4 % Immature Granulocyte # (Auto) 0.04 K/uL Prothrombin Time 42.5 SECONDS Prothromb Time International Ratio 3.8 Activated Partial Thromboplast Time 62.5 SECONDS Partial Thromboplastin Ratio 2.4 Sodium Level 145 mmol/L Potassium Level 4.3 mmol/L Chloride Level 115 mmol/L Carbon Dioxide Level 22 mmol/L Anion Gap 8.0 mmol/L Blood Urea Nitrogen 31 mg/dl Creatinine 1.60 mg/dl Est Creatinine Clear Calc Drug Dose 18.5 ml/min Estimated GFR () 32.8 Estimated GFR (Non- 28.3 BUN/Creatinine Ratio 19.3 Random Glucose 100 mg/dl Calcium Level 7.4 mg/dl
--- NOTE | 2016-10-18 17:40 | Progress Note ---
Internal Med Progress Note Date of Service: October 18, 2016. Provider Documentation: SUBJECTIVE: resting comfortably sat on the chair yesterday worried about ambulation afebrile eating ok OBJECTIVE: Vital Signs-as noted below Exam: General-alert and awake and oriented ENT-normal hearing Neck-no neck masses Lungs-cta b/l no wheezing or crackles Heart-s1 and s2 heard irregular no murmurs Abdomen-soft bowel sounds present non tender no distension Extremities- no edema no erythema Neuro-alert and awake moves extremities Lab data as noted below. ASSESSMENT & PLAN: 89F was sent in from [facility] for management of acute PE and possible sepsis with elevated lactic acid. On iv heparin. echo showed right heart strain. consulted pulmonary but no Tpa because of age and as patient is doing ok.LACTIC ACID 3.0 ON PRESENTATION. Recent hx of esbl. Was placed on Primaxin and ID was consulted. ID changed abx to Invanz. Lactic acid normalized and cultures no growth so far. Stopped abx and monitoring. Inr 3.8 today Coumadin held. Await pt/ot evaluations> High probability of PE on v/q scan at [facility] lower extremity Doppler negative echo done here consistent with PE sob for a week says sob on minimal exertion on iv heparin Consulted pulmonary as echo shows right ventricular strain no plan for TPA considering age and as patient doing fine currently as per pulmonary currently hemodynamics stable started Coumadin inr 1.4 to 3.8 today will hold Coumadin and f/u inr Will f/u how patient does in PT Sepsis possible uti recently had esbl on iv Invanz lactic acid 3.o on presentation which is resolved now. 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 DISPOSITION monitor in tele pt/ot social service for d/c planning Vital Signs: Date Time Temp Pulse Resp B/P Pulse Ox O2 Delivery O2 Flow Rate FiO2 10/18/16 16:12 36.6 99 24 121/63 94 Nasal Cannula 3.0 5/29/17 16:00 96 Nasal Cannula 3.0 10/18/16 12:00 95 Nasal Cannula 2.0 10/18/16 11:59 36.5 97 19 116/72 94 Nasal Cannula 3.0 10/18/16 08:00 96 Nasal Cannula 3.0 10/18/16 07:54 36.6 95 19 116/75 96 Nasal Cannula 3.0 10/18/16 04:00 94 Nasal Cannula 3.0 10/18/16 03:50 36.4 90 20 94/72 92 Nasal Cannula 3.0 10/17/16 23:59 94 Nasal Cannula 3.0 10/17/16 22:57 36.4 92 17 115/65 94 Nasal Cannula 3.0 Lab Results: Results Past 24 Hours Test 10/18/16 05:14 10/18/16 17:39 Range/Units White Blood Count 10.45 4.8-10.8 K/uL Red Blood Count 3.25 4.2-5.4 M/uL Hemoglobin 9.8 12.0-16.0 g/dL Hematocrit 30.4 37-47 % Mean Corpuscular Volume 93.5 80-100 fL Mean Corpuscular Hemoglobin 30.2 25-34 pg Mean Corpuscular Hemoglobin Concent 32.2 32-36 g/dl Platelet Count 225 130-400 K/uL Mean Platelet Volume 8.6 7.4-10.4 fL Neutrophils (%) (Auto) 73.3 % Lymphocytes (%) (Auto) 16.8 % Monocytes (%) (Auto) 7.1 % Eosinophils (%) (Auto) 2.2 % Basophils (%) (Auto) 0.2 % Neutrophils # (Auto) 7.66 1.4-6.5 K/uL Lymphocytes # (Auto) 1.76 1.2-3.4 K/uL Monocytes # (Auto) 0.74 0.11-0.59 K/uL Eosinophils # (Auto) 0.23 0-0.5 K/uL Basophils # (Auto) 0.02 0-0.2 K/uL RDW Standard Deviation 53.7 36.4-46.3 fL RDW Coefficient of Variation 16.7 11.5-14.5 % Immature Granulocyte % (Auto) 0.4 % Immature Granulocyte # (Auto) 0.04 0.00-0.02 K/uL Prothrombin Time 42.5 9.0-12.0 SECONDS Prothromb Time International Ratio 3.8 0.9-1.1 Activated Partial Thromboplast Time 62.5 21.0-31.0 SECONDS Partial Thromboplastin Ratio 2.4 Sodium Level 145 136-145 mmol/L Potassium Level 4.3 3.5-5.1 mmol/L Chloride Level 115 98-107 mmol/L Carbon Dioxide Level 22 21-32 mmol/L Anion Gap 8.0 3-11 mmol/L Blood Urea Nitrogen 31 7-18 mg/dl Creatinine 1.60 0.60-1.20 mg/dl Est Creatinine Clear Calc Drug Dose 18.5 ml/min Estimated GFR () 32.8 Estimated GFR (Non- 28.3 BUN/Creatinine Ratio 19.3 10-20 Random Glucose 100 70-99 mg/dl Calcium Level 7.4 8.5-10.1 mg/dl
[2016-10-18] MEDS: HEPARIN 25,000 UNIT/500ML D5W 500 ML IV PRN (18:47)
[2016-10-18] MEDS ORDERED: BENZONATATE 100MG CAP PO PRN (22:00)
[2016-10-19] VITALS (7 sets, daily range): BP systolic 93–136; BP diastolic 51–79; PULSE 92–106; TEMP 36.4–36.8; O2SAT 94–98
[2016-10-19 04:49] LABS: BASO % 0.2 %; BASO ABS # 0.02 K/uL (0-0.2); COMPLETE YES; EOS % 2.8 %; HEMATOCRIT 31.1 % (37-47); IG% 0.3 %; LYMPH % 19.8 %; LYMPH ABS # 1.93 K/uL (1.2-3.4); MEAN CELL VOLUME 91.7 fL (80-100); MEAN CORPUSCULAR HEMOGLOBIN 27.4 pg (25-34); MEAN CORPUSCULAR HGB CONC 29.9 g/dl (32-36); MEAN PLATELET VOLUME 8.6 fL (7.4-10.4); MONO % 6.8 %; NEUT % 70.1 %; PLATELET COUNT 212 K/uL (130-400); RED BLOOD COUNT 3.39 M/uL (4.2-5.4); WHITE BLOOD COUNT 9.76 K/uL (4.8-10.8)
[2016-10-19 05:06] LABS: PARTIAL THROMBOPLASTIN RATIO 2.5; PROTHROMBIN TIME (PATIENT) 54.5 SECONDS (9.0-12.0)
[2016-10-19 05:08] LABS: BUN/CREATININE RATIO 23.5 (10-20); CALCIUM 7.5 mg/dl (8.5-10.1); CREATININE 1.2 mg/dl (0.60-1.20); POTASSIUM 4.4 mmol/L (3.5-5.1)
[2016-10-19 05:09] LABS: INR 4.8 (0.9-1.1)
[2016-10-19 05:13] LABS: FERRITIN 241.4 ng/ml (8.0-388.0)
[2016-10-19] MEDS: HEPARIN 25,000 UNIT/500ML D5W 500 ML IV PRN (06:35)
[2016-10-19] MEDS: PANTOprazole SOD 40 MG TAB PO SCH (08:06)
[2016-10-19] MEDS: BOOST VANILLA PO SCH ×6 (08:06→18:51)
--- NOTE | 2016-10-19 11:45 | Pulmonology Progress Note ---
Pulmonary Progress Note Date of Service October 19, 2016. Attending Subjective sitting up in chair Just walked with physical therapy Objective General Appearance: WELL-APPEARING, WD/WN, NO APPARENT DISTRESS Head: NORMOCEPHALIC, ATRAUMATIC Neck: NORMAL RANGE OF MOTION, NO TENDERNESS, TRACHEA MIDLINE, NO STRIDOR Respiratory: BREATH SOUNDS NORMAL, CLEAR TO AUSCULTATION, NO RESPIRATORY DISTRESS Cardiovasular: REGULAR RATE/RHYTHM, NORMAL S1S2, NO MURMUR Abdomen: NON TENDER, NO REBOUND Upper Extremities: NO EDEMA Lower Extremities: NO EDEMA Neuro: ALERT, ORIENTED x 3, NORMAL MOTOR EXAM VQ scan 10/14 (see scanned report) - 2 defects on the right and 2 defects on the left Echo 10/15 done here: * Small, underfilled, LV chamber with mild concentric LVH. * Hyperdynamic LV systolic function, EF >70%. * No segmental left ventricular wall motion abnormalities are noted. * Grade I diastolic dysfunction. * The right ventricle is moderately dilated. * The right ventricular systolic function is reduced as assessed by tricuspid annular plane systolic excursion (TAPSE) (TAPSE <1.6 cm). * Lateral wall akinesis with normal apical wall motion consistent with pulmonary embolism (aka Salinas's sign). * Mild right atrial dilation. * Aortic valve sclerosis mild, without significant aortic valvular stenosis. * Mild tricuspid regurgitation. * Small, loculated apical pericardial effusion. ABG at [place]: 7.44/21/96.5% on oxygen, flow unknown Initially, her lactic acid was 5.7, normalized later. A CT scan of the abdomen did not show hydronephrosis Blood cultures 10/13 - no growth x 2 Urine culture 10/13 - no growth Pro-BNP - 54328 Troponin - 0.031, 0.053, 0.051 Lower extremities venous Doppler - negative CT chest - subsegmental basilar atelectasis, no pneumonia Assessment & Plan This is a 89 year old female with recent admission for UTI with ESBL Klebsiella , CKD, now developed b/l pulmonary embolism. It is likely provoked, however, given CT brain appearance, there may be a neoplastic component leading to a hypercoagulable state Problems: Acute respiratory failure secondary to bilateral pulmonary embolism Right ventricular strain CKD Skull lytic lesions Recent ESBL UTI Plan: recommend to d/c viera d/c heparin : INR above 3 for 2 days coumadin dosing as per pharmacy assess for home o2 requirement prior to d/c repeat echo in 6-9 months as outpatient will need atlest 6 months of anticoagulation answered all the questions of the patient about INR testing Will follow peripherally discharge planning as per attending Data Medications: Current Inpatient Medications Medications (Trade) Dose Ordered Sig/Rissa Route Start Time Stop Time Status Last Admin Dose Admin Acetaminophen (Tylenol Tab) 650 mg Q4H PRN PO 10/14/16 18:45 11/13/16 18:44 Ondansetron HCl (Zofran Inj) 4 mg Q6H PRN IV 10/14/16 18:45 11/13/16 18:44 10/16/16 05:17 4 MG Pantoprazole Sodium (Protonix Tab) 40 mg DAILY PO 10/15/16 09:00 11/14/16 08:59 10/19/16 08:06 40 MG Warfarin Sodium (Coumadin Tab) 5 mg DAILY@16 PO 10/16/16 16:00 11/15/16 15:59 Future Hold 10/17/16 16:14 5 MG Enteral Nutritional Formula (Boost) 1 can TIDM PO 10/17/16 11:30 11/16/16 11:29 10/19/16 08:06 1 CAN I & O: 24-Hour Column 10/19/16 08:00 Intake Total 778 ml Output Total 350 ml Balance 428 ml Vital Signs: Date Time Temp Pulse Resp B/P Pulse Ox O2 Delivery O2 Flow Rate FiO2 10/19/16 10:54 36.5 102 18 104/69 96 Nasal Cannula 2.0 Humidified Oxygen 10/19/16 08:00 36.4 100 20 123/58 94 Nasal Cannula 3.0 10/19/16 08:00 Nasal Cannula 3.0 10/19/16 04:00 Nasal Cannula 3.0 10/19/16 03:42 36.6 92 19 93/65 96 Nasal Cannula 3.0 10/19/16 00:01 Nasal Cannula 3.0 10/18/16 23:10 36.3 98 17 123/74 96 Nasal Cannula 3.0 10/18/16 20:29 36.6 99 22 101/65 95 Nasal Cannula 2.0 10/18/16 19:37 Nasal Cannula 3.0 10/18/16 16:12 36.6 99 24 121/63 94 Nasal Cannula 3.0 10/18/16 16:00 96 Nasal Cannula 3.0 10/18/16 12:00 95 Nasal Cannula 2.0 10/18/16 11:59 36.5 97 19 116/72 94 Nasal Cannula 3.0 Laboratory Results: Last 24 Hours Test 10/18/16 22:10 10/19/16 04:40 White Blood Count 9.76 K/uL Red Blood Count 3.39 M/uL Hemoglobin 9.3 g/dL Hematocrit 31.1 % Mean Corpuscular Volume 91.7 fL Mean Corpuscular Hemoglobin 27.4 pg Mean Corpuscular Hemoglobin Concent 29.9 g/dl Platelet Count 212 K/uL Mean Platelet Volume 8.6 fL Neutrophils (%) (Auto) 70.1 % Lymphocytes (%) (Auto) 19.8 % Monocytes (%) (Auto) 6.8 % Eosinophils (%) (Auto) 2.8 % Basophils (%) (Auto) 0.2 % Neutrophils # (Auto) 6.85 K/uL Lymphocytes # (Auto) 1.93 K/uL Monocytes # (Auto) 0.66 K/uL Eosinophils # (Auto) 0.27 K/uL Basophils # (Auto) 0.02 K/uL RDW Standard Deviation 52.1 fL RDW Coefficient of Variation 17.5 % Immature Granulocyte % (Auto) 0.3 % Immature Granulocyte # (Auto) 0.03 K/uL Prothrombin Time 54.5 SECONDS Prothromb Time International Ratio 4.8 Activated Partial Thromboplast Time 66.1 SECONDS Partial Thromboplastin Ratio 2.5 Sodium Level 145 mmol/L Potassium Level 4.4 mmol/L Chloride Level 116 mmol/L Carbon Dioxide Level 21 mmol/L Anion Gap 8.0 mmol/L Blood Urea Nitrogen 28 mg/dl Creatinine 1.20 mg/dl Est Creatinine Clear Calc Drug Dose 24.7 ml/min Estimated GFR () 46.4 Estimated GFR (Non- 40.0 BUN/Creatinine Ratio 23.5 Random Glucose 99 mg/dl Calcium Level 7.5 mg/dl Iron Level 22 mcg/dl Total Iron Binding Capacity 239 mcg/dl Transferrin 203 mg/dl Transferrin % Saturation 8 % Ferritin 241.4 ng/ml Total Bilirubin 0.3 mg/dl Direct Bilirubin 0.1 mg/dl Aspartate Amino Transf (AST/SGOT) 37 U/L Alanine Aminotransferase (ALT/SGPT) 99 U/L Alkaline Phosphatase 60 U/L Total Protein 5.6 gm/dl Albumin 2.2 gm/dl Vitamin B12 Level 886 pg/mL Folate 18.32 ng/mL
--- NOTE | 2016-10-19 20:46 | Progress Note ---
Medicine Progress Note Date & Time of Visit: October 19, 2016 at ~ 15:45 . Subjective Feels better. No fever. Less dyspneic, but still wearing supplemental oxygen. Occasional nonproductive cough. No chest pain. No nausea or vomiting. No diarrhea. Still has Jimenes catheter. Son visiting. . Objective Last 8 Hrs Date Time Temp Pulse Resp B/P Pulse Ox O2 Delivery O2 Flow Rate FiO2 10/19/16 19:00 36.5 106 28 136/78 98 Nasal Cannula 3.0 10/19/16 16:10 Nasal Cannula 3.0 10/19/16 16:00 Nasal Cannula 3.0 10/19/16 15:00 36.8 97 19 114/51 97 Nasal Cannula 3.0 Physical Exam: General- lying in bed, no distress Neck- + JVD Lungs- clear to auscultation Heart- regular, no murmur or gallop appreciated Abdomen- normal bowel sounds, soft, nontender Extremities- no pretibial edema or calf tenderness Neuro- alert, oriented . Laboratory Results: Last 24 Hours Test 10/18/16 22:10 10/19/16 04:40 White Blood Count 9.76 K/uL Red Blood Count 3.39 M/uL Hemoglobin 9.3 g/dL Hematocrit 31.1 % Mean Corpuscular Volume 91.7 fL Mean Corpuscular Hemoglobin 27.4 pg Mean Corpuscular Hemoglobin Concent 29.9 g/dl Platelet Count 212 K/uL Mean Platelet Volume 8.6 fL Neutrophils (%) (Auto) 70.1 % Lymphocytes (%) (Auto) 19.8 % Monocytes (%) (Auto) 6.8 % Eosinophils (%) (Auto) 2.8 % Basophils (%) (Auto) 0.2 % Neutrophils # (Auto) 6.85 K/uL Lymphocytes # (Auto) 1.93 K/uL Monocytes # (Auto) 0.66 K/uL Eosinophils # (Auto) 0.27 K/uL Basophils # (Auto) 0.02 K/uL RDW Standard Deviation 52.1 fL RDW Coefficient of Variation 17.5 % Immature Granulocyte % (Auto) 0.3 % Immature Granulocyte # (Auto) 0.03 K/uL Prothrombin Time 54.5 SECONDS Prothromb Time International Ratio 4.8 Activated Partial Thromboplast Time 66.1 SECONDS Partial Thromboplastin Ratio 2.5 Sodium Level 145 mmol/L Potassium Level 4.4 mmol/L Chloride Level 116 mmol/L Carbon Dioxide Level 21 mmol/L Anion Gap 8.0 mmol/L Blood Urea Nitrogen 28 mg/dl Creatinine 1.20 mg/dl Est Creatinine Clear Calc Drug Dose 24.7 ml/min Estimated GFR () 46.4 Estimated GFR (Non- 40.0 BUN/Creatinine Ratio 23.5 Random Glucose 99 mg/dl Calcium Level 7.5 mg/dl Iron Level 22 mcg/dl Total Iron Binding Capacity 239 mcg/dl Transferrin 203 mg/dl Transferrin % Saturation 8 % Ferritin 241.4 ng/ml Total Bilirubin 0.3 mg/dl Direct Bilirubin 0.1 mg/dl Aspartate Amino Transf (AST/SGOT) 37 U/L Alanine Aminotransferase (ALT/SGPT) 99 U/L Alkaline Phosphatase 60 U/L Total Protein 5.6 gm/dl Albumin 2.2 gm/dl Vitamin B12 Level 886 pg/mL Folate 18.32 ng/mL Assessment & Plan PULMONARY EMBOLISM Patient presented to [facility] 10/14/16 with weakness and near syncope. D-dimer was elevated. Started on IV heparin. Venous duplex lower extremities negative for DVT. CTA of chest not pursued due to renal insufficiency. V/Q scan high probability for pulmonary embolism. Echo showed RV enlargement. Patient transferred to [facility] for further management. Seen in consultation by Pulmonary Medicine. IV heparin continued. Started on warfarin. Has received 5-6 days of IV heparin. INR greater than 2 for two days. Discontinue heparin. Titrate warfarin. Duration of therapy to be determined. RECENT UTI WITH SEPSIS Seen in consultation by ID. No need for further antibiotic therapy. CKD IV / MANE Serum creatinine 2.1 at time of admission. Serum creatinine today = 1.2. Follow. LYTIC SKULL LESION Lytic lesion of frontal skull noted on CT of head performed at [facility]. SPEP pending. Will need further evaluation depending on results of SPEP. Finding discussed with son. Not discussed with patient at this time because she is very anxious about acute pulmonary embolism, discharge plans, etc. ANEMIA Hemoglobin 10.5 at time of admission; MCV 90. Anemia probably multifactorial. Iron studies demonstrated serum iron of 22, TIBC 239, transferrin 203, transferrin saturation 8, ferritin 241. Vitamin B12 886. Folate 18. Serum protein electrophoresis pending. No stool specimen obtained yet for occult blood testing. Hemoglobin today = 9.3. JIMENES CATHETER Discontinue. VTE PROPHYLAXIS Presented with acute pulmonary embolism. Management as discussed above. DISPOSITION Options discussed with patient and her son Beto. She prefers not to be transferred to inpatient rehabilitation or prison. Anticipated discharge to home with home health nursing, INR draws, PT, OT. Family Medicine follow-up with Dr. Almazan. . Current Inpatient Medications: Current Inpatient Medications Medications (Trade) Dose Ordered Sig/Rissa Route Start Time Stop Time Status Last Admin Dose Admin Acetaminophen (Tylenol Tab) 650 mg Q4H PRN PO 10/14/16 18:45 11/13/16 18:44 Ondansetron HCl (Zofran Inj) 4 mg Q6H PRN IV 10/14/16 18:45 11/13/16 18:44 10/16/16 05:17 4 MG Pantoprazole Sodium (Protonix Tab) 40 mg DAILY PO 10/15/16 09:00 11/14/16 08:59 10/19/16 08:06 40 MG Warfarin Sodium (Coumadin Tab) 5 mg DAILY@16 PO 10/16/16 16:00 11/15/16 15:59 Future Hold 10/17/16 16:14 5 MG Enteral Nutritional Formula (Boost) 1 can TIDM PO 10/17/16 11:30 11/16/16 11:29 10/19/16 18:51 1 CAN
[2016-10-20 02:27] LABS: B2 GLYCOPROTEIN IGA <9 SAU (<=20); B2 GLYCOPROTEIN IGG <9 SGU (<=20); B2 GLYCOPROTEIN IGM <9 SMU (<=20)
[2016-10-20 05:16] LABS: HEMATOCRIT 29.2 % (37-47); MEAN PLATELET VOLUME 8.8 fL (7.4-10.4); PLATELET COUNT 199 K/uL (130-400); RED BLOOD COUNT 3.14 M/uL (4.2-5.4); WHITE BLOOD COUNT 8.78 K/uL (4.8-10.8)
[2016-10-20 05:18] LABS: MEAN CORPUSCULAR HGB CONC 31.2 g/dl (32-36)
[2016-10-20 07:41] VITALS: BP 137/79; PULSE 96; TEMP 36.3; O2SAT 94
[2016-10-20] MEDS: BOOST VANILLA PO SCH ×4 (08:23→12:15)
[2016-10-20] MEDS: PANTOprazole SOD 40 MG TAB PO SCH (08:23)
[2016-10-20 08:30] VITALS: O2SAT 94
[2016-10-20 08:38] LABS: INR 3.2 (0.9-1.1)
--- NOTE | 2016-10-20 11:09 | Pulmonology Progress Note ---
Pulmonary Progress Note Date of Service October 20, 2016. Attending Subjective No new complaints viera catheter has been d/c'd appears more strong and refreshed today Objective General Appearance: WELL-APPEARING, WD/WN, NO APPARENT DISTRESS Head: NORMOCEPHALIC, ATRAUMATIC Neck: NORMAL RANGE OF MOTION, NO TENDERNESS, TRACHEA MIDLINE, NO STRIDOR Respiratory: BREATH SOUNDS NORMAL, CLEAR TO AUSCULTATION, NO RESPIRATORY DISTRESS Cardiovasular: REGULAR RATE/RHYTHM, NORMAL S1S2, NO MURMUR Abdomen: NON TENDER, NO REBOUND Upper Extremities: NO EDEMA Lower Extremities: NO EDEMA Neuro: ALERT, ORIENTED x 3, NORMAL MOTOR EXAM VQ scan 10/14 (see scanned report) - 2 defects on the right and 2 defects on the left Echo 10/15 done here: * Small, underfilled, LV chamber with mild concentric LVH. * Hyperdynamic LV systolic function, EF >70%. * No segmental left ventricular wall motion abnormalities are noted. * Grade I diastolic dysfunction. * The right ventricle is moderately dilated. * The right ventricular systolic function is reduced as assessed by tricuspid annular plane systolic excursion (TAPSE) (TAPSE <1.6 cm). * Lateral wall akinesis with normal apical wall motion consistent with pulmonary embolism (aka Salinas's sign). * Mild right atrial dilation. * Aortic valve sclerosis mild, without significant aortic valvular stenosis. * Mild tricuspid regurgitation. * Small, loculated apical pericardial effusion. ABG at [place]: 7.44/21/96.5% on oxygen, flow unknown Initially, her lactic acid was 5.7, normalized later. A CT scan of the abdomen did not show hydronephrosis Blood cultures 10/13 - no growth x 2 Urine culture 10/13 - no growth Pro-BNP - 01018 Troponin - 0.031, 0.053, 0.051 Lower extremities venous Doppler - negative CT chest - subsegmental basilar atelectasis, no pneumonia Assessment & Plan This is a 89 year old female with recent admission for UTI with ESBL Klebsiella , CKD, now developed b/l pulmonary embolism. It is likely provoked, however, given CT brain appearance, there may be a neoplastic component leading to a hypercoagulable state Problems: Acute respiratory failure secondary to bilateral pulmonary embolism Right ventricular strain CKD Skull lytic lesions Recent ESBL UTI Plan: coumadin for atleast 6 months INR needs to be periodically tested, by her pcp or coumadin clinic repeat echo in 6-9 months assess for home o2 requirement prior to d/c will sign off at this time Data Medications: Current Inpatient Medications Medications (Trade) Dose Ordered Sig/Rissa Route Start Time Stop Time Status Last Admin Dose Admin Acetaminophen (Tylenol Tab) 650 mg Q4H PRN PO 10/14/16 18:45 11/13/16 18:44 Ondansetron HCl (Zofran Inj) 4 mg Q6H PRN IV 10/14/16 18:45 11/13/16 18:44 10/16/16 05:17 4 MG Pantoprazole Sodium (Protonix Tab) 40 mg DAILY PO 10/15/16 09:00 11/14/16 08:59 10/20/16 08:23 40 MG Warfarin Sodium (Coumadin Tab) 5 mg DAILY@16 PO 10/16/16 16:00 11/15/16 15:59 Future Hold 10/17/16 16:14 5 MG Enteral Nutritional Formula (Boost) 1 can TIDM PO 10/17/16 11:30 11/16/16 11:29 10/20/16 08:23 1 CAN I & O: 24-Hour Column 10/20/16 08:00 Intake Total 920 ml Output Total 150 ml Balance 770 ml Vital Signs: Date Time Temp Pulse Resp B/P Pulse Ox O2 Delivery O2 Flow Rate FiO2 10/20/16 07:41 36.3 96 20 137/79 94 Nasal Cannula 2.0 10/20/16 01:14 Nasal Cannula 2.0 10/19/16 23:57 36.4 93 20 127/79 96 Nasal Cannula 2.0 10/19/16 21:58 36.5 106 28 98 2.0 10/19/16 19:46 Nasal Cannula 2.0 10/19/16 19:00 36.5 106 28 136/78 98 Nasal Cannula 3.0 10/19/16 16:10 Nasal Cannula 3.0 10/19/16 16:00 Nasal Cannula 3.0 10/19/16 15:00 36.8 97 19 114/51 97 Nasal Cannula 3.0 10/19/16 12:00 Nasal Cannula 3.0 Laboratory Results: Last 24 Hours Test 10/20/16 04:44 10/20/16 08:13 White Blood Count 8.78 K/uL Red Blood Count 3.14 M/uL Hemoglobin 9.1 g/dL Hematocrit 29.2 % Mean Corpuscular Volume 93.0 fL Mean Corpuscular Hemoglobin 29.0 pg Mean Corpuscular Hemoglobin Concent 31.2 g/dl RDW Standard Deviation 54.3 fL RDW Coefficient of Variation 18.0 % Platelet Count 199 K/uL Mean Platelet Volume 8.8 fL Prothrombin Time 36.0 SECONDS Prothromb Time International Ratio 3.2
--- NOTE | 2016-10-20 13:09 | Progress Note ---
Medicine Progress Note Date & Time of Visit: October 20, 2016 at 13:09 . Subjective Doing fairly well. Tires easily and has some dyspnea on exertion. Minimal nonproductive cough. No pleuritic chest pain or anginal symptoms. No nausea or vomiting. No urinary symptoms. No abnormal bruising, melena, hematochezia, hematuria. . Objective Last 8 Hrs Date Time Temp Pulse Resp B/P Pulse Ox O2 Delivery O2 Flow Rate FiO2 10/20/16 08:30 94 Nasal Cannula 2.0 10/20/16 07:41 36.3 96 20 137/79 94 Nasal Cannula 2.0 Physical Exam: General- sitting in chair, no distress Neck- + JVD Lungs- clear to auscultation Heart- regular, no murmur or gallop appreciated Abdomen- normal bowel sounds, soft, nontender Extremities- no pretibial edema or calf tenderness Neuro- alert, oriented . Laboratory Results: Last 24 Hours Test 10/20/16 04:44 10/20/16 08:13 White Blood Count 8.78 K/uL Red Blood Count 3.14 M/uL Hemoglobin 9.1 g/dL Hematocrit 29.2 % Mean Corpuscular Volume 93.0 fL Mean Corpuscular Hemoglobin 29.0 pg Mean Corpuscular Hemoglobin Concent 31.2 g/dl RDW Standard Deviation 54.3 fL RDW Coefficient of Variation 18.0 % Platelet Count 199 K/uL Mean Platelet Volume 8.8 fL Prothrombin Time 36.0 SECONDS Prothromb Time International Ratio 3.2 Assessment & Plan PULMONARY EMBOLISM Patient presented to [facility] 10/14/16 with weakness and near syncope. D-dimer was elevated. Started on IV heparin. Venous duplex lower extremities negative for DVT. CTA of chest not pursued due to renal insufficiency. V/Q scan high probability for pulmonary embolism. Echo showed RV enlargement, Patient transferred to [facility] for further management. Seen in consultation by Pulmonary Medicine. IV heparin continued. Started on warfarin. Received 5-6 days of IV heparin (started at [facility] prior to transfer to [facility]). INR greater than 2 for two days. Discontinued heparin. INR today = 3.2. Discharge on warfarin 2 mg daily starting 10/21/16. Subsequent warfarin management per [facility] in [place]. Duration of therapy to be determined. Patient was recently hospitalized, so thromboembolic event could be considered to be provoked. Should be treated for at least 6 months and potentially long-term if underlying malignancy is identified. Repeat echocardiogram in 6 months recommended. RECENT UTI WITH SEPSIS Seen in consultation by ID. No need for further antibiotic therapy. CKD IV / MANE Serum creatinine 2.1 at time of admission. Serum creatinine on 10/19 was 1.2. Follow. LYTIC SKULL LESION Lytic lesion of frontal skull noted on CT of head performed at [facility]. CT of chest, abdomen, pelvis at [facility] did not show any apparent primary malignancy. SPEP pending at time of discharge. Will need further evaluation depending on results of SPEP. Findings discussed with son. Not discussed with patient at this time per her son's request because she is very anxious about acute pulmonary embolism, discharge plans, etc. SPEP results should be checked when patient seen in clinic. If SPEP demonstrates monoclonal spike, suggest referral to Hematology / Oncology. If not, routine cancer screening should be reviewed and current. ANEMIA Hemoglobin 10.5 at time of admission; MCV 90. Anemia probably multifactorial. Iron studies demonstrated serum iron of 22, TIBC 239, transferrin 203, transferrin saturation 8, ferritin 241. Vitamin B12 886. Folate 18. Serum protein electrophoresis pending. No gross signs of GI bleeding. Hemoccult testing ordered, but no stool specimen obtained for occult blood testing. Hemoglobin today = 9.1. Recommend iron supplementation. Follow. VTE PROPHYLAXIS Presented with acute pulmonary embolism. Management as discussed above. DISPOSITION Options discussed with patient and her son Beto. She prefers not to be transferred to inpatient rehabilitation or senior care. Discharge to home with home health nursing, INR draws, PT, OT. Family Medicine follow-up with Dr. Almazan. . Consultants: Pulmonary Medicine ID . Procedures: IV medications PT OT . Current Inpatient Medications: Current Inpatient Medications Medications (Trade) Dose Ordered Sig/Rissa Route Start Time Stop Time Status Last Admin Dose Admin Acetaminophen (Tylenol Tab) 650 mg Q4H PRN PO 10/14/16 18:45 11/13/16 18:44 Ondansetron HCl (Zofran Inj) 4 mg Q6H PRN IV 10/14/16 18:45 11/13/16 18:44 10/16/16 05:17 4 MG Pantoprazole Sodium (Protonix Tab) 40 mg DAILY PO 10/15/16 09:00 6/25/17 08:59 10/20/16 08:23 40 MG Warfarin Sodium (Coumadin Tab) 5 mg DAILY@16 PO 10/16/16 16:00 11/15/16 15:59 Future Hold 10/17/16 16:14 5 MG Enteral Nutritional Formula (Boost) 1 can TIDM PO 10/17/16 11:30 11/16/16 11:29 10/20/16 12:15 1 CAN
[2016-10-20] MEDS ORDERED: CMD2 PO ×2 (13:24→13:46)
[2016-10-20] MEDS ORDERED: OXYGEN ×2 (13:24→13:43)
--- NOTE | 2016-10-20 13:39 | Discharge Instructions ---
Discharge Instructions Date of Service October 20, 2016. Admission Reason for Admission: pulmonary emboli (blood clots in lungs) . Discharge Discharge Diagnosis / Problem: (1) Pulmonary embolism VTE Date & Time Date of VTE Diagnosis: October 14, 2016 Time of VTE Diagnosis: 16:06 Discharge Goals Goal(s): Improve function, Improve disease control Activity Recommendations Activity Limitations: as noted below Lifting Limitations: gradually increase as tolerated Exercise/Sports Limitations: gradually increase as tolerated Shower/Bathe: no limitations . Instructions / Follow-Up Instructions / Follow-Up APPOINTMENTS: FAMILY MEDICINE 10/26/2016 11:20 AM Eliseo Mcgarry MD (covering for Dr. Almazan) [facility] Clinic will contact you regarding instructions for warfarin (Coumadin) INSTRUCTIONS: Medication Instructions: * Warfarin is a medicine prescribed to prevent blood clots * Warfarin will thin your blood and help prevent new clots * Take your medications exactly as directed * Never skip a dose. Never take a double dose. If you miss a dose, take it as soon as you remember * It is important for your doctor to monitor your prothrombin time (PT). This is a lab test * Keep your appointment for lab tests Risk of Adverse Drug Reactions and Interactions: * Warfarin increases your risk of bleeding * The food you eat and other medications you take can affect how Warfarin works in your body * Ask your doctor about daily aspirin therapy * It is very important to talk with your doctor about all of the other medicines , antibiotics, vitamins or herbal products that you are taking * All of your medication must be approved by your doctor, including new medicines, as well as medicines you have taken before you started taking Warfarin Diet: * In order for Warfarin to work properly, it is important to keep your intake of Vitamin K as consistent as possible * You should avoid any sudden change in Vitamin K intake * Report any significant changes in your diet or weight to your doctor Call your Primary Care doctor if you experience any of the following: * Swelling or Pain in your leg * Sudden, continuous pain deep in a muscle * Pain that worsens when you are active or when you stand still for a long time * Chest Pain * Sudden Shortness of Breath * Rapid or pounding heart beat * Fainting * Dizziness * Cough with blood or bloody sputum * Sweating more than normal * Bruises * Heavy or uncontrolled bleeding * Blood in your urine, stool or vomit * Black or tarry stools Caring for Your Self at Home: * Avoid sitting, standing or lying down for long periods without moving your legs and feet * When traveling by car, stop to get out and move around at least once every 3 hours * On long airplane, train or bus rides, get up and move around when possible * If you can't get up, wiggle your toes and tighten your calves to keep your blood moving Follow Up: It is important for you to keep your follow up appointments with your medical provider. ADDITIONAL INSTRUCTIONS: Warfarin (Coumadin) is being prescribed to treat the blood clots. Dose will vary. Start taking it on 10/21/16. Initial dose will be 1 pill (2 mg) daily - please take it in the evening. Prescription was sent to [facility]. [facility] in [place] will contact you with further instructions. Your blood pressures were running relatively low, probably because of the blood clots in your lungs. Please stop taking lisinopril (Prinivil or Zestril), furosemide (Lasix), and potassium pills (save them in case they are restarted later). Do not take aspirin while you are taking warfarin (Coumadin). Apply ice packs to your right arm where your IV leaked. Seek medical attention if you develop fever, worsening pain, swelling of arm. Wear oxygen 2 liters / min when you are walking or if you are short of breath. Call if you have any questions or problems. My cell # is [phone]. You can also reach a [facility] hospitalist on duty at [facility] 24 hours a day by calling [phone]. Please take good care of yourself. Armando Gonzalez . Current Hospital Diet Patient's current hospital diet: Regular Diet Discharge Diet Recommended Diet: AHA Diet (Heart Healthy) Pending Studies Studies pending at discharge: yes List of pending studies: Some blood test results were still pending at the time of discharge. Dr. Mcgarry can check results when you see him in clinic. Medical Emergencies . Who to Call and When: Medical Emergencies: If at any time you feel your situation is an emergency, please call 911 immediately. . Non-Emergent Contact Non-Emergency issues call your: Primary Care Provider, Hospital Doctor . . "Provider Documentation" section prepared by Armando Gonzalez. . VTE Core Measure Inpt VTE Proph given/why not?: Treatment not indicated (diagnosis made prior to transfer) Reason no anticoag overlap I/P: Treatment provided - N/A Reason no anticoag overlap @DC: Treatment not indicated
[2016-10-20 15:00] VITALS: BP 137/79; PULSE 96; TEMP 36.3; O2SAT 94
[2016-10-20 16:31] LABS: ALBUMIN 2.4 G/DL (3.8-4.8); GAMMA GLOBULIN 0.7 G/DL (0.8-1.7); TOTAL PROTEIN 5.2 G/DL (6.2-8.3)
--- NOTE | 2016-10-20 23:09 | Discharge Summary ---
Discharge Summary Date of Service October 20, 2016. Discharge Summary Admission Date: October 14, 2016 at 18:49 Discharge Date: October 20, 2016 Discharge Disposition: Home with services Principal Diagnosis: pulmonary emboli . 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 Work-up pending. Status: Chronic (5) HTN (hypertension) Status: Chronic (6) Sepsis Status: Resolved Surgical Problems: (1) History of hysterectomy . Procedures: IV medications PT OT . Consultations: Pulmonary Medicine ID . Pending Studies/Follow-Up: Please check CBC and BMP in clinic. . Medication Reconciliation New Medications: Home O2 Therapy (Oxygen) Gas 1 LITER NA DAILY, #2 O2 2 LPM via nasal cannula Needs concentrator + portable O2 Dx: hypoxia, pulmonary emboli Warfarin Sod (Coumadin) 2 Mg Tab 2 MG PO DAILY, #30 TAB 5 Refills Initial dose on 10/21 will be 1 pill (2 mg) daily. Further instructions per [facility]. Continued Medications: Multiple Vitamins W/ Minerals (Centrum Silver Adult 50+) 1 Tab Tab 1 TAB PO DAILY Omeprazole (Prilosec) 20 Mg Capcr 20 MG PO DAILY, CAP Discontinued Medications: Aspirin (Aspirin Chewable) 81 Mg Chew 81 MG PO DAILY Furosemide (Lasix) 20 Mg Tab 20 MG PO DAILY, TAB Lisinopril (Zestril) 40 Mg Tab 40 MG PO DAILY, TAB Potassium Chloride (Klor-Con M20) 20 Meq Tabcr 20 MEQ PO DAILY Admission Information HPI (per Admitting provider): HISTORY OF PRESENT ILLNESS: The patient is an 89-year-old female with a history of hypertension, CKD stage 4 and anemia presenting from [facility] for transfer per family request. The patient was recently admitted to [facility] on last September 08 through for urinary tract infection caused by ESBL Klebsiella and the patient completed 7 days of IV Invanz as an outpatient. The patient was apparently doing fine after that except for about a week and half ago when she started to have dizziness and shortness of breath with minimal exertion. Per [facility] report, there are episodes of "passing out," but per the patient she has never passed out. She denies having any fever, chills, cough, sputum production, abdominal pain and changes with urination, but does report some diarrhea after taking the IV antibiotics. She then presented to the ER from [facility] yesterday for further evaluation and management. The patient's initial lab tests did show that the patient was meeting SIRS criteria with elevation of lactic acid to 5. For this, urine and blood cultures were obtained and the patient was started on meropenem and Flagyl for C. difficile. Also, her D-dimer was elevated at 15 and apparently the VQ scan reports are pending right now did reveal PE and echocardiogram also did revealed some RV dilatation and hence the patient was started on heparin over there. Also, BNP was elevated at 78,000 although chest x-ray was clear. The patient was given IV Lasix. Her creatinine on admission was 1.8 and today is 2.1. CT of the head over there also did reveal a lytic lesion 2 cm anterior on left frontal bone. The patient has been transferred to [facility] for further evaluation and management per family request. On my exam, the patient is resting in bed, comfortable, smiling, pleasant, awake, alert and oriented x3. She is on 2 liters nasal cannula. She says that she feels fine when she is resting. She is conversant and answered all questions. She denies active shortness of breath, chest pain, headache, nausea, vomiting, abdominal pain and changes with urination. The patient had 2 bowel movements today which was soft. No other symptoms were noted. . Physical Exam (per Admitting): VITAL SIGNS: Blood pressure is 102/71 pulse rate of 105, respiratory rate of 14, temperature 36.7 and saturating 94% on room air. GENERAL: The patient is awake, alert, oriented x3, not in distress, speaks in sentences. No accessory muscle use. HEAD AND NECK: Atraumatic and normocephalic. Normal pupils. Full EOMs. No icterus. Mckinnon conjunctivae. ENT: Dry oral mucosa. NECK: No JVD, no lymphadenopathy, no thyromegaly. HEART: Normal rate. Regular rhythm with S1, S2. No murmurs. LUNGS: Clear breath sounds bilaterally. No rales or wheezes. ABDOMEN: Nondistended, normal bowel sounds, soft, nontender. EXTREMITIES: No bipedal edema noted. No rashes. NEUROLOGIC: No gross focal motor or sensory deficits. . Hospital Course PULMONARY EMBOLISM Patient presented to [facility] 10/14/16 with weakness and near syncope. D-dimer was elevated. Started on IV heparin. Venous duplex lower extremities negative for DVT. CTA of chest not pursued due to renal insufficiency. V/Q scan high probability for pulmonary embolism. Echo showed RV enlargement, Patient transferred to [facility] for further management. Seen in consultation by Pulmonary Medicine. IV heparin continued. Started on warfarin. Received 5-6 days of IV heparin (started at [facility] prior to transfer to [facility]). INR greater than 2 for two days. Discontinued heparin. INR day of discharge was 3.2. Discharge on warfarin 2 mg daily starting 10/21/16. Subsequent warfarin management per [facility] in [place]. Duration of therapy to be determined. Patient was recently hospitalized, so thromboembolic event could be considered to be provoked. Should be treated for at least 6 months and potentially long-term if underlying malignancy is identified. Repeat echocardiogram in 6 months recommended. RECENT UTI WITH SEPSIS Seen in consultation by ID. No need for further antibiotic therapy. CKD IV / MANE Serum creatinine 2.1 at time of admission. Serum creatinine on 10/19 was 1.2. Follow. LYTIC SKULL LESION Lytic lesion of frontal skull noted on CT of head performed at [facility]. CT of chest, abdomen, pelvis at [facility] did not show any apparent primary malignancy. Findings discussed with son. Not discussed with patient at this time per her son's request because she is very anxious about acute pulmonary embolism, discharge plans, etc. SPEP pending at time of discharge, but reported later the day of discharge. No monoclonal spike noted. Routine cancer screening should be reviewed and current. Follow clinical symptoms with follow-up imaging as indicated. ANEMIA Hemoglobin 10.5 at time of admission; MCV 90. Anemia probably multifactorial, at least partly secondary to anemia of chronic kidney disease. Iron studies demonstrated serum iron of 22, TIBC 239, transferrin 203, transferrin saturation 8, ferritin 241. Vitamin B12 886. Folate 18. Serum protein electrophoresis pending. No gross signs of GI bleeding. Hemoccult testing ordered, but no stool specimen obtained for occult blood testing. Hemoglobin day of discharge was 9.1. Recommend iron supplementation. Follow. VTE PROPHYLAXIS Presented with acute pulmonary embolism. Management as discussed above. DISPOSITION Options discussed with patient and her son Beto. She preferred not to be transferred to inpatient rehabilitation or intermediate. Discharged to home with home health nursing, INR draws, PT, OT. Family Medicine follow-up with Dr. Almazan. . Total time spent on discharge = 45 minutes. This includes examination of the patient, discharge planning, medication reconciliation, and communication with other providers. . Discharge Instructions Date of Service October 20, 2016. Admission Reason for Admission: pulmonary emboli (blood clots in lungs) . Discharge Discharge Diagnosis / Problem: (1) Pulmonary embolism VTE Date & Time Date of VTE Diagnosis: October 14, 2016 Time of VTE Diagnosis: 16:06 Discharge Goals Goal(s): Improve function, Improve disease control Activity Recommendations Activity Limitations: as noted below Lifting Limitations: gradually increase as tolerated Exercise/Sports Limitations: gradually increase as tolerated Shower/Bathe: no limitations . Instructions / Follow-Up Instructions / Follow-Up APPOINTMENTS: FAMILY MEDICINE 10/26/2016 11:20 AM Eliseo Mcgarry MD (covering for Dr. Almazan) [facility] Clinic will contact you regarding instructions for warfarin (Coumadin) INSTRUCTIONS: Medication Instructions: * Warfarin is a medicine prescribed to prevent blood clots * Warfarin will thin your blood and help prevent new clots * Take your medications exactly as directed * Never skip a dose. Never take a double dose. If you miss a dose, take it as soon as you remember * It is important for your doctor to monitor your prothrombin time (PT). This is a lab test * Keep your appointment for lab tests Risk of Adverse Drug Reactions and Interactions: * Warfarin increases your risk of bleeding * The food you eat and other medications you take can affect how Warfarin works in your body * Ask your doctor about daily aspirin therapy * It is very important to talk with your doctor about all of the other medicines , antibiotics, vitamins or herbal products that you are taking * All of your medication must be approved by your doctor, including new medicines, as well as medicines you have taken before you started taking Warfarin Diet: * In order for Warfarin to work properly, it is important to keep your intake of Vitamin K as consistent as possible * You should avoid any sudden change in Vitamin K intake * Report any significant changes in your diet or weight to your doctor Call your Primary Care doctor if you experience any of the following: * Swelling or Pain in your leg * Sudden, continuous pain deep in a muscle * Pain that worsens when you are active or when you stand still for a long time * Chest Pain * Sudden Shortness of Breath * Rapid or pounding heart beat * Fainting * Dizziness * Cough with blood or bloody sputum * Sweating more than normal * Bruises * Heavy or uncontrolled bleeding * Blood in your urine, stool or vomit * Black or tarry stools Caring for Your Self at Home: * Avoid sitting, standing or lying down for long periods without moving your legs and feet * When traveling by car, stop to get out and move around at least once every 3 hours * On long airplane, train or bus rides, get up and move around when possible * If you can't get up, wiggle your toes and tighten your calves to keep your blood moving Follow Up: It is important for you to keep your follow up appointments with your medical provider. ADDITIONAL INSTRUCTIONS: Warfarin (Coumadin) is being prescribed to treat the blood clots. Dose will vary. Start taking it on 10/21/16. Initial dose will be 1 pill (2 mg) daily - please take it in the evening. Prescription was sent to [facility]. [facility] in [place] will contact you with further instructions. Your blood pressures were running relatively low, probably because of the blood clots in your lungs. Please stop taking lisinopril (Prinivil or Zestril), furosemide (Lasix), and potassium pills (save them in case they are restarted later). Do not take aspirin while you are taking warfarin (Coumadin). Apply ice packs to your right arm where your IV leaked. Seek medical attention if you develop fever, worsening pain, swelling of arm. Wear oxygen 2 liters / min when you are walking or if you are short of breath. Call if you have any questions or problems. My cell # is [phone]. You can also reach a [facility] hospitalist on duty at [facility] 24 hours a day by calling [phone]. Please take good care of yourself. Armando Gonzalez . Current Hospital Diet Patient's current hospital diet: Regular Diet Discharge Diet Recommended Diet: AHA Diet (Heart Healthy) Pending Studies Studies pending at discharge: yes List of pending studies: Some blood test results were still pending at the time of discharge. Dr. Mcgarry can check results when you see him in clinic. Medical Emergencies . Who to Call and When: Medical Emergencies: If at any time you feel your situation is an emergency, please call 911 immediately. . Non-Emergent Contact Non-Emergency issues call your: Primary Care Provider, Hospital Doctor . . "Provider Documentation" section prepared by Armando Gonzalez. . VTE Core Measure Inpt VTE Proph given/why not?: Treatment not indicated (diagnosis made prior to transfer) Reason no anticoag overlap I/P: Treatment provided - N/A Reason no anticoag overlap @DC: Treatment not indicated Additional Copies To Vira Almazan M.D.; Eliseo Mcgarry M.D.
[2016-10-21 07:41] LABS: ALBUMIN % 30.19 %; ALPHA-2-GLOBULIN % 19.92 %; BETA GLOBULIN % 19.54 %; CREATININE UR 145 MG/DL (20-320); GAMMA GLOBULIN % 22.83 %
== END 2016-10-20 16:45 | disposition home health service (06) | DRG 175 ==
LOC: ENRESERVTM → ENRESERVDT → UNDOADMIN 18:33 → C.2T 18:33 → C.MSICU 10-15 07:49 → C.2E 10-15 19:59 → C.4E 10-19 22:09
PROVIDERS: ADMIT Family Medicine; ATTEND Hospitalist
DX: I26.99 Other pulmonary embolism without acute cor pulmonale (principal); J96.00 Acute respiratory failure, unspecified whether with hypoxia or hypercapnia; N18.4 Chronic kidney disease, stage 4 (severe); N17.9 Acute kidney failure, unspecified; N39.0 Urinary tract infection, site not specified; I12.9 Hypertensive chronic kidney disease with stage 1 through stage 4 chronic kidney disease, or unspecified chronic kidney disease; K21.9 Gastro-esophageal reflux disease without esophagitis; D63.1 Anemia in chronic kidney disease; E03.9 Hypothyroidism, unspecified; Z79.899 Other long term (current) drug therapy